=== PATIENT | male | born 1935 | race Caucasian/White ===

== ENCOUNTER 2019-04-07 11:22 | Outpatient (CLI) | payer MEDICARE, BC, SELFPAY ==
--- NOTE | ~2019-04-07 | CT_ITS ---
EXAMINATION: CT abdomen pelvis wo con DATE: 04/07/2019 12:27 INDICATION: Mid abdominal pain. Weight loss. TECHNIQUE: Computed tomography (CT) of the abdomen and pelvis was performed without intravenous contr ast. Automated exposure control and iterative reconstruction technique were employed. Exam dose: 325 .45 mGy-cm total exam DLP. COMPARISON: None. FINDINGS: Minimal dependent atelectasis at the lung bases. Normal heart size. There is coronary art juliane calcification. No pericardial or pleural effusion. The liver, gallbladder, spleen, pancreas and adrenal glands are unremarkable on this limited noncontr ast examination. Approximately 3.9 cm exophytic upper pole left renal cyst. Probable 1.5 cm exophytic right renal cyst probable 8 mm left renal cyst. No urinary tract calculus or hydroureteronephrosis. There is prominent abdominal aortic calcification and prominent calcification at the origin of the ferguson perior mesenteric and renal arteries, bilateral iliac artery calcifications. No abdominal aortic aneu rysm. No intraperitoneal or retroperitoneal or pelvic mass lesion or adenopathy or ascites. The urinary bladder is unremarkable. Moderate prostate enlargement. There is diverticulosis of the colon; no CT evidence of diverticulitis. Normal appendix. No bowel obs truction or intraperitoneal free air. There is a prominent Schmorl's node at the superior vertebral endplate of L3. There is moderately pro minent anterior wedge burst fracture deformity of L1. IMPRESSION: Bilateral renal cysts Diverticulosis of the colon Burst fracture deformity of L1 Reviewed, dictated and finalized at Location A. Reviewed, dictated and finalized at location B. DOOR MAN
[2019-04-07 11:53] LABS: Basophils Percent Auto 0.2 % (0.2-1.2); Eosinophils Absolute Auto 0.2 K/mm3 (0-0.3); Eosinophils Percent Auto 1.9 % (0-4.4); Hematocrit 35.8 % (42.0-52.0); Hemoglobin 11.5 g/dL (14.0-18.0); Immature Granulocyte Absolute 0.03 K/mm3 (0.00-0.031); Immature Granulocyte Percent A 0.3 % (0-0.5); Lymphocytes Absolute Auto 0.76 K/mm3 (0.9-3.2); Lymphocytes Percent Auto 8.8 % (18.3-44.2); Mean Corpuscular HGB Conc 32.1 g/dl (32-36); Mean Corpuscular Hemoglobin 30.7 pg (26-34); Mean Corpuscular Volume 95.5 fl (80-100); Mean Platelet Volume 10.1 fl (7.4-10.4); Monocytes Absolute Auto 1.2 K/mm3 (0.1-0.6); Monocytes Percent Auto 13.7 % (2.6-8.5); Neutrophils Absolute Auto 6.5 K/mm3 (1.3-6.7); Neutrophils Percent Auto 75.1 % (45.5-73.1); Platelet Count Result 127 k/mm3 (150-375); Red Blood Count 3.75 M/mm3 (4.6-6.20); Red Cell Distribution Width 15.3 % (11.5-14.5); White Blood Count 8.6 K/mm3 (4.5-10.0)
[2019-04-07 12:05] LABS: Alanine Aminotransferase 28 U/L (4-50); Albumin Level 3.9 g/dL (3.5-5.1); Alkaline Phosphatase 83 U/L (38-126); Aspartate Amino Transferase 36 U/L (17-59); Bilirubin,Total 0.4 mg/dL (0.2-1.3); Blood Urea Nitrogen 48 mg/dL (9-20); Calcium 8.5 mg/dL (8.4-10.2); Carbon Dioxide 25 mmol/L (22-30); Chloride 102 mmol/L (98-107); Estimated Glomerular Filt Rate 17; Glucose 99 mg/dL (75-110); Potassium 4.1 mmol/L (3.4-5.0); Sodium 136 mmol/L (137-145)
== END 2019-04-07 11:23 | disposition home or self-care (01) ==
PROVIDERS: PCP Internal Medicine; Visit Provider Internal Medicine
DX: R63.4 Abnormal weight loss (principal); R10.9 Unspecified abdominal pain; N28.1 Cyst of kidney, acquired; K57.30 Diverticulosis of large intestine without perforation or abscess without bleeding
CPT/HCPCS: 36415; 74176; 80053; 85025

== ENCOUNTER 2019-04-13 15:04 | Outpatient (CLI) | payer MEDICARE, BC, SELFPAY ==
--- NOTE | ~2019-04-13 | US_ITS ---
EXAMINATION: US renal BI EXAM DATE: 04/13/2019 16:19 INDICATION: Disorder of kidney. TECHNIQUE: Multiple grayscale and Doppler images of the kidneys were obtained (by a technologist who performed the scan) and subsequently reviewed. Comparison is made to prior examination from 7. FINDINGS: There is bilateral renal cortical thinning. Right kidney: There is normal contour and significantly increased echogenicity. It measures 9.9 x 4. 6 x 5.3 centimeters. There is a cyst measuring 1.7 cm. There is no hydronephrosis. Left kidney: There is normal contour and echogenicity. It measures 9.3 x 4.0 x 4.7 centimeters. Ther e is a left renal cyst measuring 3 cm. Another smaller cyst measuring 8 mm. There is no hydronephro sis. Bladder unremarkable. IMPRESSION: 1. Echogenic kidneys, medical renal disease. 2. Mild renal atrophy. Reviewed, dictated and finalized at location B. NG PULLER
== END 2019-04-13 15:05 | disposition home or self-care (01) ==
PROVIDERS: PCP Internal Medicine; Visit Provider Internal Medicine
DX: N28.89 Other specified disorders of kidney and ureter (principal)
CPT/HCPCS: 76775

== ENCOUNTER 2019-07-31 16:28 | Inpatient (IN) | payer MEDICARE, BC, SELFPAY ==
[2019-07-31] VITALS (7 sets, daily range): BP systolic 102–191; BP diastolic 58–96; PULSE 45–62; RESP 16–19; TEMP 36.2–36.8; O2SAT 97–100; BMI 19.8
--- NOTE | ~2019-07-31 | CT_ITS ---
EXAMINATION: CT brain wo con DATE: 07/31/2019 16:56 INDICATION: Status post fall. Injury or laceration. Patient on blood thinners. TECHNIQUE: Computed tomography (CT) of the head was performed without intravenous contrast. The dose- length product was 605.33 mGy-cm. The mA was adjusted according to patient size. Iterative reconstruc tion technique was employed. COMPARISON: None FINDINGS: Generalized atrophy. There are scattered mild periventricular and subcortical white matter changes, most likely related to small vessel ischemic disease (microangiopathy). Chronic right lacuna r infarction of the internal capsule. Chronic left thalamic infarction. Chronic infarct of the fidel. No acute intracranial hemorrhage, infarction, mass or mass effect. Paranasal sinuses and mastoids are pneumatized. No depressed skull fractures. IMPRESSION: 1. No acute intracranial abnormality. 2: Multiple chronic infarctions, unchanged. 3: Chronic age-related findings. Reviewed, dictated and finalized at location A.
--- NOTE | ~2019-07-31 | CT_ITS ---
EXAMINATION: CT cervical spine wo con DATE: 07/31/2019 16:56 INDICATION: Neck pain after fall TECHNIQUE: Computed tomography (CT) of the cervical spine was performed without intravenous contrast. The dose-length product was 368 mGy-cm. Automated exposure control and iterative reconstruction tech [employer] were employed. COMPARISON: None FINDINGS: There is straightening of cervical lordosis. There is disc narrowing at C4-5, C5-6 and C6-7 . There are dorsal osteophytes at C5-6 and C6-7. There is degenerative anterolisthesis at C3-4. There is moderate multilevel facet and uncinate hypertrophy. Odontoid process within normal limits. Mastoi ds are pneumatized. There is intracranial atherosclerosis. There is carotid atherosclerosis. There is scarring at the right apex. IMPRESSION: 1. No acute abnormality of the cervical spine. 2: Moderate-severe cervical spondylosis. Reviewed, dictated and finalized at location A.
--- NOTE | ~2019-07-31 | CT_ITS ---
EXAMINATION: CT abdomen pelvis wo con DATE: 07/31/2019 19:19 INDICATION: Abnormal lipase TECHNIQUE: Computed tomography (CT) of the abdomen and pelvis was performed without intravenous contr ast. The dose-length product was 241.09 mGy-cm. Automated exposure control and iterative reconstructi on technique were employed. COMPARISON: CT dated 04/07/2019 FINDINGS: Right lower lobe dependent atelectasis. No significant pleural or pericardial effusion. Hea rt size normal. There is atherosclerosis of the aorta. There are small low-density lesions in the sudha er and kidneys, likely benign cysts. There is a 4 cm left renal cyst. The spleen, pancreas, adrenal g lands are unremarkable. No renal stones. No hydronephrosis. Nonobstructive bowel gas pattern. Moderat e colonic fecal loading. Diverticulosis without evidence for diverticulitis. No lymphadenopathy. Ther e is moderate gas in the colon. No significant small bowel dilation. There is an L1 burst fracture wh ich is likely chronic. There is prostate enlargement. IMPRESSION: 1. No acute abdominal abnormality. Reviewed, dictated and finalized at location A.
--- NOTE | ~2019-07-31 | XR_ITS ---
EXAMINATION: XR chest 1V portable 07/31/2019 17:34 INDICATION: Syncope. Low blood pressure. PROCEDURE: AP portable chest COMPARISON: Comparison to multiple prior studies sequentially, with oldest reviewed study dated 09/30. FINDINGS: The lungs are clear. The cardiomediastinal silhouette is within normal limits. There are no pleural effusions. There is no pneumothorax suspected. IMPRESSION: 1: NO ACUTE CARDIOPULMONARY DISEASE. Reviewed, dictated and finalized at location A.
--- NOTE | 2019-07-31 16:40 | ECG_ITS ---
Measurements Intervals [place] Rate: 44 P: -74 NV: 159 QRS: 32 QRSD: 143 T: 37 QT: 541 QTc: 465 Interpretive Statements SINUS BRADYCARDIA RIGHT BUNDLE BRANCH BLOCK BASELINE ARTIFACT- I, III, AVR, AVL, V1-V3 ABNORMAL ECG Electronically Signed On 07-31-2019 17:46:24 CDT by Jaime Ca D.O.
[2019-07-31] MEDS: SODIUM CHLORIDE 0.9% IV 500 ML 999 ML IV CONT (17:24)
[2019-07-31] MEDS: SODIUM CHLORIDE 0.9% IV 500 ML 999 ML (17:27)
[2019-07-31 17:35] LABS: Basophils Percent Auto 0.2 % (0.2-1.2); Eosinophils Percent Auto 0.1 % (0-4.4); Hematocrit 33.3 % (42.0-52.0); Hemoglobin 10.7 g/dL (14.0-18.0); Immature Granulocyte Absolute 0.07 K/mm3 (0.00-0.031); Immature Granulocyte Percent A 0.5 % (0-0.5); Lymphocytes Absolute Auto 0.55 K/mm3 (0.9-3.2); Lymphocytes Percent Auto 4.2 % (18.3-44.2); Mean Corpuscular HGB Conc 32.1 g/dl (32-36); Mean Corpuscular Volume 96.5 fl (80-100); Mean Platelet Volume 11.1 fl (7.4-10.4); Monocytes Absolute Auto 0.6 K/mm3 (0.1-0.6); Monocytes Percent Auto 4.9 % (2.6-8.5); Neutrophils Absolute Auto 11.7 K/mm3 (1.3-6.7); Neutrophils Percent Auto 90.1 % (45.5-73.1); Platelet Count Result 154 k/mm3 (150-375); Red Blood Count 3.45 M/mm3 (4.6-6.20); Red Cell Distribution Width 14.6 % (11.5-14.5)
[2019-07-31 17:45] LABS: INR 1.5; Partial Thromboplastin Time 30.3 SECONDS (22.3-36.8); Prothrombin Time 17.4 Seconds (11.1-14.7)
[2019-07-31 17:47] LABS: Alanine Aminotransferase 84 U/L (4-50); Albumin Level 4.2 g/dL (3.5-5.1); Alkaline Phosphatase 85 U/L (38-126); Aspartate Amino Transferase 78 U/L (17-59); Bilirubin,Total 0.6 mg/dL (0.2-1.3); Blood Urea Nitrogen 58 mg/dL (9-20); Carbon Dioxide 27 mmol/L (22-30); Chloride 103 mmol/L (98-107); Estimated CRCL calculation 14 ml/min; Estimated Glomerular Filt Rate 13; Glucose 114 mg/dL (75-110); Lipase 407 U/L (23-300); Potassium 5.6 mmol/L (3.4-5.0); Sodium 136 mmol/L (137-145)
[2019-07-31 17:59] LABS: NT Pro B Type Natriuretic Pept 445 PG/ML (5-100); Troponin I 0.018 ng/mL (0.000-0.034)
--- NOTE | 2019-07-31 18:05 | PC.NURSE ---
Patient made aware of need for urine sample x2. Stated he would attempt, refusing cath at this time. Drink given per verbal okay from Scotty REMY
[2019-07-31 19:00] LABS: Add Urine Microscopic? YES; Appearance Urine Clear (Clear); Bacteria Urine Trace /hpf; Bilirubin Urine Negative (Negative); Blood Urine Negative (Negative); Color Urine Yellow (Yellow); Glucose Urine UA Negative (Negative); Ketones Urine Negative (Negative); Leukocyte Esterase Ur Negative LEU/UL (Negative); Nitrate Urine Negative (Negative); Protein Urine 2+ mg/dL (Negative); RBC Urine 0-2 /hpf (0-2); Specific Grav Ur 1.014 (1.001-1.035); Urobilinogen Urine Negative mg/dL (<2.0); WBC Urine 0-3 /hpf
--- NOTE | 2019-07-31 20:03 | ED.GENADULT ---
HPI - General Adult General Chief complaint: Fall <BETO Alexander Last Filed: 07/31/19 20:09> Stated complaint: fall/ear laceration <BETO Alexander Last Filed: 07/31/19 20:09> Time Seen by Provider: 07/31/19 17:12 <BETO Alexander Last Filed: 07/31/19 20:09> Source: patient, family and EMS <BETO Alexander Last Filed: 07/31/19 20:09> Mode of arrival: EMS <BETO Alexander Last Filed: 07/31/19 20:09> Limitations: no limitations <BETO Alexander Last Filed: 07/31/19 20:09> History of Present Illness HPI narrative: Patient is a 83-year-old male who presents to emergency department for evaluation of injuries related to having fallen into the bathtub patient is amnestic to the reason of having fallen and sounds like he likely had a syncopal episode patient presents to emergency department noting that he has no pain has laceration to the left ear. Patient is currently on Eliquis for atrial fibrillation and CVA. Patient is followed by Dr. Pritchard who recently reduced his blood pressure medication and took him off of his digoxin. Patient notes he had one similar occurrence in the past. Patient denies headache lightheadedness chest pain shortness of breath URI symptoms or recent illness. Patient on arrival resting in the room in no distress. Patient notes he did not take any of his medications today <BETO Alexander Last Filed: 07/31/19 20:09> Related Data Home medications: Home Medications Medication Instructions Recorded Confirmed Eliquis 2.5 mg PO BID 01/14/19 01/14/19 Kendrick-3 Fish Oil 2 cap PO DAILY 01/14/19 01/14/19 aspirin 81 mg PO BID 01/14/19 01/14/19 atorvastatin 40 mg PO DAILY 01/14/19 01/14/19 calcitriol 0.25 mcg PO 3XW 01/14/19 01/14/19 ezetimibe 5 mg PO DAILY 01/14/19 01/14/19 melatonin 10 mg PO HS PRN 01/14/19 01/14/19 niacin 500 mg PO DAILY 01/14/19 01/14/19 tamsulosin 0.4 mg PO DAILY 01/14/19 01/14/19 <Yobany Fajardo PA-C - Last Filed: 07/31/19 20:09> Allergies/adverse reactions: Allergies Allergy/AdvReac Type Severity Reaction Status Date / Time No Known Allergies Allergy Unknown Verified 04/08/19 12:18 <Yobany Fajardo PA-C - Last Filed: 07/31/19 20:09> Review of Systems Review of Systems: All systems reviewed & are unremarkable except as noted in HPI and below <Yobany Fajardo PA-C - Last Filed: 07/31/19 20:09> [facility] Past Medical History Medical History: Medical History A-fib Chronic anticoagulation with Eliquis Anxiety Arthritis knees ASHD (arteriosclerotic heart disease) Burst fracture of lumbar vertebra with routine healing Chronic kidney disease Stage IV CKD (chronic kidney disease) stage 1, GFR 90 ml/min or greater CVA (cerebral vascular accident) Old lacunar infarcts at the fidel, left thalamus and right basal ganglia DJD (degenerative joint disease), lumbosacral Gout History of BPH HTN (hypertension), benign Hx of thrombophlebitis Hypercholesteremia Hypertension Hypertriglyceridemia Mild cognitive impairment Obstructive sleep apnea Mild obstructive sleep apnea On sleep study from 2000. <Yobany Fajardo PA-C - Last Filed: 07/31/19 20:09> Surgical History Surgical History: Surgical History History of cataract surgery Bilateral cataract removal History of ethmoidectomy With bilateral maxillary antrostomy 2010 History of skin graft To left foot After an accident at work. <Yobany Fajardo PA-C - Last Filed: 07/31/19 20:09> Social History Social History: Social History Social History: The patient lives in [place] with his of 64 years. He does not drink alcohol but did drink alcohol heavily when he was younger. He served in the [employer] for 18 months. He is a
[2019-07-31 20:52] LABS: Troponin I 0.022 ng/mL (0.000-0.034)
[2019-07-31] MEDS: FAMOTIDINE 20 MG/2 ML VIAL IV PUSH (22:08)
[2019-07-31] MEDS: LACTATED RINGERS 1,000 ML 80 ML IV CONT (22:08)
--- NOTE | 2019-07-31 22:11 | ADMGEN ---
This patient, Jose Roberto Gregorio, was admitted to [facility] Surg Room 304-01. Patient/family oriented to hospital policies and general routines including ID bracelet, bed and alarms, visiting hours, pain management, procedures, bathroom and other care routines, personal items, smoking policy, room service/diet, and visiting hours. Valuables list has been completed. Information on how to activate the Rapid Response Team has been discussed. Patient/Family are encouraged to report perceived risks to care and to ask questions if they do not understand what they are told or what they should do.
--- NOTE | 2019-07-31 23:04 | PC.NURSE ---
Patient unable to state med list. Med list brought in by patient does not match external med history and refill dates are behind for medications. Will attempt to call pharmacy in morning when open.
[2019-08-01] VITALS (9 sets, daily range): BP systolic 141–160; BP diastolic 63–69; PULSE 48–64; RESP 18; TEMP 36.6–36.9; O2SAT 97–100
[2019-08-01 00:12] LABS: Potassium 4.5 mmol/L (3.4-5.0)
[2019-08-01 00:28] LABS: Troponin I 0.028 ng/mL (0.000-0.034)
--- NOTE | 2019-08-01 06:52 | PM.IMHP ---
H&P: HPI History of Present Illness Chief complaint: Syncope, Acute Kidney Injury, Bradycardia, Narrative: Date and time of patient contact: Jose Roberto Gregorio is a 83 year old male with a past medical history of paroxysmal atrial fibrillation on chronic anticoagulation, kidney disease, and hypertension who presented to the ER from home via EMS due to a fall in the shower. The patient reports that he was in the shower when he fell backwards. He states that he did not slip or loses balance. He simply fell. He does not think that he lost consciousness. He struck the left side of his head and ear on the tub. He had a laceration with a significant amount of blood loss. He denies any chest pain or shortness of breath prior to the fall. He denies any visual changes. He states that he has a headache due to the bandage wrapped around his head. I loosened the bandage while I was at the patient's bedside. He reported that this improved his discomfort. In the ER the patient's laceration was repaired. He denies any nausea or vomiting. He was recently evaluated by his data technical lead and is cardiac medications were adjusted. At the time of my evaluation the patient did not know the exact adjustments that had been made to his heart medications. The patient is a fairly reliable historian but does have a history of mild cognitive impairment/early evidence of memory loss. He denies any hematochezia, melena, dysuria, hematuria or other manner of blood loss besides the laceration to his ear. The patient's home medication list that he provided nursing staff does not match the external med history. Nursing staff will have to call the patient's pharmacy to confirm medications prior to the order being placed. Please disregard home medications listed below as these have not been confirmed. Review of Systems Review of Systems: Narrative: 12 systems were reviewed with pertinent positives and negatives per HPI. Except as documented in the HPI, all other systems were reviewed and are negative. [facility] Past Medical History Medical History (Updated 08/01/19 @ 08:47 by July Arboleda DO) A-fib Chronic anticoagulation with Eliquis Anxiety Arthritis knees Burst fracture of lumbar vertebra with routine healing Chronic anemia Chronic congestive heart failure With echocardiogram January 2019: Mild mitral valve regurgitation, [id number] tricuspid valve regurgitation, left ventricular systolic function moderate to severely reduced with EF of 35-40, mild pulmonary hypertension with RVSP of 40-45 Chronic kidney disease Stage IV CVA (cerebral vascular accident) Old lacunar infarcts at the fidel, left thalamus and right basal ganglia DJD (degenerative joint disease), lumbosacral Essential hypertension Gout History of BPH Hx of thrombophlebitis Hypercholesteremia Hypertriglyceridemia Mild cognitive impairment Obstructive sleep apnea Mild obstructive sleep apnea On sleep study from 2000. Surgical History Surgical History History of cataract surgery Bilateral cataract removal History of ethmoidectomy With bilateral maxillary antrostomy 2010 History of skin graft To left foot After an accident at work. Family History Family History (Updated 08/01/19 @ 06:56 by July Arboleda DO) Father Cardiovascular disease Mother Cardiovascular disease Social History Social History (Updated 08/01/19 @ 06:59 by July Arboleda DO) Social History: The patient lives in [place] with his of 64 years. He does not drink alcohol but did drink alcohol heavily when he was younger. He served in the [employer] for 18 months. 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 He worked at [employer] for 38 years. He has a daughter and a son who both live nearby. He quit smoking in the 1960s but had a 20 pack per year smoking history. Primary care physician: Dr. Paddy Stringer Code status: DNR (patient h
[2019-08-01 08:19] LABS: Hematocrit 24.7 % (42.0-52.0); Immature Platelet Fraction Pct 3.4 % (0.9-11.2); Mean Corpuscular HGB Conc 32.4 g/dl (32-36); Mean Corpuscular Hemoglobin 31.4 pg (26-34); Mean Corpuscular Volume 96.9 fl (80-100); Mean Platelet Volume 10.8 fl (7.4-10.4); Platelet Count Result 116 k/mm3 (150-375); Red Blood Count 2.55 M/mm3 (4.6-6.20); Red Cell Distribution Width 14.6 % (11.5-14.5)
[2019-08-01 08:30] LABS: Blood Urea Nitrogen 53 mg/dL (9-20); Calcium 8.2 mg/dL (8.4-10.2); Carbon Dioxide 25 mmol/L (22-30); Chloride 106 mmol/L (98-107); Estimated CRCL calculation 12 ml/min; Estimated Glomerular Filt Rate 15; Glucose 75 mg/dL (75-110); Potassium 4.2 mmol/L (3.4-5.0); Sodium 136 mmol/L (137-145)
--- NOTE | 2019-08-01 12:39 | PM.CNCAR ---
Assessment and Plan Assessment and plan (1) Syncope: Code(s): R55 - Syncope and collapse Status: Acute Assessment and Plan: Patient had fall with laceration to head while at shower. Positive orthostatic vitals on admission as well as NIRAJ corrected with IV fluids both suggest that syncope is related to orthostatic event. He is bradycardic in the 40s and that also on differential. He was taken off Digoxin recently and Amiodarone dose was decreased Will d/c amiodarone and hold Coreg for now. Will consider resuming Coreg at lower dose tomorrow depending on patient heart rate. (2) Acute renal failure superimposed on stage 4 chronic kidney disease: Code(s): N17.9 - Acute kidney failure, unspecified; N18.4 - Chronic kidney disease, stage 4 (severe) Status: Acute Assessment and Plan: Baseline creatinine 3.5. On admission Cr was 4.3. Better with IV fluids. (3) Bradycardia: Code(s): R00.1 - Bradycardia, unspecified Status: Acute Assessment and Plan: sinus bradycardia Continue to monitor on tele D/C Amiodarone. Holding coreg. may resume tomorrow at lower dose if heart rate better (4) Cardiomyopathy: Code(s): I42.9 - Cardiomyopathy, unspecified Status: Acute Assessment and Plan: EF 40%. Appears well compensated and possibly dry. Never had invasive ischemic evaluation due to CKD. Had small apical fixed defect on recent Nuc stress which is probably out of propotion to his LV dysfunction. History of Present Illness History of Present Illness Consult date/time: 08/01/19 12:39 83 yo male with h/o Hypertension , Hyperlipidemia , CKD, cardiomyopathy with EF 35-40%, and Atrial fibrillation who presented with fall Patient was in the shower and fell backward sustained laceration on head. He does not believe that he lost his consciousness. His heart rate was 44 on admisison. Labs showed Cr 4.3, increased from his baseline around 3.5. He was orthostatic on presentation. He received IV fluids and his creatinine improved today to 3.8 His EKG shows sinus bradycardia at HR 44 with RBBB Off note, He was evaluated via telehealth visit at Dr Salinas office earlier this month when he reported increased dizziness and falls. he was taken off Digoxin and his Amiodarone dose was decreased. He was continued on Coreg. he is also on Eliquis for stroke prevention. He denies chest pain. No shortness of breath at rest. No dyspnea on exertion. No orthopnea. No PND. No leg swelling. No nausea and vomiting. He was in [facility] in 01/14/19 because of Atrial fibrillation with rapid ventricular response . On Eliquis 2.5mg BID. Had ECHO done in 01/14/19 showed mild mitral valve regurgitation. The aortic ashlee is mildly sclerotic with mild restricted motion. There is mild to moderate tricuspid valve regurgitation. LV chamber dimension is top normal. LVSF is moderately to severely reduced, estimated at 35-40%. There is mildly increased LV wall thickness. Right ventricular systolic function is normal. Left atrial chamber dimension is mildly to moderately enlarged. Right atrial chamber dimension is normal. There is no aortic valve stenosis. Mild pulmonary HTN, estimated pulmonary arterial systolic pressure is 40-45 mmHg . Lexiscan test showed no significant ST-T changes with exercise but demonstrated an area old small mild infarct involving apical segment of left ventricle, global hypokinesis with EF 33%. Patient is a former heavy smoker and is retired. Reason For Visit: Syncope, Acute Kidney Injury, Bradycardia, Review of Systems Review of Systems: All systems reviewed & are unremarkable except as noted in HPI and below Constitutional: Constitutional: Denies fatigue and Denies headache(s) Eyes: Eyes: Denies blurry vision ENT: Reports Normal hearing present and Denies headache(s) Cardiovascular: Cardiovascular: Denies chest pain, Denies diaphoresis, Denies pedal edema, Denies leg ed
--- NOTE | 2019-08-01 16:06 | PM.IMPN ---
Progress Note: A&P Assessment and Plan (1) Syncope: Code(s): R55 - Syncope and collapse Status: Acute Assessment and Plan: 08/01/19 16:06 Patient 83-year-old male with history of atrial fibrillation coronary artery disease cardiomyopathy with ejection fraction 30-40% patient presented emergency department after he fell in a shower sustained left ear laceration, patient is poor historian does not tell exactly what happened prior to fall, denies any chest pain dizziness or palpitation fever or chills, patient has been having dizzy spells he was seen by his optical manufacturing technician on [facility] and digoxin was stopped, today patient was seen by his optical manufacturing technician have stopped the Coreg and amiodarone as well as Eliquis plan is to continue monitor may reassess tomorrow and plan, will PT OT evaluate the patient and further recommendation to follow (2) Acute renal failure superimposed on stage 4 chronic kidney disease: Code(s): N17.9 - Acute kidney failure, unspecified; N18.4 - Chronic kidney disease, stage 4 (severe) Status: Acute Assessment and Plan: The patient received gentle IV fluid hydration overnight. His repeat creatinine today is back to baseline. Will stop IV fluids at this time. (3) Bradycardia: Code(s): R00.1 - Bradycardia, unspecified Status: Acute Assessment and Plan: The patient's home cardiac medications have not been resumed as they have not been verified on the patient's home med rec. I am hopeful the nursing staff will be able to obtain the patient's accurate med rec or the patient's optical manufacturing technician may have a record of what medications the patient is post be on. Currently the patient is mildly bradycardic. Patient was seen by his optical manufacturing technician Coreg is stopped will monitor and plan (4) Anemia: Code(s): D64.9 - Anemia, unspecified Status: Acute Assessment and Plan: Acute on chronic anemia. Laceration on his here however I would be surprised that this would result in a 1.7 gram drop in his hemoglobin. Will check stool for occult blood. Will repeat CBC in a.m.. Subjective Date/time seen: 08/01/19 16:06 Patient 83-year-old male with history of atrial fibrillation coronary artery disease cardiomyopathy with ejection fraction 30-40% patient presented emergency department after he fell in a shower sustained left ear laceration, patient is poor historian does not tell exactly what happened prior to fall, denies any chest pain dizziness or palpitation fever or chills, patient has been having dizzy spells he was seen by his optical manufacturing technician on [facility] and digoxin was stopped, today patient was seen by his optical manufacturing technician have stopped the Coreg and amiodarone as well as Eliquis plan is to continue monitor may reassess tomorrow and plan, will PT OT evaluate the patient and further recommendation to follow Review of Systems Review of Systems: All systems reviewed & are unremarkable except as noted in HPI and below Exam Const: General: no acute distress and uncomfortable HENMT: General nose exam: Normal nares present Other: Left ear with wound dressing Eyes: General: appearance normal, both eyes and all related structures Sclera: sclerae normal Neck: Neck: supple Resp: Effort & Inspection: normal respiratory effort Auscultation: clear to auscultation bilaterally Cardio: Other: Irregularly irregular GI: Auscultation: normal bowel sounds Skin: General skin exam: normal color Neuro: Speech: normal speech Sensory Exam: normal sensation Extrem: General: normal to inspection Psych: Affect: Anxious affect present Objective Data Vital Signs Vital Signs: Vital Signs - 24 hr 07/31/19 16:30 07/31/19 17:24 07/31/19 17:25 Temperature 97.2 F L Pulse Rate 46 L 46 L 57 L Respiratory Rate 18 Blood Pressure 168/73 H 191/82 H 102/58 L Pulse Oximetry 100 07/31/19 17:53 07/31/19 19:32 07/31/19 20:54 Temperature Pulse Rate 53 L 58 L 62 Re
[2019-08-01] MEDS: FAMOTIDINE 20 MG/2 ML VIAL IV PUSH ×2 (16:58→20:10)
[2019-08-01] MEDS: OMEGA 3 POLYUNSAT FATTY ACIDS 1 GM CAP PO (16:58)
[2019-08-01] MEDS: ASPIRIN 325 MG TABLET PO (16:58)
[2019-08-01] MEDS: VENLAFAXINE HCL 75 MG TABLET PO (20:10)
[2019-08-01] MEDS: MELATONIN 5 MG TABLET PO (20:10)
[2019-08-01] MEDS: TAMSULOSIN HCL 0.4 MG CAPSULE PO (20:10)
[2019-08-01] MEDS: DONEPEZIL HCL 5 MG TABLET PO (20:10)
[2019-08-02] VITALS (11 sets, daily range): BP systolic 148–173; BP diastolic 70–81; PULSE 50–77; RESP 16–18; TEMP 36.2–36.8; O2SAT 97–99; BMI 19.8
[2019-08-02 06:22] LABS: Hematocrit 24.7 % (42.0-52.0); Hemoglobin 8.1 g/dL (14.0-18.0); Immature Platelet Fraction Pct 2.6 % (0.9-11.2); Mean Corpuscular HGB Conc 32.8 g/dl (32-36); Mean Corpuscular Hemoglobin 31.8 pg (26-34); Mean Corpuscular Volume 96.9 fl (80-100); Mean Platelet Volume 11.2 fl (7.4-10.4); Platelet Count Result 118 k/mm3 (150-375); Red Blood Count 2.55 M/mm3 (4.6-6.20); Red Cell Distribution Width 14.6 % (11.5-14.5); White Blood Count 8.7 K/mm3 (4.5-10.0)
[2019-08-02 06:39] LABS: Albumin Level 3.1 g/dL (3.5-5.1); Blood Urea Nitrogen 51 mg/dL (9-20); Calcium 8.1 mg/dL (8.4-10.2); Carbon Dioxide 26 mmol/L (22-30); Chloride 105 mmol/L (98-107); Estimated CRCL calculation 12 ml/min; Estimated Glomerular Filt Rate 14; Glucose 87 mg/dL (75-110); Phosphorus 4.1 mg/dL (2.5-4.5); Potassium 4.7 mmol/L (3.4-5.0); Sodium 136 mmol/L (137-145)
[2019-08-02] MEDS: calcitrioL 0.25 MCG CAPSULE PO (09:50)
[2019-08-02] MEDS: ASPIRIN 325 MG TABLET PO ×2 (09:51→16:08)
[2019-08-02] MEDS: THERAPEUTIC MULTIVITAMINS/MINERALS TAB (*BKC) 1 TABLET PO (09:51)
[2019-08-02] MEDS: NIACIN SA 500 MG TABLET PO (09:51)
[2019-08-02] MEDS: VENLAFAXINE HCL 75 MG TABLET PO ×2 (09:52→21:00)
[2019-08-02] MEDS: MONTELUKAST SODIUM 10 MG TABLET PO (09:52)
[2019-08-02] MEDS: OMEGA 3 POLYUNSAT FATTY ACIDS 1 GM CAP PO ×2 (09:52→16:08)
[2019-08-02] MEDS: allopurinoL 300 MG TABLET PO (09:52)
[2019-08-02] MEDS: EZETIMIBE 5 MG TABLET PO (09:52)
[2019-08-02] MEDS: FAMOTIDINE 20 MG/2 ML VIAL IV PUSH ×2 (09:53→21:24)
--- NOTE | 2019-08-02 09:53 | PM.PNCARD ---
Progress Note: A&P Assessment and Plan (1) Anemia: Code(s): D64.9 - Anemia, unspecified Status: Acute (2) Syncope: Code(s): R55 - Syncope and collapse Status: Acute Assessment and Plan: NO NEW EPISODES NEEDS NEUROLOGY FU (3) Acute dehydration: Code(s): E86.0 - Dehydration Status: Acute Assessment and Plan: pT APPEARS STABLE FROM CARDIAC STANDPOINT Subjective Date/time seen: 08/02/19 09:53 Pt was seen and exaMINED FEELS FINE. HAD cva IN THE PAST Review of Systems Review of Systems: All systems reviewed & are unremarkable except as noted in HPI and below Constitutional: Constitutional: Reports as per HPI Eyes: Eyes: Reports as per HPI ENT: Reports system reviewed and no additional complaints, except as documented and Reports as per HPI Cardiovascular: Cardiovascular: Reports as per HPI Respiratory: Respiratory: Reports as per HPI Gastrointestinal: Gastrointestinal: Reports as per HPI Genitourinary: Genitourinary: Reports as per HPI Musculoskeletal: Musculoskeletal: Reports as per HPI Exam Const: General: no acute distress Nutritional Appearance: well nourished Orientation/consciousness: patient oriented x3 HENMT: Head: normal to inspection and atraumatic Ears: hearing grossly normal bilaterally Face and sinus: normal facial exam Eyes: General: appearance normal, both eyes and all related structures Pupils: Equal, round and reactive pupils present EOM: EOMs intact bilaterally Neck: Neck: supple Chest: Chest palpation & inspection: normal inspection of the chest Resp: Effort & Inspection: normal respiratory effort and no respiratory distress Auscultation: clear to auscultation bilaterally Cardio: Jugular venous distension: no JVD Rate: regular rate Heart sounds: S1 normal heart sound present, S2 normal heart sound present and no murmurs Peripheral pulses: Peripheral pulses 2+ throughout GI: GI Palp: No abdominal tenderness Auscultation: normal bowel sounds Skin: General skin exam: normal color Neuro: General: patient oriented x3 Cranial nerves: Yes Equal, round and reactive pupils present Extrem: General: normal to inspection and no clubbing, cyanosis or edema Objective Data Vital Signs Vital Signs: Vital Signs - 24 hr 08/01/19 12:00 08/01/19 14:00 08/01/19 16:00 Temperature 36.7 C Pulse Rate 48 L 64 52 L Respiratory Rate 18 Blood Pressure 141/63 H Pulse Oximetry 97 08/01/19 20:00 08/01/19 22:50 08/02/19 00:00 Temperature 36.6 C Pulse Rate 57 L 55 L 55 L Respiratory Rate 18 Blood Pressure 147/69 H Pulse Oximetry 99 08/02/19 04:00 08/02/19 07:44 Temperature 36.6 C Pulse Rate 58 L 50 L Respiratory Rate 18 Blood Pressure 168/70 H Pulse Oximetry 97 Intake/Output Intake/Output: Intake & Output 07/30/19 07/31/19 08/01/19 08/02/19 23:59 23:59 23:59 23:59 Intake Total 1000 2034 700 Output Total 850 550 Balance 1000 1184 150 Meds/Results Medications: Active Medications Generic Name Dose Route Start Last Admin Trade Name Jose Alejandro PRN Reason Stop Dose Admin Allopurinol 300 mg 08/02/19 09:00 08/02/19 09:52 Zyloprim PO 300 mg DAILY LUIS MIGUEL Administration Aspirin 325 mg 08/01/19 17:00 08/02/19 09:51 Aspirin PO 325 mg BID LUIS MIGUEL Administration Calcitriol 0.25 mcg 08/02/19 09:00 08/02/19 09:50 Rocaltrol PO 0.25 mcg [id number] LUIS MIGUEL Administration Donepezil HCl 5 mg 08/01/19 21:00 08/01/19 20:10 Aricept PO 5 mg HS LUIS MIGUEL Administration Ezetimibe 5 mg 08/02/19 09:00 08/02/19 09:52 Zetia PO 5 mg DAILY LUIS MIGUEL Administration Famotidine 20 mg 07/31/19 21:00 08/02/19 09:53 Pepcid Iv IV PUSH 20 mg Q12HR LUIS MIGUEL Administration Fish Oil 1 gm 08/01/19 17:00 08/02/19 09:52 Lovaza PO 1 gm BID LUIS MIGUEL Administration Melatonin 5 mg 08/01/19 21:00 08/01/19 20:10 Melatonin PO 5 mg HS LUIS MIGUEL Administration Montelukast Sodi
[2019-08-02] MEDS: carvediloL 3.125 MG TABLET PO ×2 (14:14→21:24)
--- NOTE | 2019-08-02 15:37 | PM.IMPN ---
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 30-40% patient presented emergency department after he fell in a shower sustained left ear laceration, patient is poor historian does not tell exactly what happened prior to fall, denies any chest pain dizziness or palpitation fever or chills, patient has been having dizzy spells he was seen by his sheet metal shop helper on [employer] and digoxin was stopped, today patient was seen by his sheet metal shop helper have stopped the Coreg and amiodarone as well as Eliquis, plan was to continue monitor may reassess, today patient was seen by his Cardiology I discussed with him plan is to resume low-dose Coreg 3.125 b.i.d. hold Eliquis because of left ear bleeding, and will continue to monitor, patient is feeling better denies any chest pain shortness of breath palpitation fever or chills (2) Acute renal failure superimposed on stage 4 chronic kidney disease: Code(s): N17.9 - Acute kidney failure, unspecified; N18.4 - Chronic kidney disease, stage 4 (severe) Status: Acute Assessment and Plan: The patient received gentle IV fluid hydration overnight. His repeat creatinine today is back to baseline. Will stop IV fluids at this time. (3) Bradycardia: Code(s): R00.1 - Bradycardia, unspecified Status: Acute Assessment and Plan: The patient's home cardiac medications have not been resumed as they have not been verified on the patient's home med rec. I am hopeful the nursing staff will be able to obtain the patient's accurate med rec or the patient's sheet metal shop helper may have a record of what medications the patient is post be on. Currently the patient is mildly bradycardic. Plan is above (4) Anemia: Code(s): D64.9 - Anemia, unspecified Status: Acute Assessment and Plan: Acute on chronic anemia. Given the reported blood loss that the patient had both at home and in the ER this probably accounts for the patient's drop in hemoglobin. Most likely hemodilution as patient was slightly hydrated will monitor Will repeat CBC in a.m.. 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 30-40% patient presented emergency department after he fell in a shower sustained left ear laceration, patient is poor historian does not tell exactly what happened prior to fall, denies any chest pain dizziness or palpitation fever or chills, patient has been having dizzy spells he was seen by his sheet metal shop helper on [facility] and digoxin was stopped, today patient was seen by his sheet metal shop helper have stopped the Coreg and amiodarone as well as Eliquis, plan was to continue monitor may reassess, today patient was seen by his Cardiology I discussed with him plan is to resume low-dose Coreg 3.125 b.i.d. hold Eliquis because of left ear bleeding, and will continue to monitor, patient is feeling better denies any chest pain shortness of breath palpitation fever or chills Review of Systems Review of Systems: All systems reviewed & are unremarkable except as noted in HPI and below Exam Const: General: no acute distress and uncomfortable HENMT: General nose exam: Normal nares present Other: Left ear with wound dressing Eyes: General: appearance normal, both eyes and all related structures Sclera: sclerae normal Neck: Neck: supple Resp: Effort & Inspection: normal respiratory effort Auscultation: clear to auscultation bilaterally Cardio: Other: Irregularly irregular GI: Auscultation: normal bowel sounds Skin: General skin exam: normal color Neuro: Speech: normal speech Sensory Exam: normal sensation Extrem: General: normal to inspection Psych: Affect
[2019-08-02 18:16] LABS: Glucose Point of Care 83 (65-105)
[2019-08-02] MEDS: TAMSULOSIN HCL 0.4 MG CAPSULE PO (21:00)
[2019-08-02] MEDS: MELATONIN 5 MG TABLET PO (21:24)
[2019-08-02] MEDS: DONEPEZIL HCL 5 MG TABLET PO (21:24)
[2019-08-03] VITALS (9 sets, daily range): BP systolic 123–157; BP diastolic 65–96; PULSE 47–57; RESP 16–18; TEMP 36.4–36.7; O2SAT 98–100
[2019-08-03 05:52] LABS: Hematocrit 25.4 % (42.0-52.0); Hemoglobin 8.2 g/dL (14.0-18.0); Immature Platelet Fraction Pct 2.1 % (0.9-11.2); Mean Corpuscular HGB Conc 32.3 g/dl (32-36); Mean Corpuscular Hemoglobin 31.4 pg (26-34); Mean Corpuscular Volume 97.3 fl (80-100); Mean Platelet Volume 10.9 fl (7.4-10.4); Platelet Count Result 123 k/mm3 (150-375); Red Blood Count 2.61 M/mm3 (4.6-6.20); Red Cell Distribution Width 14.6 % (11.5-14.5); White Blood Count 8.2 K/mm3 (4.5-10.0)
[2019-08-03 06:04] LABS: Albumin Level 3.2 g/dL (3.5-5.1); Blood Urea Nitrogen 46 mg/dL (9-20); Calcium 8.3 mg/dL (8.4-10.2); Carbon Dioxide 28 mmol/L (22-30); Chloride 104 mmol/L (98-107); Estimated CRCL calculation 12 ml/min; Estimated Glomerular Filt Rate 14; Glucose 86 mg/dL (75-110); Phosphorus 3.8 mg/dL (2.5-4.5); Potassium 4.3 mmol/L (3.4-5.0); Sodium 136 mmol/L (137-145)
[2019-08-03] MEDS: ASPIRIN 325 MG TABLET PO (09:57)
[2019-08-03] MEDS: carvediloL 3.125 MG TABLET PO (09:58)
[2019-08-03] MEDS: EZETIMIBE 5 MG TABLET PO (09:58)
[2019-08-03] MEDS: NIACIN SA 500 MG TABLET PO (09:59)
[2019-08-03] MEDS: THERAPEUTIC MULTIVITAMINS/MINERALS TAB (*BKC) 1 TABLET PO (09:59)
[2019-08-03] MEDS: OMEGA 3 POLYUNSAT FATTY ACIDS 1 GM CAP PO (09:59)
[2019-08-03] MEDS: VENLAFAXINE HCL 75 MG TABLET PO (09:59)
[2019-08-03] MEDS: FAMOTIDINE 20 MG/2 ML VIAL IV PUSH (09:59)
[2019-08-03] MEDS: allopurinoL 300 MG TABLET PO (10:00)
[2019-08-03] MEDS: MONTELUKAST SODIUM 10 MG TABLET PO (10:00)
--- NOTE | 2019-08-03 13:59 | PM.DS ---
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 Discussed with plan with cardiology, pt to resume low-dose Coreg 3.125 b.i.d. and hold Eliquis. (2) Acute renal failure superimposed on stage 4 chronic kidney disease: Code(s): N17.9 - Acute kidney failure, unspecified; N18.4 - Chronic kidney disease, stage 4 (severe) Status: Acute Assessment and Plan: The patient received gentle IV fluid hydration overnight. His repeat creatinine today is back to baseline. Acute on chronic kidney failure due to dehydration Pt to follow with his neonatal specialist in [place]. (3) Bradycardia: Code(s): R00.1 - Bradycardia, unspecified Status: Acute Assessment and Plan: Plan is above (4) Anemia: Code(s): D64.9 - Anemia, unspecified Status: Acute Assessment and Plan: Acute on chronic anemia. Hb is 8.2 on discharge pt has history of CKD. DS: Summary Time Spent with Patient Time attestation: Total time spent providing and/or coordinating discharge services:40 minutes on the day of discharge Exam Const: General: no acute distress and uncomfortable Resp: Effort & Inspection: normal respiratory effort Auscultation: clear to auscultation bilaterally Cardio: Other: Irregularly irregular GI: Auscultation: normal bowel sounds Skin: General skin exam: normal color Neuro: Speech: normal speech Sensory Exam: normal sensation Extrem: General: normal to inspection Psych: Affect: Anxious affect present DS: Data Data Completed and Pending Labs on day of discharge: Labs from last 24 hours 06/02/20 06/02/20 06/01/20 05:29 05:29 18:05 WBC 8.2 RBC 2.61 L Hgb 8.2 L Hct 25.4 L MCV 97.3 MCH 31.4 MCHC 32.3 RDW 14.6 H Plt Count 123 L MPV 10.9 H % Immature Plt Fraction 2.1 Sodium 136 L Potassium 4.3 Chloride 104 Carbon Dioxide 28 BUN 46 H Creatinine 4.00 H Estim Creat Clear Calc 12 Estimated GFR 14 L Glucose 86 POC Capillary Glucose 83 Calcium 8.3 L Phosphorus 3.8 Albumin 3.2 L Discharge Plan Discharge Attending physician on discharge: Ladan Santiago Consulting providers: Yobany Fajardo ; Geoff Adams ; Hiram Bravo ; Charly Wilson ; Jaime Ca ; Michael Ivan Discharging Clinician: Ladan Santiago Anticipated Discharge Date/Time: 08/03/19 16:00 Patient Disposition: Home Health Service Activity: as tolerated Diet: renal Discharge Instructions: pt. to resume services through [facility]. [facility] can be reached at [phone]. Nursing, please fax discharge instructions to HH once complete at [phone]. thank you. ELIQUIS HAS BEEN STOPPED ON DISCHARGE FOLLOW UP CARDIOLOGY, PCP AND neonatal specialist at [facility] Patient Instructions: Antibiotic Form Stand Alone Forms: General Discharge Information Follow-up/Referrals: Radames Salinas MD [Physician] - Paddy Stringer MD [Primary Care Provider] - Discharge Medications: New carvedilol [Coreg] 3.125 mg Tablet 3.125 mg PO Q12HR Qty: 60 RF: 0 Continued atorvastatin 40 mg Tablet 40 mg PO DAILY RF: 0 venlafaxine 75 mg Tablet 75 mg P
--- NOTE | 2019-08-03 14:35 | PC.NURSE ---
Notified Jorge of his father being discharged, Jorge said he would arrive to pickling solution maker his father before 5 o'clock today.
== END 2019-08-03 16:53 | disposition home health service (06) | DRG 312 ==
LOC: ANHED 20:16 → ANH3MEDSUR 08-02 08:42
PROVIDERS: Emergency Medicine Emergency Medical Services; Family Medicine; Admitting Provider Internal Medicine; Emergency Provider Emergency Medicine; PCP Internal Medicine; Visit Provider Family Medicine
DX: R55 Syncope and collapse (principal); N17.9 Acute kidney failure, unspecified; I13.0 Hypertensive heart and chronic kidney disease with heart failure and stage 1 through stage 4 chronic kidney disease, or unspecified chronic kidney disease; N18.4 Chronic kidney disease, stage 4 (severe); I42.9 Cardiomyopathy, unspecified; D63.1 Anemia in chronic kidney disease; I50.9 Heart failure, unspecified; D64.9 Anemia, unspecified; E86.0 Dehydration; R00.1 Bradycardia, unspecified; I48.91 Unspecified atrial fibrillation; S01.312A Laceration without foreign body of left ear, initial encounter; I25.10 Atherosclerotic heart disease of native coronary artery without angina pectoris; M47.817 Spondylosis without myelopathy or radiculopathy, lumbosacral region; G47.33 Obstructive sleep apnea (adult) (pediatric); M10.9 Gout, unspecified; E78.5 Hyperlipidemia, unspecified; E78.1 Pure hyperglyceridemia; G31.84 Mild cognitive impairment of uncertain or unknown etiology; Z66 Do not resuscitate; W19.XXXA Unspecified fall, initial encounter; Y93.E1 Activity, personal bathing and showering; Z79.01 Long term (current) use of anticoagulants; Z79.82 Long term (current) use of aspirin; Z79.899 Other long term (current) drug therapy; Z86.73 Personal history of transient ischemic attack (TIA), and cerebral infarction without residual deficits; Z87.891 Personal history of nicotine dependence
CPT/HCPCS: 12011; 36415; 51701; 70450; 71045; 72125; 74176; 80048; 80053; 80069; 81001; 83690; 83880; 84132; 84484; 85025; 85027; 85055; 85610; 85730; 93005; 96361; 96374; 97110; 97116; 97161; 97165; 97535; 99285; A9270; J7040; J7120

== ENCOUNTER 2019-09-14 12:26 | Outpatient (CLI) | payer MEDICARE, BC, SELFPAY ==
[2019-09-14 12:57] LABS: Hemoglobin A1C 4.7 % (<5.7)
[2019-09-14 12:59] LABS: Cholesterol 145 mg/dL (0-200); HDL Direct 70 mg/dL; Triglycerides 100 mg/dL (<150)
[2019-09-14 13:10] LABS: LDL Cholesterol Direct 45 mg/dL
[2019-09-18 12:02] LABS: Vitamin D 1,25 (OH)2 Total 20 pg/mL (18-72); Vitamin D2 1,25 (OH)2 <8 pg/mL; Vitamin D3 1,25 (OH)2 20 pg/mL
== END 2019-09-14 12:27 | disposition home or self-care (01) ==
PROVIDERS: PCP Internal Medicine; Visit Provider Internal Medicine
DX: E55.9 Vitamin D deficiency, unspecified (principal); Z79.899 Other long term (current) drug therapy; E78.5 Hyperlipidemia, unspecified
CPT/HCPCS: 36415; 80061; 82652; 83036; 84443

== ENCOUNTER 2020-03-13 10:45 | Outpatient (CLI) | payer MEDICARE, BC, SELFPAY ==
--- NOTE | ~2020-03-13 | US_ITS ---
EXAMINATION: US retroperitoneal duplex ltd EXAM DATE: 03/13/2020 12:02 INDICATION: Essential hypertension. TECHNIQUE: Multiple grayscale and Doppler images of the kidneys and renal arteries were obtained. T here is no prior study for comparison. FINDINGS: Hyperechoic renal parenchyma consistent with medical renal disease. The aorta peak systolic velocity is 56 cm/s. The right renal artery peak systolic velocity is 62 cm/s in the proximal segment, 38 cm/s in the mid segment, and 38 cm/s in the distal segment. The left steven al artery peak systolic velocity is 68 cm/s in the proximal segment, 91 cm/s in the mid segment, and 179 cm/s in the distal segment with a systolic/diastolic ratio of 6.6 which is elevated. IMPRESSION: Elevated distal left renal arterial systolic/diastolic ratio of 6.6, suggesting left dist al renal arterial stenosis. Other measurements are normal. Reviewed, dictated and finalized at location B. [employer]STRATIONS MAP INKER IMPRESSION: Elevated distal left renal arterial systolic/diastolic ratio of 6.6 , suggesting left distal renal arterial stenosis. Other measurements are normal .
== END 2020-03-13 10:46 | disposition home or self-care (01) ==
PROVIDERS: PCP Internal Medicine
DX: I10 Essential (primary) hypertension (principal)
CPT/HCPCS: 93976

== ENCOUNTER 2020-06-05 19:41 | Emergency (ER) | payer MEDICARE, BC, SELFPAY ==
--- NOTE | ~2020-06-05 | CT_ITS ---
EXAMINATION: CT facial bones wo con DATE: 06/05/2020 20:25 INDICATION: Head injury TECHNIQUE: Computed tomography (CT) of the facial bones and maxillofacial region was performed withou t intravenous contrast. The dose-length product (DLP) was 414.18 mGy-cm. Automated exposure control a nd iterative reconstruction technique were employed. COMPARISON: None. FINDINGS: There is a large right periorbital hematoma. No facial fracture is identified. The globes a re intact. There is a polyp or mucous retention cyst in the left maxillary sinus. The paranasal sinus es are otherwise well aerated. There is moderate to severe spondylosis of the visualized cervical spi ne. IMPRESSION: 1. Right periorbital hematoma without evidence of acute facial fracture. Reviewed, dictated and finalized at location A.
--- NOTE | ~2020-06-05 | CT_ITS ---
EXAMINATION: CT brain wo con INDICATION: Head injury COMPARISON: 07/31/2019 TECHNIQUE: Standard unenhanced head CT. The dose-length product (DLP) was 605.33 mGy-cm. The mA was a djusted according to patient size. Iterative reconstruction technique was employed. FINDINGS: There is right periorbital soft tissue swelling. There is no acute intraparenchymal hemorrh age. No evidence of mass lesion. No evidence of acute infarction. There are old infarcts of the basal ganglia. There is mild periventricular and subcortical hypodensity probably related to small vessel ischemic disease. There is moderate to severe prominence of the sulci and ventricles related to cereb ral atrophy. Intracranial calcified cerebral atherosclerosis is noted. There are no extra-axial colle ctions. There is no mass effect or midline shift. Changes in the globes are likely from ocular lens s urgery. The visualized sinuses and mastoid air cells are well aerated. IMPRESSION: 1. Right periorbital soft tissue swelling without acute intracranial abnormality. 2. Old infarcts of the basal ganglia. 3. Age related findings. Reviewed, dictated and finalized at location A. IMPRESSION: 1. Right periorbital soft tissue swelling without acute intracranial abnormalit y. 2. Old infarcts of the basal ganglia. 3. Age related findings.
[2020-06-05 19:46] VITALS: BP 222/100; PULSE 77; RESP 17; TEMP 37.1; O2SAT 98
--- NOTE | 2020-06-05 20:10 | ED.HEATRA ---
HPI - Head Injury General Chief complaint: Head Injury Stated complaint: glf with head on concrete- takes blood thinners Time Seen by Provider: 06/05/20 19:43 Source: patient Mode of arrival: ambulatory Limitations: no limitations History of Present Illness HPI Narrative: Patient is an 84-year-old male complaining of facial and head injury after he had a ground-level fall. Patient states that he was looking underneath his SUV, was on his knees and when he tried to get up suddenly he fell face first. Patient denies any symptoms prior to the fall. Patient states that he might have just lost his balance. Denies any syncopal episodes. Patient states that he was able to stand up and ambulate after the fall. Patient denies any neck, chest, abdomen, back, pelvis, hip or any extremity pain/injury. Related Data Home Medications Medication Instructions Recorded Confirmed Complete Multivitamin 1 tablet PO DAILY 08/01/19 04/05/20 calcitriol 0.25 mcg PO 3XW 08/01/19 04/05/20 niacinamide [Niacin (niacinamide)] 500 mg PO DAILY 08/01/19 04/05/20 omega 9-sma-qnv-fish oil [Fish Oil] 1 cap PO BID 08/01/19 04/05/20 tamsulosin 0.4 mg PO HS 08/01/19 04/05/20 aspirin 81 mg tablet,delayed 81 mg PO BID tablet 08/11/19 04/05/20 release diphenhydramine 25 2 tablet PO .COMPLEX PRN tablet 09/21/19 04/05/20 mg-acetaminophen 500 mg tablet hydralazine 06/05/20 Allergies Allergy/AdvReac Type Severity Reaction Status Date / Time No Known Allergies Allergy Unknown Verified 06/05/20 19:50 Review of Systems Review of Systems: All systems reviewed & are unremarkable except as noted in HPI and below Constitutional: Constitutional: Denies body ache(s), Denies chills, Denies excessive sweating, Denies fatigue, Denies fever(s), Denies headache(s), Denies lethargy, Denies malaise, Denies weakness and Denies weight loss Eyes: Eyes: Denies blurry vision, Denies change in vision and Denies loss of vision ENT: Denies dizziness, Denies ear discharge, Denies headache(s), Denies lip swelling, Denies epistaxis, Denies nasal congestion, Denies neck pain, Denies throat swelling and Denies tongue swelling Cardiovascular: Cardiovascular: Denies chest pain, Denies chest pain at rest, Denies chest pain with activity, Denies diaphoresis, Denies rapid heart rate, Denies edema, Denies irregular heart rhythm, Denies lightheadedness, Denies palpitations, Denies dyspnea and Denies dyspnea on exertion Respiratory: Respiratory: Denies chest congestion, Denies cough, Denies hemoptysis, Denies dyspnea and Denies dyspnea on exertion Gastrointestinal: Gastrointestinal: Denies abdominal pain, Denies melena, Denies hematochezia, Denies diarrhea, Denies nausea, Denies vomiting and Denies hematemesis Musculoskeletal: Musculoskeletal: Denies abnormal gait, Denies deformity, Denies joint swelling, Denies limited range of motion, Denies neck pain and Denies numbness Neurologic: Denies Abnormal speech present, Denies abnormal gait, Denies confusion, Denies dizziness, Denies headache(s), Denies focal weakness, Denies loss of vision, Denies numbness, Denies Other visual disturbances, Denies Sensory deficit (Neuro) and Denies weakness Psychiatric: Psychiatric: Denies confusion, Denies depression, Denies auditory hallucinations, Denies homicidal ideation and Denies suicidal ideation Endocrine: Endocrine: Denies cold intolerance, Denies excessive sweating, Denies fatigue, Denies heat intolerance and Denies palpitations Hematologic/Lymphatic: Hematologic/Lymphatic: Denies easy bleeding and Denies easy bruising Allergic/Immunologic: Allergic/Immunologic: Denies lip swelling, Denies throat swelling and Denies tongue swelling PMFSH Past Medical History Medical History A-fib Chronic anticoagulation with Eliquis Adult BMI 19-24 kg/sq m Anxiety Arthritis knees Burst fracture of lumbar vertebra with routine healing Chronic anemia Chronic
[2020-06-05 20:39] VITALS: BP 197/106; PULSE 78; RESP 18; O2SAT 98
[2020-06-05 20:46] VITALS: BP 184/97; PULSE 82; RESP 16; O2SAT 98
[2020-06-05 20:52] LABS: Basophils Percent Auto 0.4 % (0.2-1.2); Eosinophils Absolute Auto 0.2 K/mm3 (0-0.3); Eosinophils Percent Auto 3.3 % (0-4.4); Hematocrit 29.2 % (42.0-52.0); Hemoglobin 9.4 g/dL (14.0-18.0); Immature Granulocyte Absolute 0.05 K/mm3 (0.00-0.031); Immature Granulocyte Percent A 0.7 % (0-0.5); Lymphocytes Absolute Auto 0.95 K/mm3 (0.9-3.2); Lymphocytes Percent Auto 13.5 % (18.3-44.2); Mean Corpuscular HGB Conc 32.2 g/dl (32-36); Mean Corpuscular Hemoglobin 31.4 pg (26-34); Mean Corpuscular Volume 97.7 fl (80-100); Mean Platelet Volume 10.7 fl (7.4-10.4); Monocytes Percent Auto 13.6 % (2.6-8.5); Neutrophils Absolute Auto 4.8 K/mm3 (1.3-6.7); Neutrophils Percent Auto 68.5 % (45.5-73.1); Platelet Count Result 142 k/mm3 (150-375); Red Blood Count 2.99 M/mm3 (4.6-6.20); Red Cell Distribution Width 13.3 % (11.5-14.5); White Blood Count 7.1 K/mm3 (4.5-10.0)
[2020-06-05 21:04] LABS: Anion Gap 11 mmol/L (8-16); Blood Urea Nitrogen 66 mg/dL (9-20); Calcium 8.9 mg/dL (8.4-10.2); Carbon Dioxide 21 mmol/L (22-30); Chloride 105 mmol/L (98-107); Estimated CRCL calculation 11 ml/min; Estimated Glomerular Filt Rate 12; Glucose 144 mg/dL (75-110); Potassium 4.1 mmol/L (3.4-5.0); Sodium 137 mmol/L (137-145)
[2020-06-05 21:08] LABS: INR 1.2; Prothrombin Time 15.4 Seconds (11.1-14.7)
[2020-06-05 21:09] LABS: Partial Thromboplastin Time 32.5 SECONDS (22.3-36.8)
--- NOTE | 2020-06-05 21:15 | ECG_ITS ---
Measurements Intervals [place] Rate: 80 P: 70 WV: 202 QRS: -11 QRSD: 138 T: 3 QT: 414 QTc: 479 Interpretive Statements SINUS RHYTHM VENTRICULAR BIGEMINY RIGHT BUNDLE BRANCH BLOCK BASELINE ARTIFACT- I, II, III, V4-V6 ABNORMAL ECG Electronically Signed On 06-07-2020 13:10:14 CDT by Jaime Ca D.O.
[2020-06-05 22:05] VITALS: BP 199/69; PULSE 80; RESP 20; O2SAT 97
[2020-06-05] MEDS: TETANUS,DIPHTHERIA,AC PERTUSSIS ADULT (0.5 ML) BOOSTRIX IM (22:06)
[2020-06-05 22:52] VITALS: BP 189/91; PULSE 90; RESP 20; O2SAT 98
== END 2020-06-05 22:55 | disposition home or self-care (01) ==
PROVIDERS: Emergency Provider Emergency Medicine; PCP Internal Medicine
DX: S05.11XA Contusion of eyeball and orbital tissues, right eye, initial encounter (principal); W18.30XA Fall on same level, unspecified, initial encounter; S09.90XA Unspecified injury of head, initial encounter; I10 Essential (primary) hypertension; Z23 Encounter for immunization; Z87.891 Personal history of nicotine dependence; I48.91 Unspecified atrial fibrillation; Z79.01 Long term (current) use of anticoagulants; F41.9 Anxiety disorder, unspecified; M17.0 Bilateral primary osteoarthritis of knee; I13.2 Hypertensive heart and chronic kidney disease with heart failure and with stage 5 chronic kidney disease, or end stage renal disease; N18.5 Chronic kidney disease, stage 5; I50.9 Heart failure, unspecified; Z86.73 Personal history of transient ischemic attack (TIA), and cerebral infarction without residual deficits; M47.817 Spondylosis without myelopathy or radiculopathy, lumbosacral region; M10.9 Gout, unspecified; E78.00 Pure hypercholesterolemia, unspecified; D50.9 Iron deficiency anemia, unspecified; G47.33 Obstructive sleep apnea (adult) (pediatric); Z79.82 Long term (current) use of aspirin
CPT/HCPCS: 36415; 70450; 70486; 80048; 85025; 85610; 85730; 90471; 90715; 93005; 99284

== ENCOUNTER 2020-08-23 14:53 | Outpatient (CLI) | payer MEDICARE, BC, SELFPAY ==
[2020-08-23 15:27] LABS: Basophils Percent Auto 0.6 % (0.2-1.2); Eosinophils Absolute Auto 0.2 K/mm3 (0-0.3); Eosinophils Percent Auto 2.8 % (0-4.4); Hematocrit 26.2 % (42.0-52.0); Immature Granulocyte Absolute 0.03 K/mm3 (0.00-0.031); Immature Granulocyte Percent A 0.4 % (0-0.5); Lymphocytes Absolute Auto 0.76 K/mm3 (0.9-3.2); Lymphocytes Percent Auto 11.1 % (18.3-44.2); Mean Corpuscular HGB Conc 30.5 g/dl (32-36); Mean Corpuscular Hemoglobin 30.1 pg (26-34); Mean Corpuscular Volume 98.5 fl (80-100); Mean Platelet Volume 10.1 fl (7.4-10.4); Monocytes Absolute Auto 0.8 K/mm3 (0.1-0.6); Monocytes Percent Auto 11.6 % (2.6-8.5); Neutrophils Absolute Auto 5.1 K/mm3 (1.3-6.7); Neutrophils Percent Auto 73.5 % (45.5-73.1); Platelet Count Result 170 k/mm3 (150-375); Red Blood Count 2.66 M/mm3 (4.6-6.20); Red Cell Distribution Width 14.6 % (11.5-14.5); White Blood Count 6.9 K/mm3 (4.5-10.0)
[2020-08-23 15:30] LABS: Alanine Aminotransferase 15 U/L (4-50); Albumin Level 4.1 g/dL (3.5-5.1); Alkaline Phosphatase 58 U/L (38-126); Anion Gap 12 mmol/L (8-16); Aspartate Amino Transferase 29 U/L (17-59); Bilirubin,Total 0.3 mg/dL (0.2-1.3); Blood Urea Nitrogen 82 mg/dL (9-20); Calcium 8.8 mg/dL (8.4-10.2); Carbon Dioxide 23 mmol/L (22-30); Chloride 103 mmol/L (98-107); Cholesterol 153 mg/dL (0-200); Estimated Glomerular Filt Rate 6; Glucose 116 mg/dL (75-110); HDL Direct 46 mg/dL; Potassium 4.4 mmol/L (3.4-5.0); Sodium 138 mmol/L (137-145); Triglycerides 197 mg/dL (<150)
[2020-08-23 15:36] LABS: Hemoglobin A1C 4.6 % (<5.7)
[2020-08-23 15:41] LABS: LDL Cholesterol Direct 52 mg/dL
[2020-08-23 16:44] LABS: Free T4 Free Thyroxine 0.75 ng/mL (0.78-2.19)
== END 2020-08-23 14:54 | disposition home or self-care (01) ==
LOC: ANHLAB 14:59
PROVIDERS: PCP Internal Medicine; Visit Provider Internal Medicine
DX: E78.5 Hyperlipidemia, unspecified (principal); I10 Essential (primary) hypertension; Z79.899 Other long term (current) drug therapy
CPT/HCPCS: 36415; 80053; 80061; 83036; 84439; 84443; 85025

== ENCOUNTER 2021-12-06 13:00 | Outpatient (NON) | payer MEDICARE, BC, SELFPAY | END 2021-12-06 13:01 | disposition home or self-care (01) | LOC: ANHLAB 12-07 08:29 | PROVIDERS: PCP Internal Medicine; Visit Provider Nurse Practitioner | DX: L57.0 Actinic keratosis (principal) | CPT/HCPCS: 88305 ==

== ENCOUNTER 2022-01-11 16:06 | Observation (INO) | payer MEDICARE, BC, SELFPAY ==
[2022-01-11] VITALS (38 sets, daily range): BP systolic 119–154; BP diastolic 67–96; PULSE 71–91; RESP 12–24; TEMP 36.1–36.4; O2SAT 90–100; BMI 22.0
--- NOTE | ~2022-01-11 | XR_ITS ---
EXAMINATION: XR chest 2V DATE: 01/11/2022 16:48 INDICATION: Chest pain. TECHNIQUE: Frontal and lateral views of the chest were obtained. COMPARISON: Chest single view 07/31/2019 FINDINGS: There is mild atelectasis in the lower lung zones. No pleural effusion or pneumothorax. The heart size is normal. There is a suture anchor in right humeral head. A vascular stent overlies left shoulder. IMPRESSION: 1. Mild atelectasis in the lower lung zones. Reviewed, dictated and finalized at location A. [employer]
--- NOTE | 2022-01-11 16:12 | ECG_ITS ---
Measurements Intervals [place] Rate: 93 P: 1 WV: 164 QRS: 0 QRSD: 130 T: 21 QT: 399 QTc: 497 Interpretive Statements SINUS RHYTHM FREQUENT VENTRICULAR PREMATURE COMPLEXES RIGHT BUNDLE BRANCH BLOCK BASELINE ARTIFACT- II, III, AVR, AVF ABNORMAL ECG COMPARED TO ECG 06/05/2020 21:15:38 NO SIGNIFICANT CHANGES Electronically Signed On 01-11-2022 16:26:45 [employer]AD [employer] DEVELOPER by Jaime Ca D.O.
--- NOTE | 2022-01-11 16:32 | ED.GENADULT ---
HPI - General Adult General Chief complaint: Arrhythmia/Palpitations <Terrence Hassan MD - Last Filed: 01/11/22 20:02> Stated complaint: A-Fib <Terrence Hassan MD - Last Filed: 01/11/22 20:02> Time Seen by Provider: 01/11/22 16:20 <Terrence Hassan MD - Last Filed: 01/11/22 20:02> History of Present Illness HPI narrative: This is an 86-year-old male with past medical history of end-stage renal disease on dialysis MWF (most recent dialysis today) A. fib, hypertension and squamous cell carcinoma of the face, who presents emergency department complaining of generalized malaise and weakness for the past week. He is not sure of the origin or cause. He states his Eliquis was held for an upcoming dermatology surgery about 1 week ago. He states 2 days ago he was walking from his shower when he felt. He states he struck his left chest but did not hit his head and did not lose consciousness. He complains of soreness in the area, described as 3 out of 10, not radiating and not aggravated with exertion. He has no other complaints today. <Terrence Hassan MD - Last Filed: 01/11/22 20:02> Related Data Home medications: Home Medications Medication Instructions Recorded Confirmed niacinamide 500 mg tablet (Niacin 500 mg PO DAILY 08/01/19 12/05/21 (niacinamide)) omega 3-ctk-ayt-fish oil 1,000 mg 1 cap PO BID 08/01/19 12/05/21 (120 mg-180 mg) capsule (Fish Oil) diphenhydramine 25 2 tablet PO .COMPLEX PRN Insomnia 09/21/19 12/05/21 mg-acetaminophen 500 mg tablet (Tylenol PM Extra Strength) hydralazine 50 mg tablet 06/05/20 12/05/21 apixaban 2.5 mg tablet (Eliquis) 2.5 mg PO BID 11/01/20 12/05/21 vitamin B comp no.3-folic acid 1 1 tablet PO DAILY 11/01/20 12/05/21 mg-vit C 60 mg-biotin 300 mcg tablet ([facility]) carvedilol 3.125 mg tablet 3.125 mg PO Q12H 01/01/21 12/05/21 sevelamer carbonate 0.8 gram oral 0.8 g PO TID 05/17/21 12/05/21 powder packet <Terrence Hassan MD - Last Filed: 01/11/22 20:02> Allergies/adverse reactions: Allergies Allergy/AdvReac Type Severity Reaction Status Date / Time No Known Allergies Allergy Unknown Verified 05/17/21 13:11 <Terrence Hassan MD - Last Filed: 01/11/22 20:02> Review of Systems Review of Systems: CONSTITUTIONAL: Denies fever, chills, or sweats. EYES: Denies visual changes, redness, or discharge. ENT: Denies rhinorrhea, congestion, sore throat, or otalgia. CARDIOVASCULAR: Left chest wall pain denies palpitations, or edema. RESPIRATORY: Denies cough or dyspnea. GASTROINTESTINAL: Denies abdominal pain, nausea, vomiting, or diarrhea. GENITOURINARY: Denies dysuria or hematuria. SKIN: Denies rash or itching. MUSCULOSKELETAL: Denies back pain, joint pain, or myalgia. NEUROLOGIC: Generalized weakness denies headache, numbness, dizziness PSYCHIATRIC: Denies anxiety or depression. <Terrence Hassan MD - Last Filed: 01/11/22 20:02> [facility] Past Medical History Medical History: Medical History A-fib Chronic anticoagulation with Eliquis Adult BMI 19-24 kg/sq m Allergic sinusitis Anxiety Arthritis knees BMI 23.0-23.9, adult Burst fracture of lumbar vertebra with routine healing Chronic anemia Chronic congestive heart failure With echocardiogram January 2019: Mild mitral valve regurgitation, [id number] tricuspid valve regurgitation, left ventricular systolic function moderate to severely reduced with EF of 35-40, mild pulmonary hypertension with RVSP of 40-45 Chronic kidney disease Stage IV CVA (cerebral vascular accident) Old lacunar infarcts at the fidel, left thalamus and right basal ganglia DJD (degenerative joint disease), lumbosacral Ecchymosis Encounter for routine adult health examination without abnormal findings ESRD on dialysis Essential (primary) hypertension Essential hypertension Fall Follow up Generalized muscle weakness Gout
[2022-01-11 17:34] LABS: Basophils Percent Auto 0.4 % (0.2-1.2); Eosinophils Absolute Auto 0.1 K/mm3 (0-0.3); Eosinophils Percent Auto 1.4 % (0-4.4); Hematocrit 35.8 % (42.0-52.0); Hemoglobin 11.6 g/dL (14.0-18.0); Immature Granulocyte Absolute 0.03 K/mm3 (0.00-0.031); Immature Granulocyte Percent A 0.4 % (0-0.5); Lymphocytes Absolute Auto 0.84 K/mm3 (0.9-3.2); Lymphocytes Percent Auto 11.9 % (18.3-44.2); Mean Corpuscular HGB Conc 32.4 g/dl (32-36); Mean Corpuscular Hemoglobin 32.5 pg (26-34); Mean Corpuscular Volume 100.3 fl (80-100); Mean Platelet Volume 10.3 fl (7.4-10.4); Monocytes Absolute Auto 1.3 K/mm3 (0.1-0.6); Monocytes Percent Auto 17.9 % (2.6-8.5); Neutrophils Absolute Auto 4.8 K/mm3 (1.3-6.7); Platelet Count Result 155 k/mm3 (150-375); Red Blood Count 3.57 M/mm3 (4.6-6.20); Red Cell Distribution Width 13.1 % (11.5-14.5)
[2022-01-11 17:46] LABS: Alanine Aminotransferase 17 U/L (6-50); Albumin Level 4.5 g/dL (3.5-5.1); Alkaline Phosphatase 96 U/L (38-126); Anion Gap 11 mmol/L (8-16); Aspartate Amino Transferase 31 U/L (17-59); Bilirubin,Total 0.5 mg/dL (0.2-1.3); Blood Urea Nitrogen 21 mg/dL (9-20); Calcium 8.8 mg/dL (8.4-10.2); Carbon Dioxide 37 mmol/L (22-30); Chloride 91 mmol/L (98-107); Estimated CRCL calculation 13 ml/min; Estimated Glomerular Filt Rate 15; Glucose 114 mg/dL (65-110); Potassium 3.4 mmol/L (3.4-5.0); Sodium 139 mmol/L (137-145)
[2022-01-11 18:11] LABS: Influenza A QL RT-PCR Negative (Negative); Influenza B QL RT-PCR Negative (Negative); SARS-CoV-2 RNA PCR Negative
[2022-01-11 19:01] LABS: NT Pro B Type Natriuretic Pept 2110 pg/mL (5-100); Troponin I 0.042 ng/mL (0.000-0.034)
[2022-01-11 19:10] LABS: Appearance Urine Clear (Clear); Bilirubin Urine 1+ (Negative); Blood Urine Negative (Negative); Color Urine Yellow (Yellow); Glucose Urine UA Negative (Negative); Ketones Urine Trace mg/dL (Negative); Leukocyte Esterase Ur Negative LEU/UL (Negative); Nitrate Urine Negative (Negative); Protein Urine 3+ mg/dL (Negative); Specific Grav Ur 1.015 (1.001-1.035); Urobilinogen Urine 0.2 mg/dL (<2.0); pH Urine 8.5 (5.0-9.0)
--- NOTE | 2022-01-11 19:11 | PC.NURSE ---
Report received from PILAR Nguyen. Assumed care of patient at this time.
[2022-01-11 19:20] LABS: Mucus Urine Rare /lpf; RBC Urine 0-2 /hpf (0-2); WBC Urine 0-3 /hpf
[2022-01-11 19:24] LABS: Add Urine Microscopic? YES
[2022-01-11 20:41] LABS: Troponin I 0.088 ng/mL (0.000-0.034)
[2022-01-11] MEDS: APIXABAN 2.5 MG TABLET PO (22:23)
[2022-01-12] VITALS (11 sets, daily range): BP systolic 133–181; BP diastolic 67–76; PULSE 67–89; RESP 18–20; TEMP 36.2–36.8; O2SAT 98–100; BMI 22.0
--- NOTE | 2022-01-12 00:05 | PC.NURSE ---
This patient, Jose Roberto Gregorio, was admitted to IMU Room 205-02 on 01/11/22 at 2340. Patient/family oriented to hospital policies and general routines including ID bracelet, bed and alarms, visiting hours, pain management, procedures, bathroom and other care routines, personal items, smoking policy, room service/diet, and visiting hours. Information on how to activate the Rapid Response Team has been discussed. Patient/Family are encouraged to report perceived risks to care and to ask questions if they do not understand what they are told or what they should do.
[2022-01-12 01:02] LABS: Troponin I 0.127 ng/mL (0.000-0.034)
--- NOTE | 2022-01-12 01:05 | PM.IMHP ---
H&P: HPI History of Present Illness Date/Time: 01/12/22 01:05 Chief Complaint: Generalized weakness Narrative: 86-year-old male with a past medical history paroxysmal atrial fibrillation on chronic anticoagulation, end-stage renal disease on hemodialysis, and essential hypertension who presented to the ER due to generalized weakness and palpitations. Patient reported that 2 days ago he lost his balance while he was in the shower and fell striking the side of his chest. He denies any chest pain at the time of my evaluation. He did not hit his head or lose consciousness. He complained of soreness in the area to the ER physician but denies any pain at the time of my evaluation. He had actually not mention the fall to me at all. He denies having any generalized weakness at the time of my evaluation. He simply stated that while he was in dialysis he was told that he winded to a episode of AFib in that he needed to come to the ER for evaluation. He did complete his dialysis treatment today prior to coming to the hospital. The he has been off of his Eliquis since the as he was anticipating having skin cancer resected from his right cheek On the . He reports that he has been compliant with his antihypertensive medications. He has not noticed any increased swelling, orthopnea or shortness of breath. He reports that he generally tolerates dialysis well. He has been on dialysis for the last year. He denies any significant pain. He still makes a small amount of urine a couple of times a day. The patient is followed by Dr. Salinas as outpatient. In the ER the patient's troponins were noted to be minimally bumped and repeat troponin had continued to increase with his 3rd troponin also trending upward. He is not having any current symptoms. The patient was thus admitted to IMU for monitoring. Cardiology was consulted from the ER. although the patient is alert orient x3 he seems to have some difficulty recalling the specific details that brought him to the ER. Upon review of past medical history of patient has been having some progressive onset of memory impairment. Likely the patient has some mild dementia developing. The HPI was a combination of patient report and review of ER records. Review of Systems Review of Systems: 12 systems were reviewed with pertinent positives and negatives per HPI. Except as documented in the HPI, all other systems were reviewed and are negative. [facility] Past Medical History Medical History (Updated 01/12/22 @ 05:12 by July Arboleda DO) A-fib Chronic anticoagulation with Eliquis Adult BMI 19-24 kg/sq m Allergic sinusitis Anxiety Arthritis knees BPH (benign prostatic hyperplasia) Burst fracture of lumbar vertebra with routine healing Chronic anemia Chronic congestive heart failure With echocardiogram January 2019: Mild mitral valve regurgitation, [id number] tricuspid valve regurgitation, left ventricular systolic function moderate to severely reduced with EF of 35-40, mild pulmonary hypertension with RVSP of 40-45 CVA (cerebral vascular accident) 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 On group home drug therapy Orthostatic hypotension Puncture wound Vitamin D deficiency Surgical History Surgical History (Updated 01/12/22 @ 05:12 by July Arboleda DO) History of cataract surgery Bilateral cataract removal History of ethmoidectomy With bilateral maxillary antrostomy 2009 History of skin graft To left foot After an accident at work. Status post creation of arteriovenous fistula left upper arm Family History Family History (Reviewed 1
[2022-01-12 05:29] LABS: Hematocrit 32.9 % (42.0-52.0); Hemoglobin 10.9 g/dL (14.0-18.0); Immature Platelet Fraction Pct 3.9 % (0.9-11.2); Mean Corpuscular HGB Conc 33.1 g/dl (32-36); Mean Corpuscular Hemoglobin 32.5 pg (26-34); Mean Corpuscular Volume 98.2 fl (80-100); Mean Platelet Volume 10.1 fl (7.4-10.4); Platelet Count Result 136 k/mm3 (150-375); Red Blood Count 3.35 M/mm3 (4.6-6.20); White Blood Count 6.9 K/mm3 (4.5-10.0)
[2022-01-12 05:42] LABS: Anion Gap 14 mmol/L (8-16); Blood Urea Nitrogen 29 mg/dL (9-20); Calcium 8.4 mg/dL (8.4-10.2); Carbon Dioxide 34 mmol/L (22-30); Chloride 91 mmol/L (98-107); Estimated CRCL calculation 10 ml/min; Estimated Glomerular Filt Rate 12; Glucose 89 mg/dL (65-110); Potassium 3.2 mmol/L (3.4-5.0); Sodium 139 mmol/L (137-145)
[2022-01-12 05:55] LABS: Troponin I 0.119 ng/mL (0.000-0.034)
--- NOTE | 2022-01-12 08:13 | PM.CNCAR ---
Assessment and Plan Assessment and plan (1) Elevated troponin: Code(s): R77.8 - Other specified abnormalities of plasma proteins Status: Acute Plan This is an 86-year-old man with a history of hypertension end-stage renal disease and a reported history of paroxysmal atrial fibrillation. He apparently was in dialysis yesterday was felt to have had an episode of atrial fibrillation. I do not have any documentation of that on the chart. In the emergency room he was asymptomatic and in sinus rhythm. His troponin levels are modestly elevated there is no chest pain or other evidence of an acute coronary syndrome. It was my impression last night that he probably did not have to be admitted only because of his elevated troponin since he also has end-stage renal disease explaining these sort of med modestly elevated troponin level. The staff obviously still admitted him overnight for observation. He is asymptomatic this morning remains in sinus rhythm and in my opinion is stable enough for discharge. Even if he did have an episode of self-limited asymptomatic atrial fibrillation during dialysis that is not of enough concern in a man with a history of this to warrant recurrent hospitalization. If you have any specific other questions cardiac guzmán let me know otherwise I will sign off of his case at this time. Chan Mcneil MD [facility] History of Present Illness History of Present Illness Consult date/time: 01/12/22 08:13 Reason For Visit: Elevated troponin,generalized weakness Narrative: This is an 86-year-old man I am seeing at the request of the hospitalist he was seen in the emergency room last night at the advice of the team and has dialysis clinic because of atrial fibrillation. The patient is unknown to me prior to this encounter he feels well this morning and has no complaints. According to the ER called me a last night about this situation he was advised to come to the emergency room because of atrial fibrillation that was noticed while he was being dialyzed. According to the chart and the patient he has a history of atrial fibrillation and follows with a health plan specialist elsewhere as well as his PCP, Dr. Stringer. He says he has a history of hypertensive renal disease and has been on dialysis chronically. His dialysis schedule I believe is Friday. He was being dialyzed yesterday and was tolerating it well he does not remember feeling poorly or having any significant symptoms specifically he denies any awareness of palpitations or irregularity of his pulse. Upon arrival here he was in sinus rhythm with right bundle branch block which is chronic on his ECG there was no evidence of atrial fibrillation. For some reason troponin levels were sampled and they were slightly elevated prompting the decision to put him in the hospital for observation. He takes apixaban 2.5 mg b.i.d. at a reduced dosage for his anticoagulation he also takes hydralazine a low dose of carvedilol. Once again this morning he is appears to be comfortable in IMU room 205 offers no significant complaints. His troponin levels have varied between 0.04 and 0.1. Review of Systems Constitutional: Constitutional: Reports lethargy Eyes: Eyes: Reports no additional eye complaints ENT: Reports system reviewed and no additional complaints, except as documented Cardiovascular: Cardiovascular: Reports no additional cardiovascular complaints Respiratory: Respiratory: Reports no additional respiratory complaints Gastrointestinal: Gastrointestinal: Reports no additional gastrointestinal complaints Musculoskeletal: Musculoskeletal: Reports arthralgias Integumentary/Breasts: Skin/Breast: Reports system reviewed and no additional complaints, except as docu Neurologic: Reports system reviewed and no additional complaints, except as documented Endocrine: Endocrine: Reports no additional endocrine complaints Hematologic/Lymphatic: Hematologic/Lymphatic: Rep
[2022-01-12] MEDS: ATORVASTATIN 40 MG TABLET PO (08:33)
[2022-01-12] MEDS: allopurinoL 150 MG TABLET BY MOUTH (08:33)
[2022-01-12] MEDS: SEVELAMER CARBONATE 800 MG TABLET PO ×2 (08:33→12:28)
[2022-01-12] MEDS: APIXABAN 2.5 MG TABLET PO (08:33)
[2022-01-12] MEDS: NIACIN SA 500 MG TABLET PO (08:34)
[2022-01-12] MEDS: OMEGA 3 POLYUNSAT FATTY ACIDS 1 GM CAP PO (08:34)
[2022-01-12] MEDS: MONTELUKAST SODIUM 10 MG TABLET BY MOUTH (08:34)
[2022-01-12] MEDS: VENLAFAXINE HCL 75 MG TABLET BY MOUTH (08:35)
[2022-01-12] MEDS: VITAMIN B CMPLX/VIT C/FOLIC AC 1 CAPSULE 1 CAP PO (08:35)
[2022-01-12] MEDS: hydrALAZINE HCL 50 MG TABLET PO (09:52)
[2022-01-12] MEDS: carvediloL 3.125 MG TABLET PO (09:52)
--- NOTE | 2022-01-12 11:50 | PM.DS ---
DS: Admitting Diagnosis Discharge Date January 12, 2022 Admitting Diagnosis Palpitations DS: Discharge Diagnosis Discharge Diagnosis (1) Elevated troponin: Code(s): R77.8 - Other specified abnormalities of plasma proteins Status: Acute Assessment and Plan: Possibly due to episode of AFib RVR but patient is now in sinus rhythm and has been since he arrived to the ER. Troponins are gradually climbing but he is not having any chest pain or other cardiac symptoms. Cardiology has been consulted. Will repeat troponin this a.m.. The patient has not had any rhythm issues on telemetry overnight. The patient's home Eliquis has been resumed. (2) Generalized weakness: Code(s): R53.1 - Weakness Status: Acute Assessment and Plan: When referring to the patient's outpatient notes seems the patient has had multiple episodes of generalized weakness. This is likely due to his age and the fact that he has been on hemodialysis. Patient may benefit from PT OT evaluation. (3) ESRD on dialysis: Code(s): N18.6 - End stage renal disease; Z99.2 - Dependence on renal dialysis Status: Acute Assessment and Plan: The patient receives hemodialysis Friday. I do not anticipate the patient needing dialysis early. Nephrology was consulted from the ER. DS: Summary Hospital Course Hospital Course: 86-year-old male with a past medical history paroxysmal atrial fibrillation on chronic anticoagulation, end-stage renal disease on hemodialysis, and essential hypertension who presented to the ER due to generalized weakness and palpitations.? Patient reported that 2 days ago he lost his balance while he was in the shower and fell striking the side of his chest.? He denies any chest pain at the time of my evaluation.? He did not hit his head or lose consciousness.? He complained of soreness in the area to the ER physician but denies any pain at the time of my evaluation.? He had actually not mention the fall to me at all.? He denies having any generalized weakness at the time of my evaluation.? He simply stated that while he was in dialysis he was told that he winded to a episode of AFib in that he needed to come to the ER for evaluation.? He did complete his dialysis treatment today prior to coming to the hospital.? The he has been off of his Eliquis since the as he was anticipating having skin cancer resected from his right cheek? On the .? He reports that he has been compliant with his antihypertensive medications.? He has not noticed any increased swelling, orthopnea or shortness of breath.? He reports that he generally tolerates dialysis well.? He has been on dialysis for the last year.? He denies any significant pain.? He still makes a small amount of urine a couple of times a day.? The patient is followed by Dr. Salinas as outpatient.? In the ER the patient's troponins were noted to be minimally bumped and repeat troponin had continued to increase with his 3rd troponin also trending upward.? He is not having any current symptoms.? The patient was thus admitted to IMU for monitoring.? Cardiology was consulted from the ER. Although the patient is alert orient x3 he seems to have some difficulty recalling the specific details that brought him to the ER. ? Upon review of past medical history of patient has been having some progressive onset of memory impairment.? Likely the patient has some mild dementia developing.? Cardiology was consulted and deemed patient stable for discharge. All symptoms resolved and patient was discharged in stable condition with outpatient follow-up. Time Spent with Patient Time attestation: Total time spent providing and/or coordinating discharge services: Exam Narrative: General: No acute distress, alert and oriented per baseline HEENT: Atraumatic, normocephalic, mucous membranes moist CV: Regular rate and rhythm, S1, S2 Lungs: Clear to auscultation
== END 2022-01-12 15:13 | disposition home health service (06) ==
LOC: ANHED 21:52 → ANHIMU 23:07
PROVIDERS: Emergency Medicine; Admitting Provider Internal Medicine; Emergency Provider Preventive Medicine Aerospace Medicine; PCP Internal Medicine; Visit Provider Student in an Organized Health Care Education/Training Program
DX: R77.8 Other specified abnormalities of plasma proteins (principal); R53.1 Weakness; I13.2 Hypertensive heart and chronic kidney disease with heart failure and with stage 5 chronic kidney disease, or end stage renal disease; I50.9 Heart failure, unspecified; N18.6 End stage renal disease; I48.91 Unspecified atrial fibrillation; I48.0 Paroxysmal atrial fibrillation; Z99.2 Dependence on renal dialysis; D63.8 Anemia in other chronic diseases classified elsewhere; C76.0 Malignant neoplasm of head, face and neck; R53.81 Other malaise; R00.2 Palpitations; M47.817 Spondylosis without myelopathy or radiculopathy, lumbosacral region; R94.31 Abnormal electrocardiogram [ECG] [EKG]; J98.11 Atelectasis; Z20.822 Contact with and (suspected) exposure to COVID-19; R41.9 Unspecified symptoms and signs involving cognitive functions and awareness; N40.0 Benign prostatic hyperplasia without lower urinary tract symptoms; E78.00 Pure hypercholesterolemia, unspecified; E78.1 Pure hyperglyceridemia; G47.30 Sleep apnea, unspecified; Z87.891 Personal history of nicotine dependence; Z86.73 Personal history of transient ischemic attack (TIA), and cerebral infarction without residual deficits; Z79.01 Long term (current) use of anticoagulants; Z79.1 Long term (current) use of non-steroidal anti-inflammatories (NSAID); Z79.891 Long term (current) use of opiate analgesic; Z82.49 Family history of ischemic heart disease and other diseases of the circulatory system
CPT/HCPCS: 36415; 51701; 71046; 80048; 80053; 81001; 83735; 83880; 84484; 85025; 85027; 85055; 87502; 93005; 97161; 97165; 99285; A9270; G0378; U0003; U0005

== ENCOUNTER 2022-02-19 04:34 | Inpatient (IN) | payer MEDICARE, BC, SELFPAY ==
[2022-02-19] VITALS (38 sets, daily range): BP systolic 91–173; BP diastolic 51–106; PULSE 86–143; RESP 16–51; TEMP 36–38.2; O2SAT 95–100; BMI 22.4
--- NOTE | ~2022-02-19 | XR_ITS ---
Portable chest x-ray Comparison: 03/02/2022 Clinical History: Shortness of breath Findings: Small left pleural effusion is present. There is mild bibasilar pulmonary edema with proba ble left basilar atelectasis. Cardiomediastinal silhouette is stable. Bones and soft tissues are unr emarkable. Impression: Small left pleural effusion with mild bibasilar pulmonary edema and left basilar atelectatic change. Reviewed, dictated and finalized at location M. [facility] Impression: Small left pleural effusion with mild bibasilar pulmonary edema and left basila r atelectatic change.
--- NOTE | ~2022-02-19 | XR_ITS ---
Portable chest x-ray Comparison: 02/27/2022 Clinical History: Shortness of breath Findings: Small bilateral pleural effusions are present with mild pulmonary edema pattern and probab le left basilar atelectasis. Cardiomediastinal silhouette is stable. Bones and soft tissues are unre markable. Impression: Mild pulmonary edema pattern with small bilateral pleural effusions and left basilar atelectatic friedman ge. Reviewed, dictated and finalized at location . ENTINE DISTILLER Impression: Mild pulmonary edema pattern with small bilateral pleural effusions and left ba silar atelectatic change.
--- NOTE | ~2022-02-19 | CT_ITS ---
EXAMINATION: CT brain wo con INDICATION: Altered mental status COMPARISON: 06/05/2020 TECHNIQUE: Standard unenhanced head CT. The dose-length product (DLP) was 605.33 mGy-cm. The mA was a djusted according to patient size. Iterative reconstruction technique was employed. FINDINGS: There is no acute intraparenchymal hemorrhage. No evidence of mass lesion. No evidence of a cute infarction. There are old infarcts of the right basal ganglia and thalami, new on the right sinc e the comparison. There is mild periventricular and subcortical hypodensity probably related to small vessel ischemic disease. There is moderate to severe prominence of the sulci and ventricles related to cerebral atrophy. Intracranial calcified cerebral atherosclerosis is noted. There are no extra-axi al collections. There is no mass effect or midline shift. Changes in the globes are likely from ocula r lens surgery. There is partial opacification of the left maxillary sinus. IMPRESSION: 1. 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 2. Age related findings. Reviewed, dictated and finalized at location B. UTIVE STAFF ASSISTANT IMPRESSION: 1. 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 2. Age related findings.
--- NOTE | ~2022-02-19 | XR_ITS ---
EXAMINATION: XR chest 1V portable DATE: 02/19/2022 06:13 INDICATION: Shortness of breath. TECHNIQUE: A single frontal view of the chest was obtained. COMPARISON: Chest 2 views 01/11/2022, CT abdomen and pelvis 07/31/2019 FINDINGS: There are airspace opacities in all lung zones bilaterally, worst in the mid and lower lung zones. There is a small left pleural effusion. No pneumothorax. The heart size is normal. There is a vascular stent in left upper chest. IMPRESSION: 1. Diffuse lung disease, consistent with pulmonary edema versus pneumonia. 2. Small left pleural effusion. Reviewed, dictated and finalized at location A. STENCILER
--- NOTE | ~2022-02-19 | XR_ITS ---
EXAMINATION: XR chest 1V portable DATE: 03/02/2022 06:37 INDICATION: Shortness of breath. TECHNIQUE: A single frontal view of the chest was obtained. COMPARISON: Chest single view 02/28/2022, CT abdomen and pelvis 02/25/2022 FINDINGS: There are small right and moderate-sized left pleural effusions. There are airspace opaciti es in right lower lung zone and left mid and lower lung zones. No pneumothorax. Cardiomegaly is noted . A vascular stent overlies left upper chest. There is a suture anchor in right humeral head. IMPRESSION: 1. Stable small right and moderate-sized left pleural effusions. 2. Stable airspace opacities in right lower lung zone and left mid and lower lung zones, consistent w ith atelectasis versus pneumonia. 3. Cardiomegaly. Reviewed, dictated and finalized at location A. MONITOR IMPRESSION: 1. Stable small right and moderate-sized left pleural effusions. 2. Stable airspace opacities in right lower lung zone and left mid and lower parisa ng zones, consistent with atelectasis versus pneumonia. 3. Cardiomegaly.
--- NOTE | ~2022-02-19 | XR_ITS ---
EXAMINATION: XR chest 1V portable Exam Date/Time: 02/24/2022 16:45 LOTTERY MANAGER HISTORY: COVID Comparison: 02/19/2022. RESULT: Lines, tubes, and devices: Vascular stent projecting over the left scapula. Right humeral head soft tissue anchor. Lungs and pleura: Ill-defined, patchy bilateral groundglass opacities. Mild diffuse reticular opacit ies. Minimal bilateral costophrenic angle blunting. Increased left lower lobe consolidation. Cardiomediastinal silhouette: Stable. Other: No acute osseous or upper abdominal finding. IMPRESSION: Increased left lower lobe atelectasis/consolidation. Patchy bilateral pulmonary opacities, slightly i mproved, may reflect edema or infection. Small bilateral effusions. Reviewed, dictated and finalized at location K. ERY MANAGER IMPRESSION: Increased left lower lobe atelectasis/consolidation. Patchy bilateral pulmonary opacities, slightly improved, may reflect edema or infection. Small bilateral effusions.
--- NOTE | ~2022-02-19 | XR_ITS ---
EXAMINATION: XR chest 1V portable INDICATION: Shortness of breath TECHNIQUE: Portable AP chest at 0858 hours COMPARISON: 02/24/2022 FINDINGS: There are small, stable pleural effusions. Diffuse opacities throughout the mid and upper l carley zones persist but have improved. Bibasilar airspace opacities persist without significant change. No pneumothorax is identified. Cardiomegaly is noted. A vascular stent is noted in the left axilla. A suture anchor is noted in the right humeral head. There is moderate to severe osteoarthritis of the glenohumeral joints. IMPRESSION: 1. Small pleural effusions, stable. 2. Diffuse opacities, improved in the mid and upper lung zones and stable in the lung bases, consiste nt with pneumonia versus pulmonary edema versus atelectasis. Reviewed, dictated and finalized at location B. H SPECIALIST IMPRESSION: 1. Small pleural effusions, stable. 2. Diffuse opacities, improved in the mid and upper lung zones and stable in th e lung bases, consistent with pneumonia versus pulmonary edema versus atelectas is.
--- NOTE | ~2022-02-19 | US_ITS ---
EXAMINATION: US abdomen limited DATE: 02/23/2022 09:27 INDICATION: Tendinitis TECHNIQUE: Multiple grayscale and Doppler ultrasound images of the abdomen were obtained. COMPARISON: CT abdomen and pelvis dated 07/31/2019 FINDINGS: The pancreatic head and body are normal in appearance normal caliber main pancreatic duct measuring 1 .5 mm in the body of the pancreas. The pancreatic tail is not visualized. The visualized proximal in ferior vena cava is normal. Liver has normal echogenicity and contour, with a smooth surface. No live r lesion identified. No intrahepatic biliary duct dilation suspected. Portal venous flow was seen in the hepatopetal, normal direction and with Doppler venous waveforms demonstrate borderline increased pulsatility. There is normal hepatofugal venous flow in the hepatic veins with increased pulsatility with exaggerated retrograde A and V waves but maintenance of normal S and D waves which would be cons istent with congestive heart failure and which also likely accounts for the borderline increased port al venous pulsatility. The gallbladder is normal in appearance. There is no cholelithiasis. The comm on bile duct measures 4-5 mm, which is normal. Sonographic Isabel sign was reported as negative by [facility] associate programmer. IMPRESSION: 1. Borderline increased portal venous pulsatility and exaggerated hepatic vein A and V waves consiste nt with congestive heart failure. Otherwise normal right upper quadrant ultrasound. Reviewed, dictated and finalized at location A. IFIED PARALEGAL IMPRESSION: 1. Borderline increased portal venous pulsatility and exaggerated hepatic vein A and V waves consistent with congestive heart failure. Otherwise normal right upper quadrant ultrasound.
--- NOTE | ~2022-02-19 | CT_ITS ---
EXAMINATION: CT abdomen pelvis wo con DATE: 02/25/2022 15:29 INDICATION: Transaminitis, sepsis TECHNIQUE: Computed tomography (CT) of the abdomen and pelvis was performed without intravenous contr ast. Automated exposure control and iterative reconstruction technique were employed. The dose-length product was 869.61 mGy-cm. COMPARISON: None. FINDINGS: Exam limited by beam hardening from arm position and motion, particularly in the upper abdomen. Lower thorax: Trace pericardial effusion. Moderate coronary artery calcifications. Moderate bilateral pleural effusions. Bibasilar atelectasis/consolidation. Liver: Multiple hepatic cysts and lesions that are too small to characterize. Biliary/Gallbladder: Spurious contrast excretion, otherwise normal. No bile duct dilation. Pancreas: No mass or duct dilation. Spleen: Normal. Adrenals:No mass. Kidneys: Bilateral atrophy. Indeterminate exophytic right midpole and left upper pole lesions, possib ly representing hemorrhagic or proteinaceous cysts. No hydronephrosis. GI tract: No small or large bowel dilation. Normal appendix. Diverticulosis without diverticulitis. Mesentery/Peritoneum: No ascites, mass, or free air. Retroperitoneum: No mass. Atherosclerotic abdominal aortic and/or arterial calcifications. Pelvis: Pelvic organs are mostly obscured by metal artifact. Moderate presacral edema Soft Tissues: Diffuse body wall edema. Bones: Moderate L1 compression deformity. Partially visualized uncomplicated appearing right hip art hroplasty IMPRESSION: Limited examination, as detailed above. Small pericardial effusion. Moderate bilateral pleural effusi ons, with adjacent atelectasis, infection is not excluded. Indeterminate renal lesions, consider batsheva l ultrasound to evaluate for cystic character. Acute versus chronic moderate L1 vertebral body compre ssion fracture, correlate with pain/tenderness. Diffuse body wall edema. Reviewed, dictated and finalized at location K. CTOR OF REGULATORY AFFAIRS IMPRESSION: Limited examination, as detailed above. Small pericardial effusion. Moderate bi lateral pleural effusions, with adjacent atelectasis, infection is not excluded . Indeterminate renal lesions, consider renal ultrasound to evaluate for cystic character. Acute versus chronic moderate L1 vertebral body compression fractur e, correlate with pain/tenderness. Diffuse body wall edema.
--- NOTE | 2022-02-19 04:36 | ECG_ITS ---
Measurements Intervals Harleigh Rate: 106 P: 237 NE: 165 QRS: -69 QRSD: 152 T: 31 QT: 389 QTc: 518 Interpretive Statements SINUS TACHYCARDIA MARKED LEFT AXIS DEVIATION [QRS AXIS < -30] RIGHT BUNDLE BRANCH BLOCK [120+ ms QRS DURATION, UPRIGHT V1, 40+ ms S IN I/aVL/V4/V5/V6] COMPARED TO ECG 01/11/2022 16:16:59 SINUS TACHYCARDIA NOW PRESENT LEFT-AXIS DEVIATION NOW PRESENT Electronically Signed On 02-19-2022 15:32:19 FELT HOOKER by Megha Donahue M.D.
[2022-02-19 04:49] LABS: Basophils Percent Auto 0.2 % (0.2-1.2); Eosinophils Percent Auto 0.1 % (0-4.4); Hematocrit 28.2 % (42.0-52.0); Hemoglobin 8.4 g/dL (14.0-18.0); Immature Granulocyte Percent A 2.3 % (0-0.5); Lymphocytes Percent Auto 13.3 % (18.3-44.2); Mean Corpuscular HGB Conc 29.8 g/dl (32-36); Mean Corpuscular Hemoglobin 31.2 pg (26-34); Mean Corpuscular Volume 104.8 fl (80-100); Mean Platelet Volume 9.9 fl (7.4-10.4); Monocytes Absolute Auto 1.5 K/mm3 (0.1-0.6); Neutrophils Absolute Auto 9.2 K/mm3 (1.3-6.7); Neutrophils Percent Auto 72.1 % (45.5-73.1); Platelet Count Result 287 k/mm3 (150-375); Red Blood Count 2.69 M/mm3 (4.6-6.20); Red Cell Distribution Width 14.7 % (11.5-14.5); White Blood Count 12.8 K/mm3 (4.5-10.0)
--- NOTE | 2022-02-19 04:49 | ED.SOB ---
HPI - SOB/Dyspnea General Chief Complaint: Shortness of Breath/Dyspnea Stated Complaint: COVID + SOB 57% RA, CPAP 93% Time Seen by Provider: 02/19/22 04:36 History of Present Illness HPI Narrative: Patient is an 86-year-old male who presents ER with sudden onset shortness of breath. Woke him up from sleep. O2 saturation 56% on room air at the alf. Placed on BiPAP and improvement to 93%. Patient reports tenderness on the chest. Recently underwent ORIF of the right hip/femur due to fracture at [facility]. Patient receives dialysis Friday. His direct support staff is Dr. Acosta. Patient does still make urine. He is a full code. He takes apixaban. Patient is COVID-positive. Related Data Home Medications Medication Instructions Recorded Confirmed niacinamide 500 mg tablet (Niacin 500 mg PO DAILY 08/01/19 01/12/22 (niacinamide)) omega 8-oov-lgy-fish oil 1,000 mg 1 cap PO BID 08/01/19 01/12/22 (120 mg-180 mg) capsule (Fish Oil) diphenhydramine 25 2 tablet PO .COMPLEX PRN Insomnia 09/21/19 01/12/22 mg-acetaminophen 500 mg tablet (Tylenol PM Extra Strength) hydralazine 50 mg tablet 50 mg PO BID 06/05/20 01/12/22 apixaban 2.5 mg tablet (Eliquis) 2.5 mg PO BID 11/01/20 01/12/22 vitamin B comp no.3-folic acid 1 1 tablet PO DAILY 11/01/20 01/12/22 mg-vit C 60 mg-biotin 300 mcg tablet ([facility]) carvedilol 3.125 mg tablet 3.125 mg PO Q12H 01/01/21 01/12/22 sevelamer carbonate 0.8 gram oral 0.8 g PO TID 05/17/21 01/12/22 powder packet carvedilol 3.125 mg tablet 3.125 mg PO QHS 01/12/22 01/12/22 hydralazine 50 mg tablet 50 mg PO QHS 01/12/22 01/12/22 Allergies Allergy/AdvReac Type Severity Reaction Status Date / Time No Known Allergies Allergy Unknown Verified 05/17/21 13:11 Review of Systems Review of Systems: ROS unobtainable: Yes unobtainable due to medical condition [facility] Past Medical History Medical History (Updated 02/19/22 @ 06:33 by Jalil Lozoya MD) A-fib Chronic anticoagulation with Eliquis Adult BMI 19-24 kg/sq m Allergic sinusitis Anxiety Arthritis knees BPH (benign prostatic hyperplasia) Burst fracture of lumbar vertebra with routine healing Chronic anemia Chronic congestive heart failure With echocardiogram January 2019: Mild mitral valve regurgitation, [id number] tricuspid valve regurgitation, left ventricular systolic function moderate to severely reduced with EF of 35-40, mild pulmonary hypertension with RVSP of 40-45 CVA (cerebral vascular accident) 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 On fdc drug therapy Orthostatic hypotension Puncture wound Vitamin D deficiency Surgical History Surgical History (Updated 01/12/22 @ 05:12 by July Arboleda DO) History of cataract surgery Bilateral cataract removal History of ethmoidectomy With bilateral maxillary antrostomy 2009 History of skin graft To left foot After an accident at work. Status post creation of arteriovenous fistula left upper arm Family History Family History Father Cardiovascular disease Mother Cardiovascular disease Sibling Malignant neoplasm of prostate Cardiovascular disease Social History Social History (Updated 01/12/22 @ 05:04 by July Arboleda DO) Social History: The patient lives in [place] . He does not drink alcohol but did drink alcohol heavily when he was younger. He served in the [employer] for 18 months. 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 He worked at [employer] for 38 years. He has a daughter and a son who both live nearby. He quit smoking in the 1960s
[2022-02-19 04:54] LABS: Alveolar/Arterial O2 Gradient 627.7 mmHg; Base Excess ABG -12.5 mEq/l (+/-2.0); Fractional Inspired Oxygen 100 %; HCO3 ABG 12.2 mEq/l (22.0-26.0); Oxygen Saturation ABG 89.9 % (95.0-100.0); PCO2 ABG 24.6 mmHg (35.0-45.0); PO2 ABG 60.7 mmHg (80.0-100.0); PO2 FiO2 Ratio Arterial Blood 0.61 %; pH ABG 7.315 (7.350-7.450)
[2022-02-19 04:55] LABS: Oxyhemoglobin 86.8 % THb (90.0-100.0); Site Drawn RIGHT BRACHIAL
[2022-02-19 04:56] LABS: Device OTHER DEVICE
[2022-02-19 04:59] LABS: INR 1.6; Prothrombin Time 18.8 Seconds (11.1-14.7)
[2022-02-19 05:00] LABS: Partial Thromboplastin Time 38.1 SECONDS (22.3-36.8)
[2022-02-19 05:02] LABS: Albumin Level 3.7 g/dL (3.5-5.1); Alkaline Phosphatase 78 U/L (38-126); Anion Gap 21 mmol/L (8-16); Aspartate Amino Transferase 59 U/L (17-59); Bilirubin,Total 0.7 mg/dL (0.2-1.3); Blood Urea Nitrogen 45 mg/dL (9-20); Calcium 8.4 mg/dL (8.4-10.2); Carbon Dioxide 16 mmol/L (22-30); Chloride 93 mmol/L (98-107); Estimated Glomerular Filt Rate 6; Glucose 146 mg/dL (65-110); Potassium 6.1 mmol/L (3.4-5.0); Sodium 130 mmol/L (137-145)
[2022-02-19 05:07] LABS: Alanine Aminotransferase 31 U/L (6-50)
[2022-02-19 05:14] LABS: NT Pro B Type Natriuretic Pept > 35000 pg/mL (5-100)
[2022-02-19] MEDS: FUROSEMIDE INJ 40 MG/4 ML VIAL IV PUSH (05:34)
[2022-02-19] MEDS: CALCIUM GLUCONATE 1,000 MG/10 ML VIAL 1000 MG IV PUSH (05:38)
[2022-02-19] MEDS: DEXTROSE 50% 25 GM/50 ML SYRINGE IV PUSH (05:40)
[2022-02-19] MEDS: SODIUM BICARBONATE 8.4% 50 MEQ/50 ML SYRINGE IV PUSH (05:41)
[2022-02-19] MEDS: NITROGLYCERIN OINTMENT 1 INCH DOSE 0.5 INCH TRANSDERM (05:51)
[2022-02-19] MEDS: INSULIN HUMAN REGULAR (*BKC) 100 UNITS/ML IV PUSH (05:57)
[2022-02-19 06:38] LABS: Influenza A QL RT-PCR Negative (Negative); Influenza B QL RT-PCR Negative (Negative); SARS-CoV-2 RNA PCR Positive
--- NOTE | 2022-02-19 09:00 | PM.IMHP ---
H&P: HPI History of Present Illness Date/Time: 02/19/22 09:00 Chief Complaint: Respiratory failure Narrative: date of service: 02/19/2022 Jose Roberto Gregorio is an 86-year-old male with a history of atrial fibrillation on systemic anticoagulation, CVA, CHF, anemia, ESRD maintained on hemodialysis, hypertension, iron deficiency anemia, ALEXEY, orthostatic hypotension, BPH, and recent ORIF right hip /femur secondary to recent fracture sustained from fall currently undergoing therapy at [facility] who presented to the emergency department on 02/19/2022 with shortness of breath. The patient is having a difficult time providing history and has BiPAP mask in place, therefore information is obtained from EMR and with phone call with patient's son/POA, Jorge. reportedly the patient woke from sleep with sudden onset shortness of breath. Oxygen saturations were noted to be 56% on room air at nursing facility. Reportedly the patient complained of chest tenderness. The patient's son, Jorge, notes that on 02/17, he tested positive for COVID at the nursing facility and was started on steroids. Over the past 2 days, he developed nausea and vomiting, and therefore unfortunately missed his hemodialysis yesterday due to illness. on presentation to the emergency department, he was tachycardic and tachypneic, however oxygen saturations improved to 100% with placement on BiPAP. he had mild leukocytosis of 12.8, mild decreased H&H, potassium 6.1, BUN 45, creatinine 8.6, anion gap 21, troponin 1.44, BNP >52495, COVID PCR positive, ABG revealed metabolic acidosis, CXR showed diffuse lung disease consistent with pulmonary edema vs pneumonia and small left pleural effusion. At the time of my evaluation, the patient has no complaints. He is maintaining adequate oxygen saturation on BiPAP. He denies any recent sick contacts. He indicates that he completed his COVID vaccination and booster and believes he received a flu shot. He reports his breathing is better. He denies chest pain. He believes he is hospitalized because he fell and broke his hip. He is not able to provide any additional pertinent history. He is being admitted to the hospitalist service. Review of Systems Review of Systems: All systems reviewed & are unremarkable except as noted in HPI and below PMFSH Past Medical History Medical History (Updated 12/20/22 @ 09:51 by Ailyn Rivers PA-C) A-fib Chronic anticoagulation with Eliquis Adult BMI 19-24 kg/sq m Allergic sinusitis Anxiety Arthritis knees BPH (benign prostatic hyperplasia) Burst fracture of lumbar vertebra with routine healing Chronic anemia Chronic congestive heart failure With echocardiogram January 2019: Mild mitral valve regurgitation, [id number] tricuspid valve regurgitation, left ventricular systolic function moderate to severely reduced with EF of 35-40, mild pulmonary hypertension with RVSP of 40-45 CVA (cerebral vascular accident) 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 On detention drug therapy Orthostatic hypotension Puncture wound Vitamin D deficiency Surgical History Surgical History (Updated 02/19/22 @ 09:30 by Ailyn Rivers PA-C) History of cataract surgery Bilateral cataract removal History of ethmoidectomy With bilateral maxillary antrostomy 2009 History of hip surgery (~01/2022) ORIF History of skin graft To left foot After an accident at work. Status post creation of arteriovenous fistula left upper arm Family History Family History Father Cardiovascular disease Mother Cardiovascular d
[2022-02-19 14:41] LABS: Alveolar/Arterial O2 Gradient 82.1 mmHg; Fractional Inspired Oxygen 30 %; HCO3 ABG 22.2 mEq/l (22.0-26.0); Oxygen Content ABG 11.4 %vol (16.0-22.0); Oxygen Saturation ABG 98.2 % (95.0-100.0); Oxyhemoglobin 95.9 % THb (90.0-100.0); PCO2 ABG 27.3 mmHg (35.0-45.0); PO2 ABG 99.7 mmHg (80.0-100.0); PO2 FiO2 Ratio Arterial Blood 3.32 %; Total Hemoglobin 8.3 g/dL (12.0-18.0)
[2022-02-19 14:42] LABS: Modified Allen's Test Pass; Site Drawn RIGHT RADIAL; pH ABG 7.529 (7.350-7.450)
[2022-02-19] MEDS: guaiFENesin 12 HR 600 MG TABCR PO ×2 (15:45→20:02)
--- NOTE | 2022-02-19 15:55 | ADMGEN ---
This patient, Jose Roberto Gregorio, was admitted to IMU Room 200-01, remains boarded in ED 7 at this time. Bipap off, 2l o2 nc is on. Patient/family oriented to hospital policies and general routines including ID bracelet, bed and alarms, visiting hours, pain management, procedures, bathroom and other care routines, personal items, smoking policy, room service/diet, and visiting hours. Information on how to activate the Rapid Response Team has been discussed. Patient/Family are encouraged to report perceived risks to care and to ask questions if they do not understand what they are told or what they should do.
[2022-02-19 17:47] LABS: Potassium 4.3 mmol/L (3.4-5.0)
--- NOTE | 2022-02-19 18:08 | PC.NURSE ---
1727: Called Dr. Orozco regarding patient's heart rate in the 130's-140's, and to notify him of the critical troponin level of 5.580. Pt is asymptomatic. New order to call Plant Anatomy Teacher with troponin level, and Dr. Orozco will resume home medications. 1738: Page placed with [facility] Cardiology group for Dr. Glass regarding elevated troponin. 1745: Dr. Glass returned call. This RN spoke with Dr. Glass regarding the elevated troponin. Pt also in Afib RVR with home medications being resumed now. (Amiodarone 200mg PO Daily & Metoprolol Succ 25mg PO Daily) Pt is ESRD on hemodialysis, recent hip fx with ORIF for repair two weeks ago, COVID +, and bilateral lower extremity edema. Pt is on Eliquis 2.5mg PO BID. Dr. Glass's recommendations are to obtain a CTA to r/o PE, hold eliquis incase pt is a NSTEMI and warrants treatment in the AM, and repeat troponin at 2100. No need to call if troponin is trending down at the 2100 draw. 1800: Dr. Orozco notified of Dr. Glass's recommendations. Unable to send patient for CTA currently d/t ESRD and pt has already been dialyzed today. Dr. Orozco spoke with Dr. Acosta (pt's atmospheric technician) regarding this issue. Dr. Acosta is in agreement with CTA, but would like to wait until AM if possible so that patient can be dialyzed after scan to removed contrast from patient. Per Dr. Orozco will wait until AM to obtain CTA, but patient may need to go for cardiac catheterization if patient becomes symptomatic or troponin levels continue to increase.
[2022-02-19] MEDS: VENLAFAXINE HCL 75 MG TABLET PO (18:25)
[2022-02-19] MEDS: SEVELAMER CARBONATE 800 MG TABLET PO (18:25)
[2022-02-19] MEDS: AMIODARONE HCL 200 MG TABLET PO (18:25)
[2022-02-19] MEDS: METOPROLOL SUCCINATE EXT REL 25 MG TABCR PO (18:25)
[2022-02-20] VITALS (27 sets, daily range): BP systolic 119–149; BP diastolic 62–93; PULSE 69–137; RESP 16–26; TEMP 36–37; O2SAT 94–100
[2022-02-20 04:26] LABS: Basophils Percent Auto 0.1 % (0.2-1.2); Hemoglobin 7.7 g/dL (14.0-18.0); Immature Granulocyte Absolute 0.15 K/mm3 (0.00-0.031); Immature Granulocyte Percent A 1.5 % (0-0.5); Lymphocytes Absolute Auto 0.54 K/mm3 (0.9-3.2); Lymphocytes Percent Auto 5.3 % (18.3-44.2); Mean Corpuscular HGB Conc 30.8 g/dl (32-36); Mean Corpuscular Hemoglobin 31.4 pg (26-34); Mean Platelet Volume 10.6 fl (7.4-10.4); Monocytes Absolute Auto 0.7 K/mm3 (0.1-0.6); Monocytes Percent Auto 7.1 % (2.6-8.5); Neutrophils Absolute Auto 8.8 K/mm3 (1.3-6.7); Platelet Count Result 191 k/mm3 (150-375); Red Blood Count 2.45 M/mm3 (4.6-6.20); Red Cell Distribution Width 14.7 % (11.5-14.5); White Blood Count 10.3 K/mm3 (4.5-10.0)
[2022-02-20 04:48] LABS: Alanine Aminotransferase 142 U/L (6-50); Albumin Level 3.4 g/dL (3.5-5.1); Alkaline Phosphatase 86 U/L (38-126); Anion Gap 11 mmol/L (8-16); Aspartate Amino Transferase 464 U/L (17-59); Bilirubin,Total 0.8 mg/dL (0.2-1.3); Blood Urea Nitrogen 39 mg/dL (9-20); Calcium 8.2 mg/dL (8.4-10.2); Carbon Dioxide 25 mmol/L (22-30); Chloride 98 mmol/L (98-107); Estimated CRCL calculation 10 ml/min; Estimated Glomerular Filt Rate 10; Glucose 100 mg/dL (65-110); Lactate Dehydrogenase 988 U/L (120-246); Potassium 5.1 mmol/L (3.4-5.0); Sodium 134 mmol/L (137-145)
[2022-02-20 05:02] LABS: CRP 14.2 mg/dL (<1.0)
[2022-02-20] MEDS: ATORVASTATIN 40 MG TABLET PO (08:48)
[2022-02-20] MEDS: VITAMIN B CMPLX/VIT C/FOLIC AC 1 CAPSULE 1 CAP PO (08:48)
[2022-02-20] MEDS: AMIODARONE HCL 200 MG TABLET PO (08:48)
[2022-02-20] MEDS: VENLAFAXINE HCL 75 MG TABLET PO ×2 (08:48→17:17)
[2022-02-20] MEDS: SEVELAMER CARBONATE 800 MG TABLET PO ×2 (08:48→17:17)
[2022-02-20] MEDS: METOPROLOL SUCCINATE EXT REL 25 MG TABCR PO (08:48)
[2022-02-20] MEDS: guaiFENesin 12 HR 600 MG TABCR PO ×2 (08:48→20:26)
[2022-02-20] MEDS: CHOLECALCIFEROL 1,000 UNITS TABLET 2000 UNITS PO (08:48)
[2022-02-20] MEDS: allopurinoL 150 MG TABLET BY MOUTH (08:48)
[2022-02-20] MEDS: calcitrioL 0.25 MCG CAPSULE PO (08:48)
--- NOTE | 2022-02-20 14:06 | PCPTNOTE ---
Attempted PT evaluation, pt at dialysis. Will Follow.
--- NOTE | 2022-02-20 14:36 | PCOTNOTE ---
Attempted occupational therapy evaluation. Pt.away from room for dialysis at this time. Following.
--- NOTE | 2022-02-20 15:07 | PM.CNNEP ---
Assessment and Plan Assessment and plan (1) ESRD (end stage renal disease) on dialysis: Code(s): N18.6 - End stage renal disease; Z99.2 - Dependence on renal dialysis Status: Acute Assessment and Plan: end-stage renal disease Hypertensive renal disease with renal failure Hyperkalemia Hyponatremia Fluid overload CHF as a result next item atrial fibrillation with rapid ventricular response anemia chronic kidney disease secondary hyperparathyroidism Plan -hemodialysis originally done yesterday and today, dialysis supervised today -Control heart rate and rhythm, defer to Cardiology Maintenance of treatment for ESRD and related. History of Present Illness Reason for Consult Consult date: 02/20/22 Reason for consult: end stage renal disease ( Seen and examined on hemodialysis today and hemodialysis supervised 02/20/2022) Chief Complaint Chief complaint: Flash Pulmonary Edema/Acute Resp Failure/Elevated History of Present Illness Narrative: 86-year-old ESRD patient with hypertensive renal disease, sclerosis who is on dialysis 3 times a week. He recently transferred to [facility] from [facility]. he has a left upper arm AV fistula. He is seen and examined on hemodialysis and hemodialysis supervised. recently diagnosed with COVID, started on steroids, however several days after patient developed shortness of breath, coughing, dry cough. Chest x-ray shows pulmonary edema versus pneumonia. He was on BiPAP yesterday, had atrial fibrillation with rapid ventricular response but stable blood pressure. Not much fluid removed yesterday relative to need, however the patient is breathing better than he did yesterday. Today as well he has tachycardia. he does not feel that well. He has bilateral lower extremity swelling. Sleeping upright. Review of Systems Review of Systems: Denies any fevers or chills. No nausea vomiting. No chest pain or chest pressure. Negative other systemic issues. [facility] Past Medical History Medical History (Updated 02/20/22 @ 15:16 by Dharmesh Acosta MD) A-fib Chronic anticoagulation with Eliquis Adult BMI 19-24 kg/sq m Allergic sinusitis Anxiety Arthritis knees BPH (benign prostatic hyperplasia) Burst fracture of lumbar vertebra with routine healing Chronic anemia Chronic congestive heart failure With echocardiogram January 2019: Mild mitral valve regurgitation, [id number] tricuspid valve regurgitation, left ventricular systolic function moderate to severely reduced with EF of 35-40, mild pulmonary hypertension with RVSP of 40-45 CVA (cerebral vascular accident) 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 On watcher autom[employer] drug therapy Orthostatic hypotension Puncture wound Vitamin D deficiency Surgical History Surgical History (Updated 02/19/22 @ 09:30 by Ailyn Rivers PA-C) History of cataract surgery Bilateral cataract removal History of ethmoidectomy With bilateral maxillary antrostomy 2009 History of hip surgery (~01/2022) ORIF History of skin graft To left foot After an accident at work. Status post creation of arteriovenous fistula left upper arm Family History Family History Father Cardiovascular disease Mother Cardiovascular disease Sibling Malignant neoplasm of prostate Cardiovascular disease Social History Social History (Updated 02/19/22 @ 09:31 by Ailyn Rivers PA-C) Social History: The patient lives in [place] . He does not drink alcohol but did drink alcohol heavily when he was younger. He served in the [employer] f
--- NOTE | 2022-02-20 15:38 | PM.IMPN ---
Progress Note: A&P Assessment and Plan (1) Acute respiratory failure with hypoxia: Code(s): J96.01 - Acute respiratory failure with hypoxia Status: Acute Assessment and Plan: Presented from nursing facility with sudden onset of shortness of breath and O2 sats 56% on room air. Suspect multifactorial in etiology secondary to volume overload from missed dialysis, CHF, COVID-19. CXR reveals diffuse lung disease consistent with pulmonary edema versus pneumonia. he was able to be weaned from BiPAP and is currently requiring 1 L supplemental oxygen per nasal cannula. Continue oxygen as needed and wean as tolerated. (2) Flash pulmonary edema: Code(s): J81.0 - Acute pulmonary edema Status: Acute Assessment and Plan: Likely secondary to missed dialysis. CXR reveals findings of pulmonary edema and small left pleural effusion. Nephrology consulted for dialysis management patient had improvement in volume status and respiratory symptoms following hemodialysis. Continue to monitor volume status (3) COVID-19: Code(s): U07.1 - COVID-19 Status: Acute Assessment and Plan: COVID positive on 02/17/2022. Patient received 2 doses of steroids at nursing facility. Will continue with IV dexamethasone during admission. Patient not a candidate for remdesivir given his renal failure. Supportive care will be provided including bronchodilators, expectorants, incentive spirometry, Cornet. Implement isolation precautions. Patient completed COVID vaccination and booster. (4) Systolic CHF: Code(s): I50.20 - Unspecified systolic (congestive) heart failure Status: Acute Assessment and Plan: Likely contributing to acute respiratory failure. Last echocardiogram revealed left ventricular systolic function with moderately to severely reduced EF of 35-40%. BNP is >90180. volume status improved with hemodialysis. Continue to monitor volume status accurate I&Os. Continue carvedilol. (5) Elevated troponin: Code(s): R77.8 - Other specified abnormalities of plasma proteins Status: Acute Assessment and Plan: Troponin elevated from baseline with peak 5.58. initial documentation states play laird complained of chest pressure, however patient denies any episodes of chest pain to me. EKG reviewed. Cardiology has been consulted from the emergency department and recommendations are appreciated. (6) ESRD on dialysis: Code(s): N18.6 - End stage renal disease; Z99.2 - Dependence on renal dialysis Status: Acute Assessment and Plan: Maintained on hemodialysis on MWF. Missed dialysis on 02/18 due to illness. Seen in consultation this admission by Nephrology to manage routine dialysis. Patient dialyzed on 02/19 and being dialyzed again today on 02/20. (7) Increased anion gap metabolic acidosis: Code(s): E87.29 - Other acidosis Status: Resolved Assessment and Plan: Likely secondary to ESRD. repeat ABG improved. BMP improved today. (8) S/P ORIF (open reduction internal fixation) fracture: Code(s): Z98.890 - Other specified postprocedural states; Z87.81 - Personal history of (healed) traumatic fracture Status: Acute Assessment and Plan: Underwent ORIF right hip fracture 2 weeks prior. currently undergoing therapy at [facility]. Son reports patient was able to complete standing and pivoting. Appreciate PT/OT eval as during admission. Implement fall precautions. (9) Hyperkalemia: Code(s): E87.5 - Hyperkalemia Status: Acute Assessment and Plan: Potassium elevated to 6.1 on presentation, secondary to renal failure/ missed dialysis. Sodium improved following IV calcium gluconate and sodium bicarbonate followed by dialysis. potassium 5.1 today and patient receiving dialysis. Continue to monitor BMP (10) Transaminitis: Code(s): R74.01 - Elevation of levels of l
--- NOTE | 2022-02-20 16:03 | PM.CNCAR ---
Assessment and Plan Assessment and plan (1) ESRD (end stage renal disease) on dialysis: Code(s): N18.6 - End stage renal disease; Z99.2 - Dependence on renal dialysis Status: Acute (2) Systolic CHF: Code(s): I50.20 - Unspecified systolic (congestive) heart failure Status: Acute (3) Acute respiratory failure with hypoxia: Code(s): J96.01 - Acute respiratory failure with hypoxia Status: Acute (4) Flash pulmonary edema: Code(s): J81.0 - Acute pulmonary edema Status: Acute (5) Elevated troponin: Code(s): R77.8 - Other specified abnormalities of plasma proteins Status: Acute (6) Acute respiratory failure: Code(s): J96.00 - Acute respiratory failure, unspecified whether with hypoxia or hypercapnia Status: Acute Plan Will obtain an echocardiogram. If his EF is reduced, he may need cardiac cath for ischemic evaluation while he is here given his troponin jaquelin up to 5.5. Apixaban has been on hold in case we do pursue cath. For his AFIB, continue with home Amiodarone, Metoprolol. If additional rate control for his atrial fibrillation is needed, then can go up on his Metoprolol. History of Present Illness History of Present Illness Consult date/time: 02/20/22 16:03 Requesting physician: Jalil Lozoya MD Consult reason: Other (Elevated troponin) Reason For Visit: Flash Pulmonary Edema/Acute Resp Failure/Elevated Narrative: This is an 86-year-old male with a history of atrial fibrillation, HFrEF, CVA, ESRD on hemodialysis, hypertension, recent ORIF right hip/femur secondary to recent fracture sustained from a fall who presented with sudden onset shortness of breath. Patient was noted to be hypoxic at his nursing facility. Patient had tested positive for COVID 02/17. He then developed nausea/vomiting. Had to miss his dialysis sessions. When he presented he was placed on BIPAP. BNP >35,000. Troponins peaked at 5.5 COVID positive He got dialyzed yesterday with improvement in volume status. He denies any chest pain or shortness of breath to me at this time. His primary stratigraphy teacher is Dr. Radames Salinas. Per his last note from May 2021, he had cardiomyopathy with LVEF 35-40%. Cardiac cath was not done at that time due to CKD. He had an echo showing improvement in EF to 45% as of 01/2021. He had a stress test done in 2019 showing small mild infarct involving apical segment of LV with EF 33%. He was reportedly asymptomatic at that time. Review of Systems Review of Systems: 12-point ROS obtained. Negative, unless stated in HPI. [facility] Past Medical History Medical History A-fib Chronic anticoagulation with Eliquis Adult BMI 19-24 kg/sq m Allergic sinusitis Anxiety Arthritis knees BPH (benign prostatic hyperplasia) Burst fracture of lumbar vertebra with routine healing Chronic anemia Chronic congestive heart failure With echocardiogram January 2019: Mild mitral valve regurgitation, [id number] tricuspid valve regurgitation, left ventricular systolic function moderate to severely reduced with EF of 35-40, mild pulmonary hypertension with RVSP of 40-45 CVA (cerebral vascular accident) 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 On salvage determiner drug therapy Orthostatic hypotension Puncture wound Vitamin D deficiency Surgical History Surgical History History of cataract surgery Bilateral cataract removal History of ethmoidectomy With bilateral maxillary antrostomy 2009 History of hip surgery (~01/2022) ORIF History of ski
[2022-02-20] MEDS: EPOETIN ALFA-EPBX 4,000 UNITS/ML VIAL 4000 UNITS SUB-Q (18:24)
[2022-02-20 19:19] LABS: Hepatitis B Surface Antigen Negative (Negative)
[2022-02-20 19:24] LABS: HAV RESULT Negative (Negative); Hepatitis B Core IgM Result Negative (Negative)
[2022-02-20 19:36] LABS: Hepatitis C Virus Antibody Negative (Negative)
[2022-02-21] VITALS (12 sets, daily range): BP systolic 147–176; BP diastolic 72–87; PULSE 61–85; RESP 16–20; TEMP 36.3–36.6; O2SAT 98–100
--- NOTE | 2022-02-21 | ECHO_ITS ---
Patient Info Name: Jose Roberto Gregorio Age: 86 years : 1935 Gender: Male Ht: 72 in Wt: 166 lbs BSA: 1.95 m2 HR: 66 bpm BP: 173 / 82 mmHg Heart Rhythm: Sinus Rhythm Exam Date: 02/21/2022 2:01 PM Exam Location: [facility] Pulmonary Patient Status: Inpatient Admit Date: 02/19/2022 Staff Ordering Physician: Megha Donahue MD ([email or web address]/bethany) Microbiological Analyst: Patrick Isabel, MANGO, RT Attending Provider: Ailyn Rivers PA-C Referring Physician: Godfrey HAAS; Exam Type: CA echo doppler color flow Study Info Indications I50.9 - Heart failure, unspecified Complete two-dimensional, color flow and Doppler transthoracic echocardiogram is performed. Strain analysis performed. Summary 1. Complete two-dimensional, color flow and Doppler transthoracic echocardiogram is performed. 2. Strain analysis performed. 3. Left ventricular chamber dimension is normal. 4. Left ventricular systolic function is moderate to severely reduced, estimated at 30-35%. 5. There is moderately increased left ventricular wall thickness. 6. The left ventricular diastolic function is grade II diastolic dysfunction. 7. Global longitudinal strain is abnormal at -14 %. 8. The apical septum, mid inferior wall, mid inferoseptal, and mid anteroseptal are akinetic. 9. The anterior wall, apical lateral wall, apical inferior wall, apical cap, basal inferior wall, basal inferoseptal, mid anterolateral wall, and basal anteroseptal are hypokinetic. 10. Right ventricular chamber dimension is mildly enlarged. 11. Left atrial chamber dimension is moderately enlarged. 12. Right atrial chamber dimension is mildly enlarged. 13. There is mild aortic valve regurgitation. 14. There is mild aortic valve calcification. 15. There is moderate mitral valve regurgitation. 16. There is moderate tricuspid valve regurgitation. 17. Moderate pulmonary hypertension, estimated pulmonary arterial systolic pressure is 59 mmHg. 18. There is moderate pulmonic regurgitation. Left Ventricle Left ventricular chamber dimension is normal. Left ventricular systolic function is moderate to severely reduced, estimated at 30-35%. There is moderately increased left ventricular wall thickness. The left ventricular diastolic function is grade II diastolic dysfunction. Global longitudinal strain is abnormal at -14 %. The apical septum, mid inferior wall, mid inferoseptal, and mid anteroseptal are akinetic. The anterior wall, apical lateral wall, apical inferior wall, apical cap, basal inferior wall, basal inferoseptal, mid anterolateral wall, and basal anteroseptal are hypokinetic. All other pace appear normal. Right Ventricle Right ventricular chamber dimension is mildly enlarged. Right ventricular systolic function is normal. Left Atria Left atrial chamber dimension is moderately enlarged. Right Atria Right atrial chamber dimension is mildly enlarged. Atrial Septum Intact interatrial septum visualized by color flow imaging. Aortic Valve The aortic valve is trileaflet. There is moderate aortic valve sclerosis. There is no aortic valve stenosis. There is mild aortic valve regurgitation. There is mild aortic valve calcification. Pulmonic Valve The pulmonic valve is normal. There is no pulmonic valve stenosis. There is moderate pulmonic regurgitation. Mitral Valve The mitral valve has thickened leaflets. There is no mitral valve stenosis. There is moderate mitral valve regurgitation. Tricuspid Valve The tricuspid
[2022-02-21 04:38] LABS: Hematocrit 25.6 % (42.0-52.0); Mean Corpuscular HGB Conc 31.3 g/dl (32-36); Mean Corpuscular Hemoglobin 30.9 pg (26-34); Mean Corpuscular Volume 98.8 fl (80-100); Mean Platelet Volume 11.1 fl (7.4-10.4); Platelet Count Result 202 k/mm3 (150-375); Red Blood Count 2.59 M/mm3 (4.6-6.20); Red Cell Distribution Width 14.7 % (11.5-14.5); White Blood Count 10.7 K/mm3 (4.5-10.0)
[2022-02-21 04:50] LABS: Anion Gap 7 mmol/L (8-16); Blood Urea Nitrogen 36 mg/dL (9-20); Calcium 7.9 mg/dL (8.4-10.2); Carbon Dioxide 33 mmol/L (22-30); Chloride 90 mmol/L (98-107); Estimated CRCL calculation 13 ml/min; Estimated Glomerular Filt Rate 15; Glucose 91 mg/dL (65-110); Potassium 4.7 mmol/L (3.4-5.0); Sodium 130 mmol/L (137-145)
[2022-02-21] MEDS: CHOLECALCIFEROL 1,000 UNITS TABLET 2000 UNITS PO (09:17)
[2022-02-21] MEDS: VITAMIN B CMPLX/VIT C/FOLIC AC 1 CAPSULE 1 CAP PO (09:17)
[2022-02-21] MEDS: SEVELAMER CARBONATE 800 MG TABLET PO ×2 (09:17→17:29)
[2022-02-21] MEDS: calcitrioL 0.25 MCG CAPSULE PO (09:18)
[2022-02-21] MEDS: AMIODARONE HCL 200 MG TABLET PO (09:18)
[2022-02-21] MEDS: allopurinoL 150 MG TABLET BY MOUTH (09:18)
[2022-02-21] MEDS: VENLAFAXINE HCL 75 MG TABLET PO ×2 (09:18→17:29)
[2022-02-21] MEDS: guaiFENesin 12 HR 600 MG TABCR PO ×2 (09:18→20:04)
[2022-02-21] MEDS: METOPROLOL SUCCINATE EXT REL 25 MG TABCR PO (09:18)
[2022-02-21 09:55] LABS: Albumin Level 3.3 g/dL (3.5-5.1); Alkaline Phosphatase 115 U/L (38-126); CRP 8.4 mg/dL (<1.0)
[2022-02-21 09:56] LABS: Bilirubin,Total 0.9 mg/dL (0.2-1.3)
--- NOTE | 2022-02-21 10:21 | PM.PNCARD ---
Progress Note: A&P Assessment and Plan (1) ESRD (end stage renal disease) on dialysis: Code(s): N18.6 - End stage renal disease; Z99.2 - Dependence on renal dialysis Status: Acute Assessment and Plan: Continue dialysis (2) Systolic CHF: Code(s): I50.20 - Unspecified systolic (congestive) heart failure Status: Acute Assessment and Plan: Continue metoprolol, statin (3) Acute respiratory failure with hypoxia: Code(s): J96.01 - Acute respiratory failure with hypoxia Status: Acute (4) Flash pulmonary edema: Code(s): J81.0 - Acute pulmonary edema Status: Acute (5) Elevated troponin: Code(s): R77.8 - Other specified abnormalities of plasma proteins Status: Acute Assessment and Plan: Likely ACS. Troponin has significantly risen now falling. Will repeat EKG. Will start on heparin drip per protocol since anticoagulation with Eliquis is on hold. Eventual ischemic evaluation (6) Acute respiratory failure: Code(s): J96.00 - Acute respiratory failure, unspecified whether with hypoxia or hypercapnia Status: Acute (7) A-fib: Qualifiers: Atrial fibrillation type: unspecified Qualified Code(s): I48.91 - Unspecified atrial fibrillation Code(s): I48.91 - Unspecified atrial fibrillation Status: Acute Assessment and Plan: Back in sinus rhythm. Continue amiodarone. Eliquis on hold for possible catheterization. Awaiting echocardiogram. Plan Will obtain an echocardiogram. If his EF is reduced, he may need cardiac cath for ischemic evaluation while he is here given his troponin jaquelin up to 5.5. Apixaban has been on hold in case we do pursue cath. Subjective Date/time seen: 02/21/22 10:21 Interval history: This is an 86-year-old male with a history of atrial fibrillation, HFrEF, CVA, ESRD on hemodialysis, hypertension, recent ORIF right hip/femur secondary to recent fracture sustained from a fall who presented with sudden onset shortness of breath. Patient was noted to be hypoxic at his nursing facility. Patient had tested positive for COVID 02/17. He then developed nausea/vomiting. Had to miss his dialysis sessions. When he presented he was placed on BIPAP. BNP >35,000. Troponins peaked at 5.5 COVID positive Date of service 02/21/2022: Feels okay. No chest pain. Has some lower extremity swelling. Mild shortness of breath Review of Systems Review of Systems: All systems reviewed & are unremarkable except as noted in HPI and below Constitutional: Constitutional: Denies body ache(s) ENT: Reports Normal hearing present Cardiovascular: Cardiovascular: Denies chest pain and Reports leg edema Respiratory: Respiratory: Denies hemoptysis Genitourinary: Genitourinary: Denies hematuria Psychiatric: Psychiatric: Denies confusion Exam Const: General: comfortable and no acute distress HENMT: Mouth: Yes moist mucous membranes Eyes: General: appearance normal, both eyes and all related structures Sclera: sclerae normal Neck: Neck: supple Resp: Effort & Inspection: normal respiratory effort Auscultation: clear to auscultation bilaterally Cardio: Rate: regular rate Rhythm: regular rhythm Heart sounds: no murmurs Skin: General skin exam: normal color Neuro: Speech: normal speech Extrem: General: normal to inspection and no edema Psych: Mental Status: mental status grossly normal Affect: normal affect Objective Data Vital Signs Vital Signs: Vital Signs - 24 hr 02/20/22 11:45 02/20/22 11:45 02/20/22 12:00 Temperature 36.2 C L Pulse Rate 101 H 102 H Respiratory Rate 22 H Blood Pressure 130/78 Pulse Oximetry 100 99 Oxygen Delivery Room Air 02/20/22 13:17 02/20/22 13:00 02/20/22 13:40 Temperature 36.7 C Pulse Rate 98 102 H 109 H Respiratory Rate 16 Blood Pressure 144/84 H 149/93 H 137/92 H Pulse Oximetry Oxygen Delivery 02/20/22 14:00 02/20/22 14:20
--- NOTE | 2022-02-21 10:30 | ECG_ITS ---
Measurements Intervals [place] Rate: 66 P: -23 UT: 185 QRS: 14 QRSD: 150 T: -31 QT: 466 QTc: 491 Interpretive Statements SINUS RHYTHM WITH OCCASIONAL SUPRAVENTRICULAR PREMATURE COMPLEXES RIGHT BUNDLE BRANCH BLOCK [120+ ms QRS DURATION, UPRIGHT V1, 40+ ms S IN I/aVL/V4/V5/V6] ABNORMAL ECG COMPARED TO ECG 02/19/2022 04:44:53 SINUS RHYTHM NOW PRESENT Electronically Signed On 02-21-2022 16:53:43 TILE SETTER SUPERVISOR by Fab Glass M.D.
[2022-02-21 10:41] LABS: Alanine Aminotransferase 1036 U/L (6-50)
[2022-02-21 10:42] LABS: Aspartate Amino Transferase 2157 U/L (17-59); Lactate Dehydrogenase 3408 U/L (120-246)
--- NOTE | 2022-02-21 12:06 | PCSTNOTE ---
Please refer to the Bedside Swallow Evaluation in the EMR. Please note, silent aspiration cannot be ruled out at bedside.
--- NOTE | 2022-02-21 15:08 | PM.IMPN ---
Progress Note: A&P Assessment and Plan (1) Acute respiratory failure with hypoxia: Code(s): J96.01 - Acute respiratory failure with hypoxia Status: Acute Assessment and Plan: Presented from nursing facility with sudden onset of shortness of breath and O2 sats 56% on room air. Suspect multifactorial in etiology secondary to hypervolemia from missed dialysis, CHF, COVID-19. CXR reveals diffuse lung disease consistent with pulmonary edema versus pneumonia. He was able to be weaned from BiPAP and is now maintaining adequate O2 sats on room air. Continue supplemental oxygen as needed with goal sats 92% or above. (2) Flash pulmonary edema: Code(s): J81.0 - Acute pulmonary edema Status: Acute Assessment and Plan: Likely secondary to missed dialysis. CXR reveals findings of pulmonary edema and small left pleural effusion. Nephrology consulted for dialysis management and patient had improvement in volume status and respiratory symptoms following hemodialysis. Continue to monitor volume status (3) COVID-19: Code(s): U07.1 - COVID-19 Status: Acute Assessment and Plan: COVID positive on 02/17/2022. Patient received 2 doses of steroids at nursing facility. Will continue with IV dexamethasone during admission. Patient not a candidate for remdesivir given his renal failure. Supportive care will be provided including bronchodilators, expectorants, incentive spirometry, Cornet. Implement isolation precautions. Patient completed COVID vaccination and booster. Inflammatory markers are elevated and will be monitored. (4) Systolic CHF: Code(s): I50.20 - Unspecified systolic (congestive) heart failure Status: Acute Assessment and Plan: Likely contributing to acute respiratory failure. Last echocardiogram revealed left ventricular systolic function with moderately to severely reduced EF of 35-40%. BNP is >49739. volume status improved with hemodialysis. Continue to monitor volume status with accurate I&Os. Continue carvedilol. Repeat echo pending (5) Elevated troponin: Code(s): R77.8 - Other specified abnormalities of plasma proteins Status: Acute Assessment and Plan: Troponin elevated from baseline with peak 5.58. initial documentation states patient complained of chest pressure, however patient denies any episodes of chest pain to me. EKG reviewed. Appreciate cardiology consultation and recommendations. Concern for ACS given troponin rise. Echocardiogram pending. Eliquis has been on hold as ischemic workup/catheterization being considered. Will begin heparin drip per cardiology recommendations. (6) ESRD on dialysis: Code(s): N18.6 - End stage renal disease; Z99.2 - Dependence on renal dialysis Status: Acute Assessment and Plan: Maintained on hemodialysis on MWF. Missed dialysis on 02/18 due to illness. Seen in consultation this admission by Nephrology to manage routine dialysis. Patient dialyzed on 02/19 and 02/20. Next hemodialysis tomorrow (7) S/P ORIF (open reduction internal fixation) fracture: Code(s): Z98.890 - Other specified postprocedural states; Z87.81 - Personal history of (healed) traumatic fracture Status: Acute Assessment and Plan: Underwent ORIF right hip fracture 2 weeks prior. currently undergoing therapy at [facility]. Son reports patient was able to complete standing and pivoting. Appreciate PT/OT eval as during admission. Implement fall precautions. (8) Hyperkalemia: Code(s): E87.5 - Hyperkalemia Status: Acute Assessment and Plan: Potassium elevated to 6.1 on presentation, secondary to renal failure/ missed dialysis. Potassium improved following IV calcium gluconate and sodium bicarbonate followed by dialysis. Potassium levels normal today. Continue to monitor BMP (9) Transaminitis: Code(s): R74.01 - Elevation of levels of l
[2022-02-21] MEDS: HEPARIN SOD/D5W 100 UNITS/ML 25,000 UNITS/250 ML BAG 9 UNITS IV CONT (16:00)
[2022-02-21 17:28] LABS: Basophils Percent Auto 0.1 % (0.2-1.2); Hematocrit 27.3 % (42.0-52.0); Hemoglobin 8.2 g/dL (14.0-18.0); Immature Granulocyte Absolute 0.17 K/mm3 (0.00-0.031); Immature Granulocyte Percent A 2.1 % (0-0.5); Lymphocytes Absolute Auto 0.33 K/mm3 (0.9-3.2); Mean Corpuscular Hemoglobin 30.7 pg (26-34); Mean Corpuscular Volume 102.2 fl (80-100); Mean Platelet Volume 11.3 fl (7.4-10.4); Monocytes Absolute Auto 0.6 K/mm3 (0.1-0.6); Monocytes Percent Auto 7.6 % (2.6-8.5); Neutrophils Absolute Auto 7.1 K/mm3 (1.3-6.7); Neutrophils Percent Auto 86.2 % (45.5-73.1); Nucleated Red Blood Cells Absolute Auto 0.2 K/mm3 (0.0-0.012); Nucleated Red Blood Cells Perc 2.3 % (0.0-0.2); Platelet Count Result 212 k/mm3 (150-375); Red Blood Count 2.67 M/mm3 (4.6-6.20); Red Cell Distribution Width 14.8 % (11.5-14.5); White Blood Count 8.3 K/mm3 (4.5-10.0)
[2022-02-21 17:33] LABS: Platelet Estimate Adequate (Adequate)
[2022-02-21 17:34] LABS: Ovalocytes 1+ (NORMAL); Schistocytes None Seen (NORMAL)
[2022-02-21 17:46] LABS: INR 1.7; Prothrombin Time 19.1 Seconds (11.1-14.7)
[2022-02-21 17:47] LABS: Partial Thromboplastin Time 36.8 SECONDS (22.3-36.8)
[2022-02-21 22:12] LABS: Partial Thromboplastin Time 61.9 SECONDS (22.3-36.8)
[2022-02-21] MEDS: HEPARIN SODIUM 5,000 UNITS/ML VIAL 3000 UNITS IV PUSH (22:26)
[2022-02-22] VITALS (19 sets, daily range): BP systolic 92–170; BP diastolic 55–92; PULSE 64–117; RESP 12–18; TEMP 36–36.7; O2SAT 98–100
[2022-02-22 06:08] LABS: Basophils Percent Auto 0.2 % (0.2-1.2); Eosinophils Percent Auto 0.1 % (0-4.4); Hematocrit 26.3 % (42.0-52.0); Hemoglobin 8.4 g/dL (14.0-18.0); Immature Granulocyte Absolute 0.48 K/mm3 (0.00-0.031); Immature Granulocyte Percent A 4.6 % (0-0.5); Lymphocytes Absolute Auto 0.59 K/mm3 (0.9-3.2); Lymphocytes Percent Auto 5.7 % (18.3-44.2); Mean Corpuscular HGB Conc 31.9 g/dl (32-36); Mean Corpuscular Hemoglobin 31.2 pg (26-34); Mean Corpuscular Volume 97.8 fl (80-100); Mean Platelet Volume 11.5 fl (7.4-10.4); Monocytes Absolute Auto 1.5 K/mm3 (0.1-0.6); Monocytes Percent Auto 14.4 % (2.6-8.5); Neutrophils Absolute Auto 7.8 K/mm3 (1.3-6.7); Nucleated Red Blood Cells Absolute Auto 0.6 K/mm3 (0.0-0.012); Nucleated Red Blood Cells Perc 5.3 % (0.0-0.2); Platelet Count Result 223 k/mm3 (150-375); Red Blood Count 2.69 M/mm3 (4.6-6.20); Red Cell Distribution Width 14.6 % (11.5-14.5); White Blood Count 10.4 K/mm3 (4.5-10.0)
[2022-02-22 06:33] LABS: Albumin Level 3.8 g/dL (3.5-5.1); Alkaline Phosphatase 145 U/L (38-126); Anion Gap 14 mmol/L (8-16); Bilirubin,Total 1.3 mg/dL (0.2-1.3); Blood Urea Nitrogen 60 mg/dL (9-20); CRP 5.5 mg/dL (<1.0); Calcium 7.9 mg/dL (8.4-10.2); Carbon Dioxide 27 mmol/L (22-30); Chloride 90 mmol/L (98-107); Estimated CRCL calculation 10 ml/min; Estimated Glomerular Filt Rate 10; Glucose 104 mg/dL (65-110); Potassium 5.9 mmol/L (3.4-5.0); Sodium 131 mmol/L (137-145)
--- NOTE | 2022-02-22 07:59 | PM.PNCARD ---
Progress Note: A&P Assessment and Plan (1) Systolic CHF: Code(s): I50.20 - Unspecified systolic (congestive) heart failure Status: Acute (2) A-fib: Qualifiers: Atrial fibrillation type: unspecified Qualified Code(s): I48.91 - Unspecified atrial fibrillation Code(s): I48.91 - Unspecified atrial fibrillation Status: Acute (3) Cardiomyopathy: Qualifiers: Cardiomyopathy type: unspecified Qualified Code(s): I42.9 - Cardiomyopathy, unspecified Code(s): I42.9 - Cardiomyopathy, unspecified Status: Acute Plan 86-year-old man with complex situation including heart failure with reduced ejection fraction, paroxysmal atrial fibrillation and end-stage renal disease on hemodialysis. He also is positive for coronavirus. In my opinion because of all of these comorbidities, lack of chest pain and advanced age a conservative approach to his case is preferred over in invasive approach. It is my opinion as well as the patient's that he catheterization is not recommended in this setting. We should make sure he is on guideline directed medical therapy for his heart failure with reduced ejection fraction. I am going to add some Entresto today. He certainly has plenty of blood pressure to work with. Amiodarone and metoprolol will also be continued because of his paroxysmal AFib. Because of the decision not to proceed with catheterization I will stop his heparin drip this morning. Chan Mcneil MD [facility] Subjective Date/time seen: Date of service: 02/22/22 07:59 Interval history: Follow-up visit in this 86-year-old man with: Heart failure with reduced ejection fraction and paroxysmal atrial fib also with end-stage renal disease on hemodialysis. Patient admitted to the hospital short of breath some mild volume overload also positive for coronavirus. In this setting there has been a troponin rise. Conversation by my partner regarding the possibility of angiography today. Discussed with the patient this morning he does not wish to have any procedures. He is not having any chest pain. Says that he has a cough this morning that is producing some blood-tinged mucus Exam Const: General: comfortable and no acute distress Other: Elderly white male supine in bed no distress HENMT: Mouth: Yes moist mucous membranes Eyes: Sclera: sclerae normal Neck: Neck: supple and no JVD Resp: Effort & Inspection: normal respiratory effort Auscultation: clear to auscultation bilaterally Cardio: Rate: regular rate Rhythm: regular rhythm Other: Patient has a grade 2/6 holosystolic murmur left sternal border and at the apex GI: GI Palp: Yes Soft to palpation Auscultation: normal bowel sounds Skin: General skin exam: normal color Neuro: Other: Alert and oriented x3 Extrem: Other: Mild symmetrical pretibial edema Objective Data Vital Signs Vital Signs: Vital Signs - 24 hr 02/21/22 08:00 02/21/22 09:25 02/21/22 09:07 Temperature 36.6 C Pulse Rate 73 Respiratory Rate 16 Blood Pressure 158/75 H Pulse Oximetry 98 Oxygen Delivery Room Air Room Air 02/21/22 08:00 02/21/22 10:00 02/21/22 08:00 Temperature Pulse Rate 66 73 Respiratory Rate Blood Pressure Pulse Oximetry Oxygen Delivery Room Air 02/21/22 12:00 02/21/22 12:00 02/21/22 14:00 Temperature 36.4 C Pulse Rate 80 71 68 Respiratory Rate 20 Blood Pressure 176/87 H Pulse Oximetry 100 Oxygen Delivery 02/21/22 12:00 02/21/22 16:00 02/21/22 16:00 Temperature Pulse Rate 66 Respiratory Rate Blood Pressure Pulse Oximetry Oxygen Delivery Room Air Room Air 02/21/22 16:00 02/21/22 18:00 02/21/22 20:00 Temperature 36.5 C 36.3 C L Pulse Rate 69 72 82 Respiratory Rate 16 18 Blood Pressure 149/72 H 147/80 H Pulse Oximetry 100 99 Oxygen Delivery 02/21/22 20:00 02/21/22 22:00 02/22/22 00:00 Temperature Pulse Rate 73 65 81 Respi
[2022-02-22 08:32] LABS: Partial Thromboplastin Time 160.6 SECONDS (22.3-36.8)
[2022-02-22] MEDS: calcitrioL 0.25 MCG CAPSULE PO (09:24)
[2022-02-22] MEDS: CHOLECALCIFEROL 1,000 UNITS TABLET 2000 UNITS PO (09:24)
[2022-02-22] MEDS: VITAMIN B CMPLX/VIT C/FOLIC AC 1 CAPSULE 1 CAP PO (09:25)
[2022-02-22] MEDS: AMIODARONE HCL 200 MG TABLET PO (09:25)
[2022-02-22] MEDS: guaiFENesin 12 HR 600 MG TABCR PO ×2 (09:25→20:10)
[2022-02-22] MEDS: VENLAFAXINE HCL 75 MG TABLET PO ×2 (09:25→17:04)
[2022-02-22] MEDS: METOPROLOL SUCCINATE EXT REL 25 MG TABCR PO (09:26)
[2022-02-22] MEDS: allopurinoL 150 MG TABLET BY MOUTH (09:26)
[2022-02-22] MEDS: SEVELAMER CARBONATE 800 MG TABLET PO ×2 (09:26→17:04)
[2022-02-22] MEDS: SACUBITRIL/VALSARTAN 24-26 MG TABLET 1 TAB PO ×2 (10:30→20:10)
[2022-02-22 10:31] LABS: Alanine Aminotransferase 1488 U/L (6-50); Aspartate Amino Transferase 2746 U/L (17-59); Lactate Dehydrogenase 2569 U/L (120-246)
--- NOTE | 2022-02-22 13:15 | PCPTNOTE ---
The patient treatment was not able to be completed due to patient being in dialysis. Will continue per PT plan of care.
[2022-02-22] MEDS: EPOETIN ALFA-EPBX 4,000 UNITS/ML VIAL 4000 UNITS SUB-Q (13:37)
--- NOTE | 2022-02-22 15:11 | PM.PNNEP ---
Progress Note: A&P Assessment and Plan (1) ESRD (end stage renal disease) on dialysis: Code(s): N18.6 - End stage renal disease; Z99.2 - Dependence on renal dialysis Status: Acute Assessment and Plan: End-stage renal disease Hypertensive renal disease with renal failure Hyperkalemia Hyponatremia Fluid overload CHF as a result next item atrial fibrillation with rapid ventricular response anemia chronic kidney disease secondary hyperparathyroidism Plan -hemodialysis supervised -tolerated 1 L of fluid today -in more comfortable with breathing today -needs to increase activity -continue to follow-up for ESRD and related needs -discussed with track dresser -dialysis next rescheduled for Friday. Subjective Date/time seen: 02/22/22 15:11 Follow-up end-stage renal disease Seen and examined in hemodialysis room Dialysis supervised Patient feels better. Blood flow 400, ultrafiltration of 1 L, tolerated treatment today. Exam Narrative: Seen and examined in hemodialysis, comfortable with his breathing, left upper arm AV graft used for dialysis, no problems with flow, patient is more awake and alert, more comfortable with breathing at rest, there is no lower extremity swelling, no tremors, no cyanosis, still on the weaker side globally, negative other pertinent physical findings of note Objective Data Vital Signs Vital Signs: Vital Signs - 24 hr 02/21/22 16:00 02/21/22 16:00 02/21/22 16:00 Temperature 36.5 C Pulse Rate 66 69 Respiratory Rate 16 Blood Pressure 149/72 H Pulse Oximetry 100 Oxygen Delivery Room Air 02/21/22 18:00 02/21/22 20:00 02/21/22 20:00 Temperature 36.3 C L Pulse Rate 72 82 73 Respiratory Rate 18 Blood Pressure 147/80 H Pulse Oximetry 99 Oxygen Delivery 02/21/22 22:00 02/22/22 00:00 02/22/22 00:39 Temperature 36.4 C L Pulse Rate 65 81 74 Respiratory Rate 18 Blood Pressure 149/72 H Pulse Oximetry 99 Oxygen Delivery 02/22/22 02:00 02/22/22 04:00 02/22/22 04:00 Temperature 36.3 C L Pulse Rate 73 73 67 Respiratory Rate 18 Blood Pressure 170/88 H Pulse Oximetry 100 Oxygen Delivery 02/22/22 06:00 02/22/22 08:00 02/22/22 08:00 Temperature 36.6 C Pulse Rate 86 70 Respiratory Rate 18 Blood Pressure 149/70 H Pulse Oximetry 98 Oxygen Delivery Room Air 02/22/22 11:39 02/22/22 11:45 02/22/22 12:00 Temperature 36.6 C Pulse Rate 74 64 76 Respiratory Rate 12 Blood Pressure 156/87 H 149/80 H 133/90 Pulse Oximetry Oxygen Delivery 02/22/22 12:30 02/22/22 13:00 02/22/22 08:00 Temperature Pulse Rate 78 109 H 74 Respiratory Rate Blood Pressure 92/55 L 126/86 Pulse Oximetry Oxygen Delivery 02/22/22 12:00 02/22/22 10:00 02/22/22 12:00 Temperature Pulse Rate 73 72 Respiratory Rate Blood Pressure Pulse Oximetry Oxygen Delivery Room Air 02/22/22 14:00 Temperature Pulse Rate 106 H Respiratory Rate Blood Pressure Pulse Oximetry Oxygen Delivery Intake/Output Intake/Output: Intake & Output 02/19/22 02/20/22 02/21/22 02/22/22 23:59 23:59 23:59 23:59 Intake Total 0 1290 1890 180 Output Total 1360 1500 Balance -1360 -210 1890 180 Meds/Results Medications: Active Medications Generic Name Dose Route Start Last Admin Trade Name Freq PRN Reason Stop Dose Admin Albuterol 2 puff 02/19/22 09:42 Albuterol Sulfate (*Sp) Aerosol 1 Puff INHALATION Q6HRT PRN Shortness Of Breath Allopurinol 150 mg 02/20/22 09:00 02/22/22 09:26 Allopurinol 150 Mg Tablet BY MOUTH 150 mg DAILY LUIS MIGUEL Administration Amiodarone HCl 200 mg 02/20/22 09:00 02/22/22 09:25 Amiodarone Hcl 200 Mg Tablet PO 200 mg DAILY LUIS MIGUEL Administration Apixaban 2.5 mg 02/20/22 09:00 Apixaban 2.5 Mg Tablet PO BID [facility] Atorvastatin Calcium 40 mg 02/20/22 09:00 02/20/22 08:48 Atorvastatin 40 Mg Tablet PO 40 mg DAILY [facility]
--- NOTE | 2022-02-22 16:04 | PM.IMPN ---
Progress Note: A&P Assessment and Plan (1) Acute respiratory failure with hypoxia: Code(s): J96.01 - Acute respiratory failure with hypoxia Status: Acute Assessment and Plan: Presented from nursing facility with sudden onset of shortness of breath and O2 sats 56% on room air. Suspect multifactorial in etiology secondary to hypervolemia from missed dialysis, CHF, COVID-19. CXR revealed diffuse lung disease consistent with pulmonary edema versus pneumonia. He was able to be weaned from BiPAP and is now maintaining adequate O2 sats on room air. Continue supplemental oxygen as needed with goal sats 92% or above. (2) Flash pulmonary edema: Code(s): J81.0 - Acute pulmonary edema Status: Acute Assessment and Plan: Likely secondary to missed dialysis. CXR reveals findings of pulmonary edema and small left pleural effusion. Nephrology consulted for dialysis management and patient had improvement in volume status and respiratory symptoms following hemodialysis. Continue to monitor volume status and continue with dialysis schedule (3) COVID-19: Code(s): U07.1 - COVID-19 Status: Acute Assessment and Plan: COVID positive on 02/17/2022. Patient received 2 doses of steroids at nursing facility. Will continue with IV dexamethasone during admission. Patient not a candidate for remdesivir given his renal failure. Supportive care will be provided including bronchodilators, expectorants, incentive spirometry, Cornet. Implement isolation precautions. Patient completed COVID vaccination and booster. Inflammatory markers are elevated and will be monitored. (4) Systolic CHF: Code(s): I50.20 - Unspecified systolic (congestive) heart failure Status: Acute Assessment and Plan: Likely contributing to acute respiratory failure. Last echocardiogram revealed left ventricular systolic function with moderately to severely reduced EF of 35-40%. BNP is >58160. volume status improved with hemodialysis. Continue to monitor volume status with accurate I&Os. repeat echocardiogram on 02/21 revealed EF of 30 defer 35% with grade 2 diastolic dysfunction. Continue carvedilol. started on Entresto per Cardiology recommendations today. (5) Elevated troponin: Code(s): R77.8 - Other specified abnormalities of plasma proteins Status: Acute Assessment and Plan: Troponin elevated from baseline with peak 5.58. initial documentation states patient complained of chest pressure, however patient denies any episodes of chest pain to me. EKG reviewed. Appreciate cardiology consultation and recommendations. Concern for ACS given troponin rise. Echocardiogram Revealed akinesis and hypokinesis of apical and septal wall. patient initially started on heparin drip and cardiac catheterization was considered, however today decision made to proceed with conservative management due to comorbidities and advanced age. Heparin drip discontinued and patient restarted on low-dose Eliquis. (6) ESRD on dialysis: Code(s): N18.6 - End stage renal disease; Z99.2 - Dependence on renal dialysis Status: Acute Assessment and Plan: Maintained on hemodialysis on MWF. Missed dialysis on 02/18 due to illness. Seen in consultation this admission by Nephrology to manage routine dialysis. Patient dialyzed on 02/19 and 02/20. dialysis today (7) Hyperkalemia: Code(s): E87.5 - Hyperkalemia Status: Acute Assessment and Plan: Potassium elevated to 6.1 on presentation, secondary to renal failure/ missed dialysis. Potassium improved following IV calcium gluconate and sodium bicarbonate followed by dialysis. Potassium levels elevated today, however will be managed during dialysis. monitor BMP (8) Transaminitis: Code(s): R74.01 - Elevation of levels of liver transaminase levels Status: Acute Assessment and Plan: LFTs with sharp increase.
[2022-02-22] MEDS: APIXABAN 2.5 MG TABLET PO (17:04)
--- NOTE | 2022-02-22 21:22 | PC.NURSE ---
2100 RECEIVED PT BY TRANSFER VIA BED FROM IMU.
[2022-02-23 05:00] VITALS: BP 138/72; PULSE 70; RESP 12; TEMP 36.4; O2SAT 96
[2022-02-23 05:08] LABS: Hematocrit 25.7 % (42.0-52.0); Hemoglobin 8.2 g/dL (14.0-18.0); Mean Corpuscular HGB Conc 31.9 g/dl (32-36); Mean Corpuscular Hemoglobin 30.8 pg (26-34); Mean Corpuscular Volume 96.6 fl (80-100); Mean Platelet Volume 11.6 fl (7.4-10.4); Platelet Count Result 215 k/mm3 (150-375); Red Blood Count 2.66 M/mm3 (4.6-6.20); Red Cell Distribution Width 14.6 % (11.5-14.5); White Blood Count 10.8 K/mm3 (4.5-10.0)
[2022-02-23 05:37] LABS: Albumin Level 3.3 g/dL (3.5-5.1); Alkaline Phosphatase 131 U/L (38-126); Anion Gap 10 mmol/L (8-16); Bilirubin,Total 1.1 mg/dL (0.2-1.3); Blood Urea Nitrogen 47 mg/dL (9-20); CRP 4.6 mg/dL (<1.0); Calcium 7.8 mg/dL (8.4-10.2); Carbon Dioxide 29 mmol/L (22-30); Chloride 94 mmol/L (98-107); Estimated CRCL calculation 12 ml/min; Estimated Glomerular Filt Rate 13; Glucose 103 mg/dL (65-110); Lactate Dehydrogenase 809 U/L (120-246); Potassium 4.5 mmol/L (3.4-5.0); Sodium 133 mmol/L (137-145)
[2022-02-23 05:38] LABS: Alanine Aminotransferase 988 U/L (6-50); Aspartate Amino Transferase 1331 U/L (17-59)
[2022-02-23 07:48] LABS: Creatine Kinase 130 U/L (55-170)
[2022-02-23] MEDS: MORPHINE SULFATE (*CRX) 4 MG/ML INJ IV PUSH (09:29)
[2022-02-23 09:30] VITALS: PULSE 70
[2022-02-23] MEDS: APIXABAN 2.5 MG TABLET PO ×2 (09:30→18:53)
[2022-02-23] MEDS: SACUBITRIL/VALSARTAN 24-26 MG TABLET 1 TAB PO ×2 (09:30→20:04)
[2022-02-23] MEDS: SEVELAMER CARBONATE 800 MG TABLET PO ×2 (09:30→18:53)
[2022-02-23] MEDS: allopurinoL 150 MG TABLET BY MOUTH (09:30)
[2022-02-23] MEDS: METOPROLOL SUCCINATE EXT REL 25 MG TABCR PO (09:30)
[2022-02-23] MEDS: VITAMIN B CMPLX/VIT C/FOLIC AC 1 CAPSULE 1 CAP PO (09:30)
[2022-02-23] MEDS: AMIODARONE HCL 200 MG TABLET PO (09:30)
[2022-02-23] MEDS: calcitrioL 0.25 MCG CAPSULE PO (09:30)
[2022-02-23] MEDS: VENLAFAXINE HCL 75 MG TABLET PO ×2 (09:30→18:53)
[2022-02-23] MEDS: guaiFENesin 12 HR 600 MG TABCR PO ×2 (09:30→20:04)
[2022-02-23] MEDS: CHOLECALCIFEROL 1,000 UNITS TABLET 2000 UNITS PO (09:30)
--- NOTE | 2022-02-23 09:54 | PCOTNOTE ---
Attempted to see pt for Occupational Therapy treatment this A.M. Pt refused to participate in therapy session today due to increase nausea and back pain that was addressed by RN earlier. Pt was offered to complete any self care tasks or strengthening, pt continues to decline. Pt was educated on the importance of continued participation in therapy for independence in daily occupations with pt verbally acknowledging statement, however, pt refused to participate in tasks or get out of bed. Will continue per poc duration/frequency tomorrow.
--- NOTE | 2022-02-23 10:14 | PM.IMPN ---
Progress Note: A&P Assessment and Plan (1) Acute respiratory failure with hypoxia: Code(s): J96.01 - Acute respiratory failure with hypoxia Status: Acute Assessment and Plan: Presented from nursing facility with sudden onset of shortness of breath and O2 sats 56% on room air. Suspect multifactorial in etiology secondary to hypervolemia from missed dialysis, CHF, COVID-19. CXR revealed diffuse lung disease consistent with pulmonary edema versus pneumonia. He was able to be weaned from BiPAP and is now maintaining adequate O2 sats on room air. Continue supplemental oxygen as needed with goal sats 92% or above. (2) Flash pulmonary edema: Code(s): J81.0 - Acute pulmonary edema Status: Acute Assessment and Plan: Likely secondary to missed dialysis. CXR reveals findings of pulmonary edema and small left pleural effusion. Nephrology consulted for dialysis management and patient had improvement in volume status and respiratory symptoms following hemodialysis. Continue to monitor volume status and continue with dialysis schedule (3) COVID-19: Code(s): U07.1 - COVID-19 Status: Acute Assessment and Plan: COVID positive on 02/17/2022. Patient received 2 doses of steroids at nursing facility. Will continue with IV dexamethasone during admission. Patient not a candidate for remdesivir given his renal failure. Supportive care will be provided including bronchodilators, expectorants, incentive spirometry, Cornet. Implement isolation precautions. Patient completed COVID vaccination and booster. Inflammatory markers are elevated and will be monitored. (4) Systolic CHF: Code(s): I50.20 - Unspecified systolic (congestive) heart failure Status: Acute Assessment and Plan: Likely contributing to acute respiratory failure. Last echocardiogram revealed left ventricular systolic function with moderately to severely reduced EF of 35-40%. BNP is >30072. volume status improved with hemodialysis. Continue to monitor volume status with accurate I&Os. repeat echocardiogram on 02/21 revealed EF of 30-35% with grade 2 diastolic dysfunction. Continue carvedilol. started on Entresto per Cardiology recommendations on 02/22. (5) Elevated troponin: Code(s): R77.8 - Other specified abnormalities of plasma proteins Status: Acute Assessment and Plan: Troponin elevated from baseline with peak 5.58. initial documentation states patient complained of chest pressure, however patient denies any episodes of chest pain to me. EKG reviewed. Appreciate cardiology consultation and recommendations. Concern for ACS given troponin rise. Echocardiogram Revealed akinesis and hypokinesis of apical and septal wall. patient initially started on heparin drip and cardiac catheterization was considered, however today decision made to proceed with conservative management due to comorbidities and advanced age. Heparin drip discontinued 02/22 and patient restarted on low-dose Eliquis. (6) ESRD on dialysis: Code(s): N18.6 - End stage renal disease; Z99.2 - Dependence on renal dialysis Status: Acute Assessment and Plan: Maintained on hemodialysis on MWF. Missed dialysis on 02/18 due to illness. Seen in consultation this admission by Nephrology to manage routine dialysis. Dialyzed yesterday. Next dialysis Sunday 02/25 (7) Hyperkalemia: Code(s): E87.5 - Hyperkalemia Status: Acute Assessment and Plan: Potassium elevated to 6.1 on presentation, secondary to renal failure/ missed dialysis. Potassium improved following IV calcium gluconate and sodium bicarbonate followed by dialysis. Potassium levels stable today. Monitor BMP (8) Transaminitis: Code(s): R74.01 - Elevation of levels of liver transaminase levels Status: Acute Assessment and Plan: LFTs with sharp increase. AST >2000 ALT >1000. Total bilirubin and alk-ph
--- NOTE | 2022-02-23 11:37 | PCPTNOTE ---
Patient refused treatment this session due to patient wanting to rest at this time. Encouraged patient to participate, however patient continued to refuse.
[2022-02-23 14:00] VITALS: BP 149/83; PULSE 73; RESP 16; TEMP 36.4; O2SAT 98
--- NOTE | 2022-02-23 14:51 | PCOTNOTE ---
A 2nd attempt was made to have pt participate in therapy session, however, pt was unavailable due to being on the phone and still working on lunch. When therapist entered room, pt states Not today when asked about participating in therapy session. Pt was re educated on purpose and benefits of continued therapy for independence. Will continue per poc duration/frequency tomorrow.
[2022-02-23 20:13] VITALS: BP 137/75; PULSE 68; RESP 12; TEMP 36.6; O2SAT 95
[2022-02-24 07:17] LABS: Hematocrit 25.9 % (42.0-52.0); Hemoglobin 8.3 g/dL (14.0-18.0); Mean Corpuscular Hemoglobin 30.6 pg (26-34); Mean Corpuscular Volume 95.6 fl (80-100); Mean Platelet Volume 11.9 fl (7.4-10.4); Platelet Count Result 234 k/mm3 (150-375); Red Blood Count 2.71 M/mm3 (4.6-6.20); Red Cell Distribution Width 14.7 % (11.5-14.5); White Blood Count 18.6 K/mm3 (4.5-10.0)
[2022-02-24 07:27] LABS: Alanine Aminotransferase 669 U/L (6-50); Albumin Level 3.6 g/dL (3.5-5.1); Alkaline Phosphatase 124 U/L (38-126); Anion Gap 14 mmol/L (8-16); Aspartate Amino Transferase 709 U/L (17-59); Bilirubin,Total 1.5 mg/dL (0.2-1.3); Blood Urea Nitrogen 69 mg/dL (9-20); Calcium 7.8 mg/dL (8.4-10.2); Carbon Dioxide 25 mmol/L (22-30); Chloride 90 mmol/L (98-107); Estimated CRCL calculation 9 ml/min; Estimated Glomerular Filt Rate 9; Glucose 110 mg/dL (65-110); Potassium 5.1 mmol/L (3.4-5.0); Sodium 129 mmol/L (137-145)
[2022-02-24 07:35] LABS: Lactate Dehydrogenase 702 U/L (120-246)
[2022-02-24 08:14] LABS: Bilirubin Indirect 0.6 mg/dL (0-1.1)
[2022-02-24 08:36] VITALS: PULSE 68
[2022-02-24] MEDS: SACUBITRIL/VALSARTAN 24-26 MG TABLET 1 TAB PO ×2 (08:36→20:11)
[2022-02-24] MEDS: AMIODARONE HCL 200 MG TABLET PO (08:36)
[2022-02-24] MEDS: VITAMIN B CMPLX/VIT C/FOLIC AC 1 CAPSULE 1 CAP PO (08:36)
[2022-02-24 08:37] VITALS: PULSE 68
[2022-02-24] MEDS: SEVELAMER CARBONATE 800 MG TABLET PO ×2 (08:37→17:47)
[2022-02-24] MEDS: METOPROLOL SUCCINATE EXT REL 25 MG TABCR PO (08:37)
[2022-02-24] MEDS: calcitrioL 0.25 MCG CAPSULE PO (08:37)
[2022-02-24] MEDS: APIXABAN 2.5 MG TABLET PO ×2 (08:37→17:47)
[2022-02-24] MEDS: CHOLECALCIFEROL 1,000 UNITS TABLET 2000 UNITS PO (08:37)
[2022-02-24] MEDS: VENLAFAXINE HCL 75 MG TABLET PO ×2 (08:37→17:47)
[2022-02-24] MEDS: guaiFENesin 12 HR 600 MG TABCR PO ×2 (08:37→20:11)
[2022-02-24] MEDS: allopurinoL 150 MG TABLET BY MOUTH (08:37)
--- NOTE | 2022-02-24 13:47 | PM.IMPN ---
Progress Note: A&P Assessment and Plan (1) Acute respiratory failure with hypoxia: Code(s): J96.01 - Acute respiratory failure with hypoxia Status: Acute Assessment and Plan: Presented from nursing facility with sudden onset of shortness of breath and O2 sats 56% on room air. Suspect multifactorial in etiology secondary to hypervolemia from missed dialysis, CHF, COVID-19. CXR revealed diffuse lung disease consistent with pulmonary edema versus pneumonia. He was able to be weaned from BiPAP and is now maintaining adequate O2 sats on room air. Continue supplemental oxygen as needed with goal sats 92% or above. (2) Flash pulmonary edema: Code(s): J81.0 - Acute pulmonary edema Status: Acute Assessment and Plan: Likely secondary to missed dialysis. CXR reveals findings of pulmonary edema and small left pleural effusion. Nephrology consulted for dialysis management and patient had improvement in volume status and respiratory symptoms following hemodialysis. Continue to monitor volume status and continue with dialysis schedule (3) COVID-19: Code(s): U07.1 - COVID-19 Status: Acute Assessment and Plan: COVID positive on 02/17/2022. Patient received 2 doses of steroids at nursing facility. Completed 5 days of IV dexamethasone, discontinued today as patient has not had ongoing oxygen requirement. Patient not a candidate for remdesivir given his renal failure. Supportive care will be provided including bronchodilators, expectorants, incentive spirometry, Cornet. Implement isolation precautions. Patient completed COVID vaccination and booster. Inflammatory markers are elevated and will be monitored. (4) Systolic CHF: Code(s): I50.20 - Unspecified systolic (congestive) heart failure Status: Acute Assessment and Plan: Likely contributing to acute respiratory failure. Last echocardiogram revealed left ventricular systolic function with moderately to severely reduced EF of 35-40%. BNP is >10246. volume status improved with hemodialysis. Continue to monitor volume status with accurate I&Os. repeat echocardiogram on 02/21 revealed EF of 30-35% with grade 2 diastolic dysfunction. Continue carvedilol. started on Entresto per Cardiology recommendations on 02/22. (5) Elevated troponin: Code(s): R77.8 - Other specified abnormalities of plasma proteins Status: Acute Assessment and Plan: Troponin elevated from baseline with peak 5.58. initial documentation states patient complained of chest pressure, however patient denies any episodes of chest pain to me. EKG reviewed. Appreciate cardiology consultation and recommendations. Concern for ACS given troponin rise. Echocardiogram Revealed akinesis and hypokinesis of apical and septal wall. patient initially started on heparin drip and cardiac catheterization was considered, however today decision made to proceed with conservative management due to comorbidities and advanced age. Heparin drip discontinued 02/22 and patient restarted on low-dose Eliquis. (6) ESRD on dialysis: Code(s): N18.6 - End stage renal disease; Z99.2 - Dependence on renal dialysis Status: Acute Assessment and Plan: Maintained on hemodialysis on MWF. Missed dialysis on 02/18 due to illness. Seen in consultation this admission by Nephrology to manage routine dialysis. Dialyzed yesterday. Next dialysis Sunday 02/25 (7) Hyperkalemia: Code(s): E87.5 - Hyperkalemia Status: Acute Assessment and Plan: Potassium elevated to 6.1 on presentation, secondary to renal failure/ missed dialysis. Potassium improved following IV calcium gluconate and sodium bicarbonate followed by dialysis. Potassium 5.1 today and patient is scheduled for dialysis tomorrow. Monitor BMP (8) Transaminitis: Code(s): R74.01 - Elevation of levels of liver transaminase levels Status: Acute Asse
[2022-02-24 14:48] VITALS: BP 152/82; PULSE 72; RESP 18; TEMP 36.6; O2SAT 100
[2022-02-24 20:52] VITALS: BP 159/77; PULSE 72; RESP 16; TEMP 36.9; O2SAT 93
[2022-02-25] VITALS (16 sets, daily range): BP systolic 109–195; BP diastolic 66–103; PULSE 65–117; RESP 18–24; TEMP 35.8–36.7; O2SAT 97–100
[2022-02-25] MEDS: MORPHINE SULFATE (*CRX) 4 MG/ML INJ IV PUSH (04:41)
[2022-02-25 05:57] LABS: Hematocrit 30.6 % (42.0-52.0); Hemoglobin 9.6 g/dL (14.0-18.0); Mean Corpuscular HGB Conc 31.4 g/dl (32-36); Mean Corpuscular Hemoglobin 32.1 pg (26-34); Mean Corpuscular Volume 102.3 fl (80-100); Mean Platelet Volume 12.2 fl (7.4-10.4); Platelet Count Result 276 k/mm3 (150-375); Red Blood Count 2.99 M/mm3 (4.6-6.20); Red Cell Distribution Width 16.8 % (11.5-14.5)
[2022-02-25 06:02] LABS: Alanine Aminotransferase 593 U/L (6-50); Albumin Level 3.7 g/dL (3.5-5.1); Alkaline Phosphatase 130 U/L (38-126); Anion Gap 19 mmol/L (8-16); Aspartate Amino Transferase 578 U/L (17-59); Bilirubin,Total 2.1 mg/dL (0.2-1.3); Blood Urea Nitrogen 88 mg/dL (9-20); Calcium 7.7 mg/dL (8.4-10.2); Carbon Dioxide 22 mmol/L (22-30); Chloride 91 mmol/L (98-107); Glucose 94 mg/dL (65-110); Lactate Dehydrogenase 889 U/L (120-246); Potassium 5.8 mmol/L (3.4-5.0); Sodium 132 mmol/L (137-145)
[2022-02-25 06:09] LABS: Estimated CRCL calculation 8 ml/min; Estimated Glomerular Filt Rate 8
[2022-02-25 06:44] LABS: Band Neutrophils Percent 1 % (0-6); Lymphocytes Absolute Manual 1.04 K/mm3 (1.1-4.5); Metamyelocytes Percent 1 %; Monocytes Absolute Manual 3.64 K/mm3 (0.1-0.90); Monocytes Percent Manual 14 % (3-9); Neutrophils Absolute Manual 21.06 K/mm3 (1.3-6.7); Neutrophils Percent Manual 80 % (46-73); Nucleated Red Blood Cells 16 %; Total Cells Counted 100
[2022-02-25 06:46] LABS: Hypochromasia 2+ (NORMAL); Platelet Estimate Adequate (Adequate)
[2022-02-25 06:47] LABS: Anisocytosis 2+ (NORMAL); Ovalocytes 1+ (NORMAL); Poikilocytosis 2+ (NORMAL); Schistocytes None Seen (NORMAL); Tear Drop Cells 1+ (NORMAL)
--- NOTE | 2022-02-25 10:10 | PC.NURSE ---
pt to dialysis via bed
--- NOTE | 2022-02-25 10:21 | PCPTNOTE ---
The patient treatment was not able to be completed this morning on 02/25/22 due to patient out of room for dialysis. Will plan to continue treatment per plan of care.
[2022-02-25 10:45] LABS: Procalcitonin 14.2 ng/mL
--- NOTE | 2022-02-25 13:01 | PM.IMPN ---
Progress Note: A&P Assessment and Plan (1) Sepsis: Code(s): A41.9 - Sepsis, unspecified organism Status: Acute Assessment and Plan: Patient septic today evident by leukocytosis, tachypnea, tachycardia. WBC increased to 26.0 today. Etiology not clear at this time. Repeat blood cultures obtained, await results. Urine culture. MRSA nares screen. Procalcitonin elevated, however may be elevated given ESRD. Repeat CXR with increased left lower lobe atelectasis/consolidation and patchy bilateral pulmonary opacities. Concern for possible aspiration pneumonia. Begin vancomycin and cefepime. Repeat CBC in 12 hours to assess for improvement. (2) Acute respiratory failure with hypoxia: Code(s): J96.01 - Acute respiratory failure with hypoxia Status: Acute Assessment and Plan: Presented from nursing facility with sudden onset of shortness of breath and O2 sats 56% on room air. Suspect multifactorial in etiology secondary to hypervolemia from missed dialysis, CHF, COVID-19. CXR revealed diffuse lung disease consistent with pulmonary edema versus pneumonia. He was able to be weaned from BiPAP and is now maintaining adequate O2 sats on room air. Continue supplemental oxygen as needed with goal sats 92% or above. (3) Flash pulmonary edema: Code(s): J81.0 - Acute pulmonary edema Status: Acute Assessment and Plan: Likely secondary to missed dialysis. CXR reveals findings of pulmonary edema and small left pleural effusion. Nephrology consulted for dialysis management and patient had improvement in volume status and respiratory symptoms following hemodialysis. Continue to monitor volume status and continue with dialysis schedule (4) COVID-19: Code(s): U07.1 - COVID-19 Status: Acute Assessment and Plan: COVID positive on 02/17/2022. Patient received 2 doses of steroids at nursing facility. Completed 5 days of IV dexamethasone, discontinued on 02/24 fat as he had no ongoing oxygen requirement. Patient not a candidate for remdesivir given his renal failure. Supportive care provided including bronchodilators, expectorants, incentive spirometry, Cornet. Implement isolation precautions. Patient completed COVID vaccination and booster. Inflammatory markers remain elevated (5) Systolic CHF: Code(s): I50.20 - Unspecified systolic (congestive) heart failure Status: Acute Assessment and Plan: Likely contributing to acute respiratory failure. Last echocardiogram revealed left ventricular systolic function with moderately to severely reduced EF of 35-40%. BNP is >21522. volume status improved with hemodialysis. Continue to monitor volume status with accurate I&Os. repeat echocardiogram on 02/21 revealed EF of 30-35% with grade 2 diastolic dysfunction. Continue carvedilol. started on Entresto per Cardiology recommendations on 02/22. (6) Elevated troponin: Code(s): R77.8 - Other specified abnormalities of plasma proteins Status: Acute Assessment and Plan: Troponin elevated from baseline with peak 5.58. initial documentation states patient complained of chest pressure, however patient denies any episodes of chest pain to me. EKG reviewed. Appreciate cardiology consultation and recommendations. Concern for ACS given troponin rise. Echocardiogram revealed akinesis and hypokinesis of apical and septal wall. patient initially started on heparin drip and cardiac catheterization was considered, however decision was made to proceed with conservative management due to comorbidities and advanced age. Heparin drip discontinued 02/22 and patient restarted on low-dose Eliquis. (7) ESRD on dialysis: Code(s): N18.6 - End stage renal disease; Z99.2 - Dependence on renal dialysis Status: Acute Assessment and Plan: Maintained on hemodialysis on MWF. Missed dialysis on 02/18 due to illness. Seen in consultation this admiss
--- NOTE | 2022-02-25 13:10 | PM.PNNEP ---
Progress Note: A&P Assessment and Plan (1) ESRD (end stage renal disease) on dialysis: Code(s): N18.6 - End stage renal disease; Z99.2 - Dependence on renal dialysis Status: Acute Assessment and Plan: End-stage renal disease Hypertensive renal disease with renal failure Hyperkalemia Hyponatremia Fluid overload CHF as a result next item atrial fibrillation with rapid ventricular response anemia chronic kidney disease secondary hyperparathyroidism Plan -hemodialysis supervised -tolerating 2 L of fluid today -still not back to his baseline energy and strength -increase nutrition and activity -antibiotics with primary care team Subjective Date/time seen: 02/25/22 13:10 End-stage renal disease follow-up Seen and examined on hemodialysis Dialysis supervised 02/26/2020 to Reportedly confused during the course of the treatment Review of Systems Review of Systems: Indicates is not feeling that well, otherwise nonspecific Exam Narrative: Seen and examined on hemodialysis, hemodialysis supervised, av shunt in use, comfortable with breathing, dry oral mucosa, looks dry physically, no edema, regular rate rhythm, lungs clear, soft abdomen Objective Data Vital Signs Vital Signs: Vital Signs - 24 hr 02/24/22 14:48 02/24/22 20:52 02/24/22 20:00 Temperature 36.6 C 36.9 C Pulse Rate 72 72 Respiratory Rate 18 16 Blood Pressure 152/82 H 159/77 H Pulse Oximetry 100 93 Oxygen Delivery Room Air 02/25/22 04:52 02/25/22 06:46 02/25/22 10:14 Temperature 36.7 C Pulse Rate 72 82 Respiratory Rate 24 H 20 Blood Pressure 157/75 H 157/66 H Pulse Oximetry 98 Oxygen Delivery 02/25/22 10:05 02/25/22 10:30 02/25/22 10:50 Temperature 36.5 C Pulse Rate 69 65 66 Respiratory Rate 22 H Blood Pressure 166/91 H 150/83 H 145/82 H Pulse Oximetry Oxygen Delivery 02/25/22 11:10 02/25/22 11:30 02/25/22 11:50 Temperature Pulse Rate 66 81 102 H Respiratory Rate Blood Pressure 151/73 H 195/88 H 121/103 H Pulse Oximetry Oxygen Delivery 02/25/22 12:10 02/25/22 12:30 02/25/22 12:50 Temperature Pulse Rate 109 H 117 H 104 H Respiratory Rate Blood Pressure 113/92 H 145/97 H 118/87 Pulse Oximetry Oxygen Delivery Intake/Output Intake/Output: Intake & Output 02/22/22 02/23/22 02/24/22 02/25/22 23:59 23:59 23:59 23:59 Intake Total 720 730 630 50 Output Total 1100 Balance -380 730 630 50 Meds/Results Medications: Active Medications Generic Name Dose Route Start Last Admin Trade Name Freq PRN Reason Stop Dose Admin Albuterol 2 puff 02/19/22 09:42 Albuterol Sulfate (*Sp) Aerosol 1 Puff INHALATION Q6HRT PRN Shortness Of Breath Allopurinol 150 mg 02/20/22 09:00 02/24/22 08:37 Allopurinol 150 Mg Tablet BY MOUTH 150 mg DAILY LUIS MIGUEL Administration Amiodarone HCl 200 mg 02/20/22 09:00 02/24/22 08:36 Amiodarone Hcl 200 Mg Tablet PO 200 mg DAILY LUIS MIGUEL Administration Apixaban 2.5 mg 02/20/22 09:00 02/24/22 17:47 Apixaban 2.5 Mg Tablet PO 2.5 mg BID LUIS MIGUEL Administration Calcitriol 0.25 mcg 02/20/22 09:00 02/24/22 08:37 Calcitriol 0.25 Mcg Capsule PO 0.25 mcg DAILY LUIS MIGUEL Administration Epoetin Julio-epbx 4,000 units 02/20/22 20:00 02/22/22 13:37 Epoetin Julio-Epbx 4,000 Units/Ml Vial SUB-Q 4,000 units [id number] LUIS MIGUEL Administration Guaifenesin 600 mg 02/19/22 10:20 02/24/22 20:11 Guaifenesin 12 Hr 600 Mg Tabcr PO 600 mg Q12HR LUIS MIGUEL Administration Vancomycin HCl 1,250 mg in 250 mls @ 200 mls/hr 02/25/22 10:00 Vancomycin 1,250 Mg/D5w 250 Ml IVPB PRN LUIS MIGUEL Cefepime HCl 0.5 gm/ Dextrose 50 mls @ 100 mls/hr 02/26/22 09:00 IVPB Q24H LUIS MIGUEL Metoprolol Succinate 25 mg 02/20/22 09:00 02/24/22 08:37 Metoprolol Succinate Ext Rel 25 Mg Tabcr PO 25 mg DAILY LUIS MIGUEL Administration Morphine Sulfate 4 mg 02/19/22 06:05 02/25/22 04:41 Morphine [place]
--- NOTE | 2022-02-25 13:54 | PC.NURSE ---
pt returned from dialysis via bed
[2022-02-25 14:13] LABS: Bilirubin Direct 0.1 mg/dL (0-0.3); Bilirubin Indirect 0.6 mg/dL (0-1.1)
--- NOTE | 2022-02-25 14:39 | PCPTNOTE ---
Attempted to see patient for PT, however patient refused. RN in room at time and asked patient if he wanted to work with therapy and patient refused.
--- NOTE | 2022-02-25 15:00 | PCOTNOTE ---
Per RN, patient just refused PT and is declining therapy at this time. Patient not seen for OT this date. Will continue plan of care.
--- NOTE | 2022-02-25 15:13 | PC.NURSE ---
pt to CT via bed
[2022-02-25 15:22] LABS: Folic Acid > 20.0 ng/mL (2.76->20); Vitamin B12 > 1000.0 pg/mL (239-931)
--- NOTE | 2022-02-25 15:35 | PC.NURSE ---
returned to room from CT
[2022-02-25] MEDS: SEVELAMER CARBONATE 800 MG TABLET PO (17:57)
[2022-02-25] MEDS: APIXABAN 2.5 MG TABLET PO (17:57)
[2022-02-25] MEDS: VENLAFAXINE HCL 75 MG TABLET PO (17:57)
[2022-02-25 18:16] LABS: Hemoglobin 9.3 g/dL (14.0-18.0); Mean Corpuscular Volume 103.1 fl (80-100); Mean Platelet Volume 12.1 fl (7.4-10.4); Platelet Count Result 264 k/mm3 (150-375); Red Blood Count 2.91 M/mm3 (4.6-6.20); White Blood Count 22.8 K/mm3 (4.5-10.0)
[2022-02-25 18:37] LABS: Lymphocytes Absolute Manual 0.68 K/mm3 (1.1-4.5); Lymphocytes Percent Manual 3 % (18-44); Monocytes Absolute Manual 2.28 K/mm3 (0.1-0.90); Monocytes Percent Manual 10 % (3-9); Neutrophils Percent Manual 84 % (46-73); Total Cells Counted 100
[2022-02-25 18:38] LABS: Metamyelocytes Percent 3 %; Nucleated Red Blood Cells 8 %; Platelet Estimate Adequate (Adequate)
[2022-02-25 18:39] LABS: Anisocytosis 1+ (NORMAL)
[2022-02-25 18:40] LABS: Ovalocytes 1+ (NORMAL); Schistocytes None Seen (NORMAL)
[2022-02-25] MEDS: guaiFENesin 12 HR 600 MG TABCR PO (20:01)
[2022-02-25] MEDS: SACUBITRIL/VALSARTAN 24-26 MG TABLET 1 TAB PO (20:01)
[2022-02-26] VITALS (8 sets, daily range): BP systolic 137–149; BP diastolic 79–88; PULSE 62–100; RESP 19–22; TEMP 36.6–37.3; O2SAT 92–99; BMI 10.0; BMI 23.8
[2022-02-26 06:04] LABS: Hematocrit 32.1 % (42.0-52.0); Hemoglobin 9.6 g/dL (14.0-18.0); Mean Corpuscular HGB Conc 29.9 g/dl (32-36); Mean Corpuscular Hemoglobin 31.7 pg (26-34); Mean Corpuscular Volume 105.9 fl (80-100); Mean Platelet Volume 11.7 fl (7.4-10.4); Platelet Count Result 246 k/mm3 (150-375); Red Blood Count 3.03 M/mm3 (4.6-6.20); Red Cell Distribution Width 18.8 % (11.5-14.5); White Blood Count 20.8 K/mm3 (4.5-10.0)
[2022-02-26 06:29] LABS: Alanine Aminotransferase 507 U/L (6-50); Albumin Level 3.5 g/dL (3.5-5.1); Alkaline Phosphatase 117 U/L (38-126); Anion Gap 16 mmol/L (8-16); Aspartate Amino Transferase 443 U/L (17-59); Bilirubin,Total 2.1 mg/dL (0.2-1.3); Blood Urea Nitrogen 59 mg/dL (9-20); Calcium 7.7 mg/dL (8.4-10.2); Carbon Dioxide 22 mmol/L (22-30); Chloride 97 mmol/L (98-107); Estimated CRCL calculation 11 ml/min; Estimated Glomerular Filt Rate 12; Glucose 92 mg/dL (65-110); Potassium 5.1 mmol/L (3.4-5.0); Sodium 135 mmol/L (137-145)
[2022-02-26 07:22] LABS: Band Neutrophils Percent 3 % (0-6); Lymphocytes Absolute Manual 0.41 K/mm3 (1.1-4.5); Metamyelocytes Percent 1 %; Monocytes Percent Manual 13 % (3-9); Myelocytes Percent 2 %; Neutrophils Absolute Manual 17.05 K/mm3 (1.3-6.7); Neutrophils Percent Manual 79 % (46-73); Nucleated Red Blood Cells 10 %; Platelet Estimate Adequate (Adequate); Total Cells Counted 100
[2022-02-26 07:24] LABS: Acanthocytes 1+ (NORMAL); Anisocytosis 1+ (NORMAL); Macrocytosis 1+ (NORMAL); Polychromasia 1+ (NORMAL); Schistocytes None Seen (NORMAL)
[2022-02-26 07:25] LABS: Poikilocytosis 1+ (NORMAL)
--- NOTE | 2022-02-26 08:41 | PM.PNCARD ---
Progress Note: A&P Assessment and Plan (1) Systolic CHF: Code(s): I50.20 - Unspecified systolic (congestive) heart failure Status: Acute Assessment and Plan: Does not appear to be in decompensated HF at this time. Continue current medical regimen. Cardiology will sign off please do not hesitate to contact us with any questions. (2) A-fib: Qualifiers: Atrial fibrillation type: unspecified Qualified Code(s): I48.91 - Unspecified atrial fibrillation Code(s): I48.91 - Unspecified atrial fibrillation Status: Acute Assessment and Plan: Continue amiodarone, metoprolol, and Eliquis. (3) Cardiomyopathy: Qualifiers: Cardiomyopathy type: unspecified Qualified Code(s): I42.9 - Cardiomyopathy, unspecified Code(s): I42.9 - Cardiomyopathy, unspecified Status: Acute Assessment and Plan: Continue GDMT with metoprolol, Entresto. Unable to add other agents to his regimen because of his renal function. Subjective Date/time seen: 02/26/22 08:41 Cardiology follow up for CHF He feels a little worse today but is unable to be specific about his symptoms. Complaining of feeling cold. Breathing is stable, no chest pain or palpitations. Review of Systems Review of Systems: All systems reviewed & are unremarkable except as noted in HPI and below Constitutional: Constitutional: Denies body ache(s) ENT: Reports Normal hearing present Cardiovascular: Cardiovascular: Denies chest pain and Reports leg edema Respiratory: Respiratory: Denies hemoptysis Genitourinary: Genitourinary: Denies hematuria Neurologic: Reports Normal hearing present and Denies confusion Psychiatric: Psychiatric: Denies confusion Exam Const: General: comfortable and no acute distress; No confusion Orientation/consciousness: No confusion Other: Elderly white male supine in bed no distress HENMT: Mouth: Yes moist mucous membranes Eyes: General: appearance normal, both eyes and all related structures Sclera: sclerae normal Neck: Neck: supple and no JVD Resp: Effort & Inspection: normal respiratory effort Auscultation: clear to auscultation bilaterally Cardio: Rate: regular rate Rhythm: regular rhythm Heart sounds: no murmurs Other: Patient has a grade 2/6 holosystolic murmur left sternal border and at the apex GI: Auscultation: normal bowel sounds Skin: General skin exam: normal color Neuro: General: No confusion Cranial nerves: Yes Normal hearing present Speech: normal speech Other: Alert and oriented x3 Extrem: General: normal to inspection and no edema Other: Mild symmetrical pretibial edema Psych: Mental Status: mental status grossly normal Affect: normal affect Objective Data Vital Signs Vital Signs: Vital Signs - 24 hr 02/25/22 10:14 02/25/22 10:05 02/25/22 10:30 Temperature 36.5 C Pulse Rate 82 69 65 Respiratory Rate 22 H Blood Pressure 157/66 H 166/91 H 150/83 H Pulse Oximetry Oxygen Delivery 02/25/22 10:50 02/25/22 11:10 02/25/22 11:30 Temperature Pulse Rate 66 66 81 Respiratory Rate Blood Pressure 145/82 H 151/73 H 195/88 H Pulse Oximetry Oxygen Delivery 02/25/22 11:50 02/25/22 12:10 02/25/22 12:30 Temperature Pulse Rate 102 H 109 H 117 H Respiratory Rate Blood Pressure 121/103 H 113/92 H 145/97 H Pulse Oximetry Oxygen Delivery 02/25/22 12:50 02/25/22 13:15 02/25/22 13:29 Temperature 36.4 C L Pulse Rate 104 H 84 107 H Respiratory Rate 22 H Blood Pressure 118/87 125/92 H 109/91 H Pulse Oximetry Oxygen Delivery 02/25/22 14:00 02/25/22 20:00 02/25/22 20:22 Temperature 36.4 C L 36.6 C Pulse Rate 106 H 115 H Respiratory Rate 18 24 H Blood Pressure 139/97 H 129/88 Pulse Oximetry 100 97 Oxygen Delivery Room Air 02/26/22 05:29 Temperature 36.9 C Pulse Rate 93 Respiratory Rate 20 Blood Pressure 139/82 Pulse Oximetry 96 Oxygen Delivery Intak
[2022-02-26] MEDS: AMIODARONE HCL 200 MG TABLET PO (10:08)
[2022-02-26] MEDS: APIXABAN 2.5 MG TABLET PO ×2 (10:08→17:06)
[2022-02-26] MEDS: allopurinoL 150 MG TABLET BY MOUTH (10:08)
[2022-02-26] MEDS: CEFEPIME 0.5 GM in DEXTROSE 5% IN WATER 50 ML IVPB (10:09)
[2022-02-26] MEDS: calcitrioL 0.25 MCG CAPSULE PO (10:09)
[2022-02-26] MEDS: METOPROLOL SUCCINATE EXT REL 25 MG TABCR PO (10:09)
[2022-02-26] MEDS: CHOLECALCIFEROL 1,000 UNITS TABLET 2000 UNITS PO (10:09)
[2022-02-26] MEDS: SEVELAMER CARBONATE 800 MG TABLET PO ×2 (10:10→17:06)
[2022-02-26] MEDS: SACUBITRIL/VALSARTAN 24-26 MG TABLET 1 TAB PO ×2 (10:10→20:12)
[2022-02-26] MEDS: VENLAFAXINE HCL 75 MG TABLET PO ×2 (10:10→17:06)
--- NOTE | 2022-02-26 11:54 | PC.NURSE ---
Mucinex and Vitamin B Complex held due to difficulty swallowing. These meds cannot be crushed. Will notify Ailyn Rivers on rounds.
--- NOTE | 2022-02-26 16:53 | PM.IMPN ---
Progress Note: A&P Assessment and Plan (1) Sepsis: Code(s): A41.9 - Sepsis, unspecified organism Status: Acute Assessment and Plan: Patient septic evident by leukocytosis, tachypnea, tachycardia in the setting of suspected aspiration pneumonia. WBC Improved to 20.8 today. Repeat blood cultures obtained, awaiting results. MRSA nares screen pending. Procalcitonin elevated, however may be elevated given ESRD. Repeat CXR with increased left lower lobe atelectasis/consolidation and patchy bilateral pulmonary opacities. Concern for aspiration pneumonia and patient was started on vancomycin and cefepime on 02/25. implement aspiration precautions. appreciate speech therapy eval. Recommend mildly thickened liquids and minced and moist diet (2) Acute respiratory failure with hypoxia: Code(s): J96.01 - Acute respiratory failure with hypoxia Status: Acute Assessment and Plan: Presented from nursing facility with sudden onset of shortness of breath and O2 sats 56% on room air. Suspect multifactorial in etiology secondary to hypervolemia from missed dialysis, CHF, COVID-19. CXR revealed diffuse lung disease consistent with pulmonary edema versus pneumonia. He was able to be weaned from BiPAP and is now maintaining adequate O2 sats on room air. Continue supplemental oxygen as needed with goal sats 92% or above. (3) Flash pulmonary edema: Code(s): J81.0 - Acute pulmonary edema Status: Acute Assessment and Plan: Likely secondary to missed dialysis. CXR reveals findings of pulmonary edema and small left pleural effusion. Nephrology consulted for dialysis management and patient had improvement in volume status and respiratory symptoms following hemodialysis. Continue to monitor volume status and continue with dialysis schedule (4) COVID-19: Code(s): U07.1 - COVID-19 Status: Acute Assessment and Plan: COVID positive on 02/17/2022. Patient received 2 doses of steroids at nursing facility. Completed 5 days of IV dexamethasone, discontinued on 02/24 fat as he had no ongoing oxygen requirement. Patient not a candidate for remdesivir given his renal failure. Supportive care provided including bronchodilators, expectorants, incentive spirometry, Cornet. Implement isolation precautions. Patient completed COVID vaccination and booster. monitor inflammatory markers (5) Systolic CHF: Code(s): I50.20 - Unspecified systolic (congestive) heart failure Status: Acute Assessment and Plan: Likely contributing to acute respiratory failure. Last echocardiogram revealed left ventricular systolic function with moderately to severely reduced EF of 35-40%. BNP is >21201. volume status improved with hemodialysis. Continue to monitor volume status with accurate I&Os. repeat echocardiogram on 02/21 revealed EF of 30-35% with grade 2 diastolic dysfunction. Continue carvedilol. started on Entresto per Cardiology recommendations on 02/22. (6) Elevated troponin: Code(s): R77.8 - Other specified abnormalities of plasma proteins Status: Acute Assessment and Plan: Troponin elevated from baseline with peak 5.58. initial documentation states patient complained of chest pressure, however patient denies any episodes of chest pain to me. EKG reviewed. Appreciate cardiology consultation and recommendations. Concern for ACS given troponin rise. Echocardiogram revealed akinesis and hypokinesis of apical and septal wall. patient initially started on heparin drip and cardiac catheterization was considered, however decision was made to proceed with conservative management due to comorbidities and advanced age. Heparin drip discontinued 02/22 and patient restarted on low-dose Eliquis. (7) ESRD on dialysis: Code(s): N18.6 - End stage renal disease; Z99.2 - Dependence on renal dialysis Status: Acute Assessment and Plan: Maintained on hem
[2022-02-26] MEDS: SILVERGEL (ELTA) 45 ML 1 APPLIC TOPICAL (17:07)
[2022-02-26] MEDS: guaiFENesin 12 HR 600 MG TABCR PO (20:12)
[2022-02-27] VITALS (30 sets, daily range): BP systolic 85–163; BP diastolic 45–96; PULSE 65–137; RESP 16–18; TEMP 35.9–37; O2SAT 98–100
[2022-02-27 05:56] LABS: Hematocrit 29.9 % (42.0-52.0); Hemoglobin 9.1 g/dL (14.0-18.0); Mean Corpuscular HGB Conc 30.4 g/dl (32-36); Mean Corpuscular Hemoglobin 31.9 pg (26-34); Mean Corpuscular Volume 104.9 fl (80-100); Mean Platelet Volume 11.6 fl (7.4-10.4); Platelet Count Result 215 k/mm3 (150-375); Red Blood Count 2.85 M/mm3 (4.6-6.20); Red Cell Distribution Width 20.2 % (11.5-14.5); White Blood Count 15.5 K/mm3 (4.5-10.0)
[2022-02-27 06:32] LABS: Anion Gap 14 mmol/L (8-16); Blood Urea Nitrogen 76 mg/dL (9-20); Calcium 7.7 mg/dL (8.4-10.2); Carbon Dioxide 28 mmol/L (22-30); Chloride 96 mmol/L (98-107); Estimated CRCL calculation 8 ml/min; Estimated Glomerular Filt Rate 8; Glucose 96 mg/dL (65-110); Sodium 138 mmol/L (137-145)
[2022-02-27] MEDS: APIXABAN 2.5 MG TABLET PO (08:10)
[2022-02-27] MEDS: CHOLECALCIFEROL 1,000 UNITS TABLET 2000 UNITS PO (08:11)
[2022-02-27] MEDS: METOPROLOL SUCCINATE EXT REL 25 MG TABCR PO ×2 (08:12→20:59)
[2022-02-27] MEDS: SEVELAMER CARBONATE 800 MG TABLET PO (08:12)
[2022-02-27] MEDS: VITAMIN B CMPLX/VIT C/FOLIC AC 1 CAPSULE 1 CAP PO (08:12)
[2022-02-27] MEDS: CEFEPIME 0.5 GM in DEXTROSE 5% IN WATER 50 ML IVPB (08:27)
--- NOTE | 2022-02-27 10:01 | PC.NURSE ---
Addendum entered by Terrie Amos RN 02/27/22 10:25: Pt. taken to ICU-12 for dialysis. Original Note: New difficulty swallowing noted during AM med pass that was not noted from prior shifts. Some medications (not all; see MAR) were administered with pudding and thickened water but with delayed swallowing and coughing. After noted findings, med pass was stopped. Provider rounding at bedside during med pass. Provider made aware and orders were placed.
--- NOTE | 2022-02-27 10:02 | PCSTNOTE ---
Patient refused therapy stating he was not up to exercising for the swallow.
[2022-02-27 11:49] LABS: Alveolar/Arterial O2 Gradient 59.5 mmHg; Base Excess ABG 8.8 mEq/l (+/-2.0); Fractional Inspired Oxygen 28 %; Oxygen Content ABG 13.2 %vol (16.0-22.0); Oxygen Saturation ABG 97.2 % (95.0-100.0); Oxyhemoglobin 95.2 % THb (90.0-100.0); PCO2 ABG 44.3 mmHg (35.0-45.0); PO2 ABG 87.9 mmHg (80.0-100.0); PO2 FiO2 Ratio Arterial Blood 3.14 %; Total Hemoglobin 9.8 g/dL (12.0-18.0)
[2022-02-27 11:50] LABS: Device NASAL CANNULA; Modified Allen's Test Pass; Site Drawn RIGHT RADIAL
--- NOTE | 2022-02-27 11:51 | ECG_ITS ---
Measurements Intervals [place] Rate: 116 P: [place]: 0 QRS: 56 QRSD: 139 T: -77 QT: 326 QTc: 453 Interpretive Statements ATRIAL FIBRILLATION WITH RAPID VENTRICULAR RESPONSE RIGHT BUNDLE BRANCH BLOCK [120+ ms QRS DURATION, UPRIGHT V1, 40+ ms S IN I/aVL/V4/V5/V6] MODERATE T-WAVE ABNORMALITY, CONSIDER LATERAL ISCHEMIA [-0.1+ mV T WAVE IN I/aVL/V5/V6] MODERATE T-WAVE ABNORMALITY, CONSIDER INFERIOR ISCHEMIA [-0.1+ mV T WAVE IN II/aVF] COMPARED TO ECG 02/21/2022 14:08:58 ATRIAL FIBRILLATION NOW PRESENT Electronically Signed On 02-27-2022 13:26:12 OFFICE ASSISTANT by Megha Donahue M.D.
--- NOTE | 2022-02-27 12:37 | PCOTNOTE ---
Attempted to see patient this pm, however patient was off floor for dialysis at this time.
[2022-02-27] MEDS: SODIUM CHLORIDE 0.9% IV 250 ML 125 ML IV CONT (15:32)
[2022-02-27] MEDS: SILVERGEL (ELTA) 45 ML 1 APPLIC TOPICAL (15:33)
--- NOTE | 2022-02-27 16:10 | PM.PNNEP ---
Progress Note: A&P Assessment and Plan (1) ESRD (end stage renal disease) on dialysis: Code(s): N18.6 - End stage renal disease; Z99.2 - Dependence on renal dialysis Status: Acute Assessment and Plan: End-stage renal disease Hypertensive renal disease with renal failure Hyperkalemia Hyponatremia Fluid overload CHF as a result next item atrial fibrillation with rapid ventricular response anemia chronic kidney disease secondary hyperparathyroidism COVID-19 infection, pneumonia, sepsis Plan -hemodialysis done earlier today -ran into problems with arrhythmia -ventricular rate controlled -on vancomycin from a pneumonia microbiology so far negative Subjective Date/time seen: 02/27/22 16:10 End-stage renal disease follow-up Review of Systems Review of Systems: Had dialysis earlier today. Ran into problems with tachycardia. Atrial fibrillation with RVR Is weak. Otherwise no new complaints voiced. Exam Narrative: Elderly, comfortable breathing at rest no edema, hands is, globally weak, no tremors, irregular rhythm rate, diminished breath sounds Objective Data Vital Signs Vital Signs: Vital Signs - 24 hr 02/26/22 20:11 02/26/22 20:01 02/26/22 20:00 Temperature 37.3 C 37.3 C Pulse Rate 73 73 Respiratory Rate 22 H 22 H Blood Pressure 139/79 137/79 Pulse Oximetry 92 92 92 Oxygen Delivery Nasal Cannula Oxygen Flow Rate 2 02/26/22 22:05 02/27/22 03:17 02/27/22 08:04 Temperature 36.9 C Pulse Rate 100 68 108 H Respiratory Rate 18 Blood Pressure 128/87 140/96 H Pulse Oximetry 99 100 Oxygen Delivery Nasal Cannula Oxygen Flow Rate 2 02/27/22 08:12 02/27/22 08:00 02/27/22 10:21 Temperature 37.0 C Pulse Rate 108 H 95 Respiratory Rate 16 Blood Pressure 132/83 Pulse Oximetry 100 Oxygen Delivery Nasal Cannula Oxygen Flow Rate 1 02/27/22 10:26 02/27/22 10:26 02/27/22 10:40 Temperature Pulse Rate 95 128 H Respiratory Rate Blood Pressure 132/83 163/69 H Pulse Oximetry Oxygen Delivery Oxygen Flow Rate 1 02/27/22 11:00 02/27/22 11:20 02/27/22 11:40 Temperature Pulse Rate 122 H 114 H 137 H Respiratory Rate Blood Pressure 134/66 96/54 L 139/73 Pulse Oximetry Oxygen Delivery Oxygen Flow Rate 02/27/22 12:00 02/27/22 12:20 02/27/22 12:40 Temperature Pulse Rate 100 88 78 Respiratory Rate Blood Pressure 115/45 L 122/73 137/67 Pulse Oximetry Oxygen Delivery Oxygen Flow Rate 02/27/22 12:54 02/27/22 13:00 02/27/22 13:20 Temperature Pulse Rate 65 93 71 Respiratory Rate Blood Pressure 85/50 L 134/71 118/71 Pulse Oximetry Oxygen Delivery Oxygen Flow Rate 02/27/22 13:40 02/27/22 13:56 02/27/22 14:08 Temperature 37.0 C Pulse Rate 94 87 117 H Respiratory Rate 16 Blood Pressure 141/66 H 146/82 H 150/77 H Pulse Oximetry Oxygen Delivery Oxygen Flow Rate 02/27/22 15:30 Temperature Pulse Rate Respiratory Rate Blood Pressure 142/83 H Pulse Oximetry Oxygen Delivery Oxygen Flow Rate Intake/Output Intake/Output: Intake & Output 02/24/22 02/25/22 02/26/22 02/27/22 23:59 23:59 23:59 23:59 Intake Total 630 660 620 170 Output Total 1999 1000 Balance 630 -1340 620 -830 Meds/Results Medications: Active Medications Generic Name Dose Route Start Last Admin Trade Name Freq PRN Reason Stop Dose Admin Albuterol 2 puff 02/19/22 09:42 Albuterol Sulfate (*Sp) Aerosol 1 Puff INHALATION Q6HRT PRN Shortness Of Breath Allopurinol 150 mg 02/20/22 09:00 02/27/22 08:42 Allopurinol 150 Mg Tablet BY MOUTH Not Given DAILY [facility] Amiodarone HCl 200 mg 02/20/22 09:00 02/27/22 08:40 Amiodarone Hcl 200 Mg Tablet PO Not Given DAILY LUIS MIGUEL Apixaban 2.5 mg 02/20/22 09:00 02/27/22 08:10 Apixaban 2.5 Mg Tablet PO 2.5 mg BID LUIS MIGUEL Administration Calcitriol 0.25 mcg 02/20/22 09:00 02/27/22 08:40 Calcitriol
--- NOTE | 2022-02-27 17:21 | PM.IMPN ---
Progress Note: A&P Assessment and Plan (1) Sepsis: Code(s): A41.9 - Sepsis, unspecified organism Status: Acute Assessment and Plan: Patient septic evident by leukocytosis, tachypnea, tachycardia in the setting of suspected aspiration pneumonia. WBC continues to improve. Blood culture note growth Repeat blood cultures obtained, No growth to date MRSA nares screen pending. Procalcitonin elevated, however may be elevated given ESRD. Repeat CXR with increased left lower lobe atelectasis/consolidation and patchy bilateral pulmonary opacities. Concern for aspiration pneumonia and patient was started on vancomycin and cefepime on 02/25. implement aspiration precautions. appreciate speech therapy eval. Recommend mildly thickened liquids and minced and moist diet (2) Acute respiratory failure with hypoxia: Code(s): J96.01 - Acute respiratory failure with hypoxia Status: Acute Assessment and Plan: Presented from nursing facility with sudden onset of shortness of breath and O2 sats 56% on room air. Suspect multifactorial in etiology secondary to hypervolemia from missed dialysis, CHF, COVID-19. CXR revealed diffuse lung disease consistent with pulmonary edema versus pneumonia. He was able to be weaned from BiPAP and is now maintaining adequate O2 sats on room air. Continue supplemental oxygen as needed with goal sats 92% or above. (3) Flash pulmonary edema: Code(s): J81.0 - Acute pulmonary edema Status: Acute Assessment and Plan: Likely secondary to missed dialysis. CXR reveals findings of pulmonary edema and small left pleural effusion. Nephrology consulted for dialysis management and patient had improvement in volume status and respiratory symptoms following hemodialysis. Continue to monitor volume status and continue with dialysis schedule repeat chest x-ray today with diffuse opacities improved in the mid and upper lung zones stable in the lung bases consistent with pneumonia versus pulmonary edema (4) COVID-19: Code(s): U07.1 - COVID-19 Status: Acute Assessment and Plan: COVID positive on 02/17/2022. Patient received 2 doses of steroids at nursing facility. Completed 5 days of IV dexamethasone, discontinued on 02/24 fat as he had no ongoing oxygen requirement. Patient not a candidate for remdesivir given his renal failure. Supportive care provided including bronchodilators, expectorants, incentive spirometry, Cornet. Implement isolation precautions. Patient completed COVID vaccination and booster. monitor inflammatory markers Repeat chest x-ray today (5) Systolic CHF: Code(s): I50.20 - Unspecified systolic (congestive) heart failure Status: Acute Assessment and Plan: Likely contributing to acute respiratory failure. Last echocardiogram revealed left ventricular systolic function with moderately to severely reduced EF of 35-40%. BNP is >54723. volume status improved with hemodialysis. Continue to monitor volume status with accurate I&Os. repeat echocardiogram on 02/21 revealed EF of 30-35% with grade 2 diastolic dysfunction. Continue carvedilol. started on Entresto per Cardiology recommendations on 02/22. (6) Elevated troponin: Code(s): R77.8 - Other specified abnormalities of plasma proteins Status: Acute Assessment and Plan: Troponin elevated from baseline with peak 5.58. initial documentation states patient complained of chest pressure, however patient denies any episodes of chest pain to me. EKG reviewed. Appreciate cardiology consultation and recommendations. Concern for ACS given troponin rise. Echocardiogram revealed akinesis and hypokinesis of apical and septal wall. patient initially started on heparin drip and cardiac catheterization was considered, however decision was made to proceed with conservative management due to comorbidities and advanced age. Heparin drip discontinued 02/22 and patient
[2022-02-27] MEDS: METOPROLOL TARTRATE INJ 5 MG/5 ML VIAL IV PUSH ×2 (18:14→23:40)
[2022-02-27] MEDS: EPOETIN ALFA-EPBX 4,000 UNITS/ML VIAL 4000 UNITS SUB-Q (20:43)
[2022-02-27] MEDS: guaiFENesin 12 HR 600 MG TABCR PO (20:58)
[2022-02-27] MEDS: SACUBITRIL/VALSARTAN 24-26 MG TABLET 1 TAB PO (20:58)
[2022-02-27] MEDS: AMIODARONE HCL 200 MG TABLET PO (20:59)
[2022-02-28] VITALS (14 sets, daily range): BP systolic 129–130; BP diastolic 82–92; PULSE 92–135; RESP 18; TEMP 36.5–36.6; O2SAT 91–100
[2022-02-28] MEDS: METOPROLOL TARTRATE INJ 5 MG/5 ML VIAL IV PUSH ×2 (03:35→21:57)
[2022-02-28 05:50] LABS: Basophils Percent Auto 0.2 % (0.2-1.2); Eosinophils Percent Auto 0.1 % (0-4.4); Hematocrit 32.2 % (42.0-52.0); Hemoglobin 9.7 g/dL (14.0-18.0); Immature Granulocyte Absolute 0.31 K/mm3 (0.00-0.031); Immature Granulocyte Percent A 2.1 % (0-0.5); Lymphocytes Absolute Auto 0.57 K/mm3 (0.9-3.2); Lymphocytes Percent Auto 3.9 % (18.3-44.2); Mean Corpuscular HGB Conc 30.1 g/dl (32-36); Mean Corpuscular Volume 106.3 fl (80-100); Mean Platelet Volume 11.3 fl (7.4-10.4); Monocytes Absolute Auto 1.5 K/mm3 (0.1-0.6); Monocytes Percent Auto 10.3 % (2.6-8.5); Neutrophils Absolute Auto 12.2 K/mm3 (1.3-6.7); Neutrophils Percent Auto 83.4 % (45.5-73.1); Nucleated Red Blood Cells Absolute Auto 0.4 K/mm3 (0.0-0.012); Nucleated Red Blood Cells Perc 2.9 % (0.0-0.2); Platelet Count Result 234 k/mm3 (150-375); Red Blood Count 3.03 M/mm3 (4.6-6.20); Red Cell Distribution Width 21.5 % (11.5-14.5); White Blood Count 14.6 K/mm3 (4.5-10.0)
[2022-02-28 06:05] LABS: Alanine Aminotransferase 363 U/L (6-50); Albumin Level 3.3 g/dL (3.5-5.1); Alkaline Phosphatase 104 U/L (38-126); Anion Gap 10 mmol/L (8-16); Aspartate Amino Transferase 329 U/L (17-59); Bilirubin,Total 1.8 mg/dL (0.2-1.3); Blood Urea Nitrogen 47 mg/dL (9-20); Calcium 7.6 mg/dL (8.4-10.2); Carbon Dioxide 31 mmol/L (22-30); Chloride 94 mmol/L (98-107); Estimated CRCL calculation 13 ml/min; Estimated Glomerular Filt Rate 14; Glucose 93 mg/dL (65-110); Magnesium 2.3 mg/dL (1.6-2.3); Potassium 4.2 mmol/L (3.4-5.0); Sodium 135 mmol/L (137-145)
[2022-02-28 07:51] LABS: Anisocytosis 1+ (NORMAL); Platelet Estimate Adequate (Adequate); Schistocytes None Seen (NORMAL)
[2022-02-28] MEDS: AMIODARONE HCL 200 MG TABLET PO (08:56)
[2022-02-28] MEDS: allopurinoL 150 MG TABLET BY MOUTH (08:58)
[2022-02-28] MEDS: CHOLECALCIFEROL 1,000 UNITS TABLET 2000 UNITS PO (08:58)
[2022-02-28] MEDS: calcitrioL 0.25 MCG CAPSULE PO (08:58)
[2022-02-28] MEDS: VITAMIN B CMPLX/VIT C/FOLIC AC 1 CAPSULE 1 CAP PO (08:59)
[2022-02-28] MEDS: VENLAFAXINE HCL 75 MG TABLET PO ×2 (08:59→16:31)
[2022-02-28] MEDS: SEVELAMER CARBONATE 800 MG TABLET PO ×2 (08:59→16:31)
[2022-02-28] MEDS: guaiFENesin 12 HR 600 MG TABCR PO ×2 (08:59→20:44)
[2022-02-28] MEDS: APIXABAN 2.5 MG TABLET PO ×2 (08:59→16:31)
[2022-02-28] MEDS: SACUBITRIL/VALSARTAN 24-26 MG TABLET 1 TAB PO ×2 (08:59→20:44)
[2022-02-28] MEDS: CEFEPIME 0.5 GM in DEXTROSE 5% IN WATER 50 ML IVPB (09:00)
[2022-02-28 09:04] LABS: Procalcitonin 8.5 ng/mL
--- NOTE | 2022-02-28 09:06 | PM.IMPN ---
Progress Note: A&P Assessment and Plan (1) Sepsis: Code(s): A41.9 - Sepsis, unspecified organism Status: Acute Assessment and Plan: Patient septic evident by leukocytosis, tachypnea, tachycardia in the setting of suspected aspiration pneumonia. WBC continues to improve. Blood culture note growth Repeat blood cultures obtained, No growth to date MRSA nares screen pending. Procalcitonin elevated, however may be elevated given ESRD. Repeat CXR with increased left lower lobe atelectasis/consolidation and patchy bilateral pulmonary opacities. Concern for aspiration pneumonia and patient was started on vancomycin and cefepime on 02/25. implement aspiration precautions. appreciate speech therapy eval. Recommend mildly thickened liquids and minced and moist diet continue curent antibioics. check procalcitonin level. wbc improving slowly (2) Acute respiratory failure with hypoxia: Code(s): J96.01 - Acute respiratory failure with hypoxia Status: Acute Assessment and Plan: Presented from nursing facility with sudden onset of shortness of breath and O2 sats 56% on room air. Suspect multifactorial in etiology secondary to hypervolemia from missed dialysis, CHF, COVID-19. CXR revealed diffuse lung disease consistent with pulmonary edema versus pneumonia. He was able to be weaned from BiPAP and is now maintaining adequate O2 sats on room air. Continue supplemental oxygen as needed with goal sats 92% or above. (3) Flash pulmonary edema: Code(s): J81.0 - Acute pulmonary edema Status: Acute Assessment and Plan: Likely secondary to missed dialysis. CXR reveals findings of pulmonary edema and small left pleural effusion. Nephrology consulted for dialysis management and patient had improvement in volume status and respiratory symptoms following hemodialysis. Continue to monitor volume status and continue with dialysis schedule repeat chest x-ray today with diffuse opacities improved in the mid and upper lung zones stable in the lung bases consistent with pneumonia versus pulmonary edema cxr with improving edema (4) COVID-19: Code(s): U07.1 - COVID-19 Status: Acute Assessment and Plan: COVID positive on 02/17/2022. Patient received 2 doses of steroids at nursing facility. Completed 5 days of IV dexamethasone, discontinued on 02/24 fat as he had no ongoing oxygen requirement. Patient not a candidate for remdesivir given his renal failure. Supportive care provided including bronchodilators, expectorants, incentive spirometry, Cornet. Implement isolation precautions. Patient completed COVID vaccination and booster. monitor inflammatory markers Repeat chest x-ray with congestive changes, patchy opacities. reviewed personally. (5) Systolic CHF: Code(s): I50.20 - Unspecified systolic (congestive) heart failure Status: Acute Assessment and Plan: Likely contributing to acute respiratory failure. Last echocardiogram revealed left ventricular systolic function with moderately to severely reduced EF of 35-40%. BNP is >83992. volume status improved with hemodialysis. Continue to monitor volume status with accurate I&Os. repeat echocardiogram on 02/21 revealed EF of 30-35% with grade 2 diastolic dysfunction. Continue carvedilol. started on Entresto per Cardiology recommendations on 02/22. (6) Elevated troponin: Code(s): R77.8 - Other specified abnormalities of plasma proteins Status: Acute Assessment and Plan: Troponin elevated from baseline with peak 5.58. initial documentation states patient complained of chest pressure, however patient denies any episodes of chest pain to me. EKG reviewed. Appreciate cardiology consultation and recommendations. Concern for ACS given troponin rise. Echocardiogram revealed akinesis and hypokinesis of apical and septal wall. patient initially started on heparin drip and cardiac catheterization was co
[2022-02-28] MEDS: METOPROLOL SUCCINATE EXT REL 50 MG TABCR PO (09:31)
[2022-02-28 11:22] LABS: Haptoglobin 53 mg/dL (43-212)
[2022-02-28] MEDS: SILVERGEL (ELTA) 45 ML 1 APPLIC TOPICAL (11:24)
--- NOTE | 2022-02-28 13:23 | PCOTNOTE ---
Attempted to see Patient at this time. Per Patient and Family he just layed down in the bed for a nap, he was up a lot lastnight and family has been here visiting. Per Family, they would like him to sleep while they go to lunch before they return.
--- NOTE | 2022-02-28 14:47 | PCPTNOTE ---
Attempted to see patient for PT, however patient refused. Patient reported he is tired and wants to rest at this time. Educated patient on the importance and benefits of therapy, patient continued to refuse.
[2022-03-01] VITALS (27 sets, daily range): BP systolic 104–151; BP diastolic 64–88; PULSE 99–141; RESP 16–18; TEMP 36–36.5; O2SAT 94–99
[2022-03-01 05:51] LABS: Basophils Percent Auto 0.2 % (0.2-1.2); Eosinophils Percent Auto 0.1 % (0-4.4); Hematocrit 35.3 % (42.0-52.0); Hemoglobin 10.5 g/dL (14.0-18.0); Immature Granulocyte Absolute 0.28 K/mm3 (0.00-0.031); Immature Granulocyte Percent A 1.8 % (0-0.5); Lymphocytes Absolute Auto 0.47 K/mm3 (0.9-3.2); Mean Corpuscular HGB Conc 29.7 g/dl (32-36); Mean Corpuscular Hemoglobin 31.4 pg (26-34); Mean Corpuscular Volume 105.7 fl (80-100); Mean Platelet Volume 11.8 fl (7.4-10.4); Monocytes Percent Auto 12.4 % (2.6-8.5); Neutrophils Absolute Auto 12.9 K/mm3 (1.3-6.7); Neutrophils Percent Auto 82.5 % (45.5-73.1); Nucleated Red Blood Cells Absolute Auto 0.8 K/mm3 (0.0-0.012); Nucleated Red Blood Cells Perc 5.2 % (0.0-0.2); Platelet Count Result 238 k/mm3 (150-375); Red Blood Count 3.34 M/mm3 (4.6-6.20); Red Cell Distribution Width 21.8 % (11.5-14.5); White Blood Count 15.7 K/mm3 (4.5-10.0)
[2022-03-01 06:33] LABS: Anisocytosis 1+ (NORMAL); Macrocytosis 1+ (NORMAL); Platelet Estimate Adequate (Adequate); Poikilocytosis 1+ (NORMAL); Schistocytes Rare (NORMAL)
[2022-03-01 06:34] LABS: Crenated RBC 1+ (NORMAL); Polychromasia 1+ (NORMAL)
[2022-03-01 07:53] LABS: Alanine Aminotransferase 358 U/L (6-50); Albumin Level 3.4 g/dL (3.5-5.1); Alkaline Phosphatase 120 U/L (38-126); Anion Gap 18 mmol/L (8-16); Aspartate Amino Transferase 430 U/L (17-59); Bilirubin,Total 2.3 mg/dL (0.2-1.3); Blood Urea Nitrogen 65 mg/dL (9-20); Calcium 7.8 mg/dL (8.4-10.2); Carbon Dioxide 23 mmol/L (22-30); Chloride 98 mmol/L (98-107); Estimated CRCL calculation 10 ml/min; Estimated Glomerular Filt Rate 11; Glucose 91 mg/dL (65-110); Magnesium 2.4 mg/dL (1.6-2.3); Potassium 5.1 mmol/L (3.4-5.0); Sodium 139 mmol/L (137-145)
[2022-03-01] MEDS: CEFEPIME 0.5 GM in DEXTROSE 5% IN WATER 50 ML IVPB (09:11)
[2022-03-01] MEDS: guaiFENesin 12 HR 600 MG TABCR PO ×2 (09:15→21:46)
[2022-03-01] MEDS: AMIODARONE HCL 200 MG TABLET PO ×2 (09:15→17:58)
[2022-03-01] MEDS: VITAMIN B CMPLX/VIT C/FOLIC AC 1 CAPSULE 1 CAP PO (09:15)
[2022-03-01] MEDS: SEVELAMER CARBONATE 800 MG TABLET PO ×2 (09:15→17:59)
[2022-03-01] MEDS: allopurinoL 150 MG TABLET BY MOUTH (09:15)
[2022-03-01] MEDS: calcitrioL 0.25 MCG CAPSULE PO (09:15)
[2022-03-01] MEDS: VENLAFAXINE HCL 75 MG TABLET PO ×2 (09:16→17:59)
[2022-03-01] MEDS: APIXABAN 2.5 MG TABLET PO ×2 (09:16→17:59)
[2022-03-01] MEDS: SACUBITRIL/VALSARTAN 24-26 MG TABLET 1 TAB PO ×2 (09:16→20:40)
[2022-03-01] MEDS: METOPROLOL SUCCINATE EXT REL 50 MG TABCR PO ×2 (09:16→21:45)
[2022-03-01] MEDS: CHOLECALCIFEROL 1,000 UNITS TABLET 2000 UNITS PO (09:16)
[2022-03-01] MEDS: SILVERGEL (ELTA) 45 ML 1 APPLIC TOPICAL (09:17)
--- NOTE | 2022-03-01 10:20 | PC.NURSE ---
pt to dialysis via bed
--- NOTE | 2022-03-01 11:07 | PCOTNOTE ---
Attempted to see pt for Occupational therapy treatment. Pt is out of room due to having dialysis currently.
--- NOTE | 2022-03-01 11:42 | PM.PNNEP ---
Progress Note: A&P Assessment and Plan (1) ESRD (end stage renal disease) on dialysis: Code(s): N18.6 - End stage renal disease; Z99.2 - Dependence on renal dialysis Status: Acute Assessment and Plan: End-stage renal disease Hypertensive renal disease with renal failure Hyperkalemia Hyponatremia Fluid overload CHF as a result next item atrial fibrillation with rapid ventricular response anemia chronic kidney disease secondary hyperparathyroidism COVID-19 infection, pneumonia, sepsis Plan -hemodialysis Supervised today 03/01/22 - was a left upper arm swelling -ventricular rate controlled -on vancomycin plus cefepime for a suspected pneumonia, microbiology so far negative Subjective Date/time seen: 03/01/22 11:42 ESRD: Seen and examined on hemodialysis today. Hemodialysis supervised. Blood flow 350 mL/min, ultrafiltration 0 today. He has a left upper arm AV fistula. The left upper arm is swollen. No obvious sign of infection. It did edematous. He has cool peripheries. His left radial pulses felt. Tolerating dialysis. No complaints voiced. Exam Narrative: Seen and examined on hemodialysis. See dialysis flow sheet. Internally more awake. Has a left upper arm AV fistula. This is in use. Has left upper arm swelling. JVD under CV, regular rate rhythm, lungs clear, soft abdomen, edema negative in the lower peripheries. no tremors. Objective Data Vital Signs Vital Signs: Vital Signs - 24 hr 02/28/22 14:00 02/28/22 19:50 02/28/22 12:00 Temperature 36.6 C 36.5 C Pulse Rate 92 112 H 135 H Respiratory Rate 18 18 Blood Pressure 129/92 H 129/82 Pulse Oximetry 99 99 Oxygen Delivery Oxygen Flow Rate 02/28/22 16:00 02/28/22 21:57 02/28/22 20:00 Temperature Pulse Rate 115 H 125 H Respiratory Rate Blood Pressure Pulse Oximetry 99 Oxygen Delivery Nasal Cannula Oxygen Flow Rate 1 02/28/22 20:00 03/01/22 00:00 03/01/22 03:17 Temperature 36.4 C L Pulse Rate 128 H 106 H 108 H Respiratory Rate 18 Blood Pressure 133/82 Pulse Oximetry 94 Oxygen Delivery Oxygen Flow Rate 03/01/22 04:00 03/01/22 09:15 03/01/22 09:16 Temperature Pulse Rate 117 H 112 H 112 H Respiratory Rate Blood Pressure Pulse Oximetry Oxygen Delivery Oxygen Flow Rate 03/01/22 10:46 03/01/22 10:35 03/01/22 10:35 Temperature 36.5 C Pulse Rate 103 H 103 H Respiratory Rate 16 Blood Pressure 151/85 H 129/79 Pulse Oximetry Oxygen Delivery Oxygen Flow Rate 1 03/01/22 11:00 03/01/22 11:20 Temperature Pulse Rate 123 H 134 H Respiratory Rate Blood Pressure 125/85 137/88 Pulse Oximetry Oxygen Delivery Oxygen Flow Rate Intake/Output Intake/Output: Intake & Output 02/26/22 02/27/22 02/28/22 03/01/22 23:59 23:59 23:59 23:59 Intake Total 315 807 3025 498 Output Total 1000 0 Balance 620 -580 1070 498 Meds/Results Medications: Active Medications Generic Name Dose Route Start Last Admin Trade Name Freq PRN Reason Stop Dose Admin Albuterol 2 puff 02/19/22 09:42 Albuterol Sulfate (*Sp) Aerosol 1 Puff INHALATION Q6HRT PRN Shortness Of Breath Allopurinol 150 mg 02/20/22 09:00 03/01/22 09:15 Allopurinol 150 Mg Tablet BY MOUTH 150 mg DAILY [facility]IS MIGUEL Administration Amiodarone HCl 200 mg 02/20/22 09:00 03/01/22 09:15 Amiodarone Hcl 200 Mg Tablet PO 200 mg DAILY LUIS MIGUEL Administration Apixaban 2.5 mg 02/20/22 09:00 03/01/22 09:16 Apixaban 2.5 Mg Tablet PO 2.5 mg BID LUIS MIGUEL Administration Calcitriol 0.25 mcg 02/20/22 09:00 03/01/22 09:15 Calcitriol 0.25 Mcg Capsule PO 0.25 mcg DAILY LUIS MIGUEL Administration Epoetin Julio-epbx 4,000 units 02/20/22 20:00 02/27/22 20:43 Epoetin Julio-Epbx 4,000 Units/Ml Vial SUB-Q 4,000 units [id number] REPLACED BY [facility] Administration Guaifenesin 600 mg 02/19/22 10:20 03/01/22 09:15 Guaifenesin 12 Hr 600 Mg Tabcr PO 600 m
--- NOTE | 2022-03-01 13:43 | PCNFU ---
Nutrition Follow-Up Complete: Inadequate oral intake related to swallowing difficulty, loss of appetite, weakness as evidenced by poor intake and refusing meals. Goal:Meet estimated nutrition needs. Pt is progressing towards goal. Continue with same goal. Pt current nutrition is Heart healthy, level 5 minced and moist, level 2 liquids. Nutrition recommendation: Add MAGDA BID for wound healing Last recorded weight is 74.8 kg - down from 79kg on admission. Bowel Motility: no BM recorded Labs Reviewed: K:5.1, BUN:65, Cr:5.2 Meds Noted: laya wilkerson Skin: Stage III to sacrum Additional Notes: Pt continues on a heart healthy diet level 5, level 2 liquids, intake 50-75% average intake. nepro shakes were in place, have been d/c'd. Pt now has a new pressure injury documented. Recommend MAGDA BID for wound healing. Monitoring intakes, wt, labs, skin. Follow up in 5 days
--- NOTE | 2022-03-01 14:24 | PC.NURSE ---
pt returned from dialysis
[2022-03-01] MEDS: METOPROLOL TARTRATE INJ 5 MG/5 ML VIAL IV PUSH (14:29)
--- NOTE | 2022-03-01 14:36 | PCOTNOTE ---
Attempted to see pt for occupational therapy treatment. Pt was very lethargic and had difficulty keeping eyes open, due to decrease alertness therapy session was not completed today. RN was present and states that pt is usually very tired and sleeping following dialysis treatment. Will continue per poc duration/ frequency tomorrow.
--- NOTE | 2022-03-01 15:12 | PCPTNOTE ---
Attempted to see patient for PT, however per RN patient has been unable to be aroused since dialysis and advised PT not to see at this time.
--- NOTE | 2022-03-01 17:07 | PM.IMPN ---
Progress Note: A&P Assessment and Plan (1) Sepsis: Code(s): A41.9 - Sepsis, unspecified organism Status: Acute Assessment and Plan: Patient septic evident by leukocytosis, tachypnea, tachycardia in the setting of suspected aspiration pneumonia. WBC continues to improve. Blood culture note growth Repeat blood cultures obtained, No growth to date MRSA nares screen pending. Procalcitonin elevated, however may be elevated given ESRD. Repeat CXR with increased left lower lobe atelectasis/consolidation and patchy bilateral pulmonary opacities. Concern for aspiration pneumonia and patient was started on vancomycin and cefepime on 02/25. implement aspiration precautions. appreciate speech therapy eval. Recommend mildly thickened liquids and minced and moist diet continue curent antibioics. Procalcitonin level improved but is still elevated wbc stable today (2) Acute respiratory failure with hypoxia: Code(s): J96.01 - Acute respiratory failure with hypoxia Status: Acute Assessment and Plan: Presented from nursing facility with sudden onset of shortness of breath and O2 sats 56% on room air. Suspect multifactorial in etiology secondary to hypervolemia from missed dialysis, CHF, COVID-19. CXR revealed diffuse lung disease consistent with pulmonary edema versus pneumonia. He was able to be weaned from BiPAP and is now maintaining adequate O2 sats on room air. Continue supplemental oxygen as needed with goal sats 92% or above. (3) Flash pulmonary edema: Code(s): J81.0 - Acute pulmonary edema Status: Acute Assessment and Plan: Likely secondary to missed dialysis. CXR reveals findings of pulmonary edema and small left pleural effusion. Nephrology consulted for dialysis management and patient had improvement in volume status and respiratory symptoms following hemodialysis. Continue to monitor volume status and continue with dialysis schedule repeat chest x-ray today with diffuse opacities improved in the mid and upper lung zones stable in the lung bases consistent with pneumonia versus pulmonary edema cxr with improving edema however still congested with bilateral lower extremity edema There are not able to get the fluid off from the dialysis Some reports he still makes urine will give a dose of Lasix IV as tolerated Further AFib control with increased dose of amiodarone and metoprolol (4) COVID-19: Code(s): U07.1 - COVID-19 Status: Acute Assessment and Plan: COVID positive on 02/17/2022. Patient received 2 doses of steroids at nursing facility. Completed 5 days of IV dexamethasone, discontinued on 02/24 fat as he had no ongoing oxygen requirement. Patient not a candidate for remdesivir given his renal failure. Supportive care provided including bronchodilators, expectorants, incentive spirometry, Cornet. Implement isolation precautions. Patient completed COVID vaccination and booster. monitor inflammatory markers Repeat chest x-ray with congestive changes, patchy opacities. reviewed personally. (5) Systolic CHF: Code(s): I50.20 - Unspecified systolic (congestive) heart failure Status: Acute Assessment and Plan: Likely contributing to acute respiratory failure. Last echocardiogram revealed left ventricular systolic function with moderately to severely reduced EF of 35-40%. BNP is >11612. volume status improved with hemodialysis. Continue to monitor volume status with accurate I&Os. repeat echocardiogram on 02/21 revealed EF of 30-35% with grade 2 diastolic dysfunction. Continue carvedilol. started on Entresto per Cardiology recommendations on 02/22. IV Lasix x1 ordered today see if he will make some urine (6) Elevated troponin: Code(s): R77.8 - Other specified abnormalities of plasma proteins Status: Acute Assessment and Plan: Troponin elevated from baseline with peak 5.58. initial documentation states patient complai
[2022-03-01] MEDS: FUROSEMIDE INJ 40 MG/4 ML VIAL IV PUSH (17:59)
[2022-03-01] MEDS: metroNIDAZOLE 500 MG/ISO 100ML 500 MG/100 ML BAG 100 MG IVPB (18:00)
[2022-03-01 20:07] LABS: Vancomycin Random 14.9 ug/mL (10-20)
[2022-03-01] MEDS: EPOETIN ALFA-EPBX 4,000 UNITS/ML VIAL 4000 UNITS SUB-Q (20:40)
[2022-03-02] VITALS (15 sets, daily range): BP systolic 107–117; BP diastolic 74–81; PULSE 78–133; RESP 17–18; TEMP 36.1–36.5; O2SAT 97–99
[2022-03-02] MEDS: metroNIDAZOLE 500 MG/ISO 100ML 500 MG/100 ML BAG 100 MG IVPB ×4 (00:22→17:34)
[2022-03-02] MEDS: METOPROLOL TARTRATE INJ 5 MG/5 ML VIAL IV PUSH (02:40)
[2022-03-02 05:59] LABS: Basophils Percent Auto 0.1 % (0.2-1.2); Eosinophils Percent Auto 0.3 % (0-4.4); Hematocrit 32.6 % (42.0-52.0); Hemoglobin 9.6 g/dL (14.0-18.0); Immature Granulocyte Absolute 0.13 K/mm3 (0.00-0.031); Lymphocytes Absolute Auto 0.64 K/mm3 (0.9-3.2); Lymphocytes Percent Auto 4.7 % (18.3-44.2); Mean Corpuscular HGB Conc 29.4 g/dl (32-36); Mean Corpuscular Hemoglobin 31.9 pg (26-34); Mean Corpuscular Volume 108.3 fl (80-100); Mean Platelet Volume 11.7 fl (7.4-10.4); Monocytes Absolute Auto 1.7 K/mm3 (0.1-0.6); Monocytes Percent Auto 12.3 % (2.6-8.5); Neutrophils Absolute Auto 11.1 K/mm3 (1.3-6.7); Neutrophils Percent Auto 81.6 % (45.5-73.1); Nucleated Red Blood Cells Absolute Auto 0.3 K/mm3 (0.0-0.012); Nucleated Red Blood Cells Perc 2.2 % (0.0-0.2); Platelet Count Result 172 k/mm3 (150-375); Red Blood Count 3.01 M/mm3 (4.6-6.20); Red Cell Distribution Width 22.3 % (11.5-14.5); White Blood Count 13.6 K/mm3 (4.5-10.0)
[2022-03-02 06:11] LABS: Alanine Aminotransferase 273 U/L (6-50); Alkaline Phosphatase 104 U/L (38-126); Anion Gap 9 mmol/L (8-16); Aspartate Amino Transferase 244 U/L (17-59); Bilirubin,Total 1.8 mg/dL (0.2-1.3); Blood Urea Nitrogen 48 mg/dL (9-20); Calcium 7.5 mg/dL (8.4-10.2); Carbon Dioxide 31 mmol/L (22-30); Chloride 98 mmol/L (98-107); Estimated CRCL calculation 13 ml/min; Estimated Glomerular Filt Rate 15; Glucose 92 mg/dL (65-110); Magnesium 2.3 mg/dL (1.6-2.3); Sodium 138 mmol/L (137-145)
[2022-03-02 06:19] LABS: CRP 12.7 mg/dL (<1.0)
[2022-03-02 06:35] LABS: Anisocytosis 1+ (NORMAL); Hypochromasia 1+ (NORMAL); Macrocytosis 1+ (NORMAL); Ovalocytes 1+ (NORMAL); Platelet Estimate Adequate (Adequate); Schistocytes None Seen (NORMAL)
[2022-03-02] MEDS: VITAMIN B CMPLX/VIT C/FOLIC AC 1 CAPSULE 1 CAP PO (10:02)
[2022-03-02] MEDS: CHOLECALCIFEROL 1,000 UNITS TABLET 2000 UNITS PO (10:03)
[2022-03-02] MEDS: calcitrioL 0.25 MCG CAPSULE PO (10:03)
[2022-03-02] MEDS: guaiFENesin 12 HR 600 MG TABCR PO ×2 (10:03→21:25)
[2022-03-02] MEDS: METOPROLOL SUCCINATE EXT REL 50 MG TABCR PO ×2 (10:03→21:25)
[2022-03-02] MEDS: AMIODARONE HCL 200 MG TABLET PO ×2 (10:03→17:33)
[2022-03-02] MEDS: SACUBITRIL/VALSARTAN 24-26 MG TABLET 1 TAB PO ×2 (10:04→21:25)
[2022-03-02] MEDS: APIXABAN 2.5 MG TABLET PO ×2 (10:04→17:33)
[2022-03-02] MEDS: CEFEPIME 0.5 GM in DEXTROSE 5% IN WATER 50 ML IVPB (10:04)
[2022-03-02] MEDS: VENLAFAXINE HCL 75 MG TABLET PO ×2 (10:04→17:34)
[2022-03-02] MEDS: SEVELAMER CARBONATE 800 MG TABLET PO (10:05)
[2022-03-02] MEDS: allopurinoL 150 MG TABLET BY MOUTH (10:05)
[2022-03-02] MEDS: SILVERGEL (ELTA) 45 ML 1 APPLIC TOPICAL (10:05)
--- NOTE | 2022-03-02 11:35 | PCSTNOTE ---
Patient refused speech therapy today.
--- NOTE | 2022-03-02 12:23 | PCOTNOTE ---
Addendum entered by WAI Treviño 03/02/22 13:11: Pt's Son was present at end of session. Therapist updated Pt's son on pt's decrease participation in therapy affecting his strengthening and independence with daily occupations. Original Note: Attempted to see pt for Occupational Therapy treatment. Pt declined to participate in any therapeutic activities due to fatigue, decrease alertness, and unable to keep eyes open. Pt was educated and encouraged to sit up in the recliner however, continues to decline. Pt's SUGAR REFINER reports that he is requiring to be fed from staff. Will continue per poc duration/frequency tomorrow.
--- NOTE | 2022-03-02 14:34 | PM.IMPN ---
Progress Note: A&P Assessment and Plan (1) Sepsis: Code(s): A41.9 - Sepsis, unspecified organism Status: Acute Assessment and Plan: Patient septic evident by leukocytosis, tachypnea, tachycardia in the setting of suspected aspiration pneumonia. WBC continues to improve. Blood culture note growth Repeat blood cultures obtained, No growth to date MRSA nares screen negative Procalcitonin elevated, however may be elevated given ESRD. Repeat CXR with increased left lower lobe atelectasis/consolidation and patchy bilateral pulmonary opacities. Concern for aspiration pneumonia and patient was started on vancomycin and cefepime on 02/25. implement aspiration precautions. appreciate speech therapy eval. Recommend mildly thickened liquids and minced and moist diet continue curent antibioics. Procalcitonin level improved but is still elevated wbc improved Added Flagyl (2) Acute respiratory failure with hypoxia: Code(s): J96.01 - Acute respiratory failure with hypoxia Status: Acute Assessment and Plan: Presented from nursing facility with sudden onset of shortness of breath and O2 sats 56% on room air. Suspect multifactorial in etiology secondary to hypervolemia from missed dialysis, CHF, COVID-19. CXR revealed diffuse lung disease consistent with pulmonary edema versus pneumonia. He was able to be weaned from BiPAP and is now maintaining adequate O2 sats on room air. Continue supplemental oxygen as needed with goal sats 92% or above. (3) Flash pulmonary edema: Code(s): J81.0 - Acute pulmonary edema Status: Acute Assessment and Plan: Likely secondary to missed dialysis. CXR reveals findings of pulmonary edema and small left pleural effusion. Nephrology consulted for dialysis management and patient had improvement in volume status and respiratory symptoms following hemodialysis. Continue to monitor volume status and continue with dialysis schedule repeat chest x-ray today with diffuse opacities improved in the mid and upper lung zones stable in the lung bases consistent with pneumonia versus pulmonary edema cxr with improving edema however still congested with bilateral lower extremity edema There are not able to get the fluid off from the dialysis Some reports he still makes urine will give a dose of Lasix IV as tolerated Further AFib control with increased dose of amiodarone and metoprolol Another dose of Lasix 80 mg IV x1 today (4) COVID-19: Code(s): U07.1 - COVID-19 Status: Acute Assessment and Plan: COVID positive on 02/17/2022. Patient received 2 doses of steroids at nursing facility. Completed 5 days of IV dexamethasone, discontinued on 02/24 fat as he had no ongoing oxygen requirement. Patient not a candidate for remdesivir given his renal failure. Supportive care provided including bronchodilators, expectorants, incentive spirometry, Cornet. Implement isolation precautions. Patient completed COVID vaccination and booster. monitor inflammatory markers Repeat chest x-ray with congestive changes, patchy opacities. reviewed personally. (5) Systolic CHF: Code(s): I50.20 - Unspecified systolic (congestive) heart failure Status: Acute Assessment and Plan: Likely contributing to acute respiratory failure. Last echocardiogram revealed left ventricular systolic function with moderately to severely reduced EF of 35-40%. BNP is >62060. volume status improved with hemodialysis. Continue to monitor volume status with accurate I&Os. repeat echocardiogram on 02/21 revealed EF of 30-35% with grade 2 diastolic dysfunction. Continue carvedilol. started on Entresto per Cardiology recommendations on 02/22. IV Lasix x1 ordered again to see if he will make some urine (6) Elevated troponin: Code(s): R77.8 - Other specified abnormalities of plasma proteins Status: Acute Assessment and Plan: Troponin elevated from baseline with pe
[2022-03-02] MEDS: FUROSEMIDE INJ 100 MG/10 ML VIAL 80 MG IV PUSH (15:37)
[2022-03-03] VITALS (14 sets, daily range): BP systolic 108–125; BP diastolic 74–91; PULSE 91–118; RESP 16–18; TEMP 36.4–36.6; O2SAT 90–99
[2022-03-03] MEDS: metroNIDAZOLE 500 MG/ISO 100ML 500 MG/100 ML BAG 100 MG IVPB ×5 (00:04→23:07)
[2022-03-03 05:44] LABS: Basophils Percent Auto 0.1 % (0.2-1.2); Eosinophils Percent Auto 0.2 % (0-4.4); Hematocrit 33.4 % (42.0-52.0); Immature Granulocyte Absolute 0.13 K/mm3 (0.00-0.031); Immature Granulocyte Percent A 0.9 % (0-0.5); Lymphocytes Absolute Auto 0.56 K/mm3 (0.9-3.2); Mean Corpuscular HGB Conc 29.9 g/dl (32-36); Mean Corpuscular Hemoglobin 32.3 pg (26-34); Mean Corpuscular Volume 107.7 fl (80-100); Mean Platelet Volume 11.7 fl (7.4-10.4); Monocytes Absolute Auto 1.7 K/mm3 (0.1-0.6); Monocytes Percent Auto 12.1 % (2.6-8.5); Neutrophils Absolute Auto 11.5 K/mm3 (1.3-6.7); Neutrophils Percent Auto 82.7 % (45.5-73.1); Nucleated Red Blood Cells Absolute Auto 0.2 K/mm3 (0.0-0.012); Nucleated Red Blood Cells Perc 1.4 % (0.0-0.2); Platelet Count Result 161 k/mm3 (150-375); Red Cell Distribution Width 22.2 % (11.5-14.5); White Blood Count 13.9 K/mm3 (4.5-10.0)
[2022-03-03 07:09] LABS: Platelet Estimate Adequate (Adequate)
[2022-03-03 07:10] LABS: Anisocytosis 2+ (NORMAL); Hypochromasia 1+ (NORMAL); Macrocytosis 1+ (NORMAL); Ovalocytes 1+ (NORMAL); Target Cells 1+ (NORMAL); Tear Drop Cells 1+ (NORMAL)
[2022-03-03 07:11] LABS: Alanine Aminotransferase 251 U/L (6-50); Albumin Level 2.7 g/dL (3.5-5.1); Alkaline Phosphatase 101 U/L (38-126); Aspartate Amino Transferase 172 U/L (17-59); Bilirubin,Total 1.6 mg/dL (0.2-1.3); Blood Urea Nitrogen 59 mg/dL (9-20); Calcium 7.8 mg/dL (8.4-10.2); Carbon Dioxide 30 mmol/L (22-30); Estimated CRCL calculation 10 ml/min; Estimated Glomerular Filt Rate 10; Glucose 88 mg/dL (65-110); Magnesium 2.4 mg/dL (1.6-2.3); Poikilocytosis 1+ (NORMAL); Potassium 4.5 mmol/L (3.4-5.0); Schistocytes None Seen (NORMAL); Sodium 135 mmol/L (137-145)
[2022-03-03 07:25] LABS: Anion Gap 11 mmol/L (8-16); Chloride 94 mmol/L (98-107)
--- NOTE | 2022-03-03 08:00 | PCOTNOTE ---
Decreased frequency of OT treatments to 2-3x/wk, as pt. displays decreased interest and refuses to participate in OT treatments at higher frequency of treatment
[2022-03-03] MEDS: AMIODARONE HCL 200 MG TABLET PO ×2 (09:18→17:07)
[2022-03-03] MEDS: allopurinoL 150 MG TABLET BY MOUTH (09:18)
[2022-03-03] MEDS: SACUBITRIL/VALSARTAN 24-26 MG TABLET 1 TAB PO ×2 (09:19→20:04)
[2022-03-03] MEDS: calcitrioL 0.25 MCG CAPSULE PO (09:19)
[2022-03-03] MEDS: APIXABAN 2.5 MG TABLET PO ×2 (09:19→17:08)
[2022-03-03] MEDS: CHOLECALCIFEROL 1,000 UNITS TABLET 2000 UNITS PO (09:19)
[2022-03-03] MEDS: guaiFENesin 12 HR 600 MG TABCR PO ×2 (09:19→20:04)
[2022-03-03] MEDS: SEVELAMER CARBONATE 800 MG TABLET PO ×2 (09:20→17:08)
[2022-03-03] MEDS: VENLAFAXINE HCL 75 MG TABLET PO ×2 (09:20→17:08)
[2022-03-03] MEDS: VITAMIN B CMPLX/VIT C/FOLIC AC 1 CAPSULE 1 CAP PO (09:20)
[2022-03-03] MEDS: METOPROLOL SUCCINATE EXT REL 25 MG TABCR 75 MG PO ×2 (09:29→20:04)
[2022-03-03] MEDS: CEFEPIME 0.5 GM in DEXTROSE 5% IN WATER 50 ML IVPB (09:30)
--- NOTE | 2022-03-03 10:46 | P.PNIM_ITS ---
Progress Note: A&P Assessment and Plan (1) Sepsis: Code(s): A41.9 - Sepsis, unspecified organism Status: Acute Assessment and Plan: Patient septic evident by leukocytosis, tachypnea, tachycardia in the setting of suspected aspiration pneumonia. WBC continues to improve. Blood culture note growth Repeat blood cultures obtained, No growth to date MRSA nares screen negative Procalcitonin elevated, however may be elevated given ESRD. Repeat CXR with increased left lower lobe atelectasis/consolidation and patchy bilateral pulmonary opacities. Concern for aspiration pneumonia and patient was started on vancomycin and cefepime on 02/25. implement aspiration precautions. appreciate speech therapy eval. Recommend mildly thickened liquids and minced and moist diet continue curent antibioics. Procalcitonin level improved but is still elevated wbc improved Added Flagyl (2) Acute respiratory failure with hypoxia: Code(s): J96.01 - Acute respiratory failure with hypoxia Status: Acute Assessment and Plan: Presented from nursing facility with sudden onset of shortness of breath and O2 sats 56% on room air. Suspect multifactorial in etiology secondary to hypervolemia from missed dialysis, CHF, COVID-19. CXR revealed diffuse lung disease consistent with pulmonary edema versus pneumonia. He was able to be weaned from BiPAP and is now maintaining adequate O2 sats on room air. Continue supplemental oxygen as needed with goal sats 92% or above. (3) Flash pulmonary edema: Code(s): J81.0 - Acute pulmonary edema Status: Acute Assessment and Plan: Likely secondary to missed dialysis. CXR reveals findings of pulmonary edema and small left pleural effusion. Nephrology consulted for dialysis management and patient had improvement in volume status and respiratory symptoms following hemodialysis. Continue to monitor volume status and continue with dialysis schedule repeat chest x-ray today with diffuse opacities improved in the mid and upper lung zones stable in the lung bases consistent with pneumonia versus pulmonary edema cxr with improving edema however still congested with bilateral lower extremity edema There are not able to get the fluid off from the dialysis Some reports he still makes urine will give a dose of Lasix IV as tolerated Further AFib control with increased dose of amiodarone and metoprolol Another dose of Lasix 80 mg IV x1 03/02/2022 with not much urine output (4) COVID-19: Code(s): U07.1 - COVID-19 Status: Acute Assessment and Plan: COVID positive on 02/17/2022. Patient received 2 doses of steroids at nursing facility. Completed 5 days of IV dexamethasone, discontinued on 02/24 fat as he had no ongoing oxygen requirement. Patient not a candidate for remdesivir given his renal failure. Supportive care provided including bronchodilators, expectorants, incentive spirometry, Cornet. Implement isolation precautions. Patient completed COVID vaccination and booster. monitor inflammatory markers Repeat chest x-ray with congestive changes, patchy opacities. reviewed personally. (5) Systolic CHF: Code(s): I50.20 - Unspecified systolic (congestive) heart failure Status: Acute Assessment and Plan: Likely contributing to acute respiratory failure. Last echocardiogram revealed left ventricular systolic function with moderately to severely reduced EF of 35- 40%. BNP is >90937. volume status improved with hemodialysis. Continue to monitor volume status with accurate I&Os. repeat echocardiogram on 02/21 revealed EF of 30-35% with grade 2 diastolic dysfunction. Co
[2022-03-03] MEDS: SILVERGEL (ELTA) 45 ML 1 APPLIC TOPICAL (10:50)
[2022-03-04] VITALS (24 sets, daily range): BP systolic 93–139; BP diastolic 69–91; PULSE 87–128; RESP 16–18; TEMP 36–36.5; O2SAT 94–99; BMI 11.0
[2022-03-04] MEDS: metroNIDAZOLE 500 MG/ISO 100ML 500 MG/100 ML BAG 100 MG IVPB ×4 (05:18→23:36)
[2022-03-04 05:40] LABS: Basophils Percent Auto 0.1 % (0.2-1.2); Eosinophils Percent Auto 0.2 % (0-4.4); Hematocrit 35.1 % (42.0-52.0); Hemoglobin 10.6 g/dL (14.0-18.0); Immature Granulocyte Percent A 0.8 % (0-0.5); Lymphocytes Absolute Auto 0.64 K/mm3 (0.9-3.2); Lymphocytes Percent Auto 4.9 % (18.3-44.2); Mean Corpuscular HGB Conc 30.2 g/dl (32-36); Mean Corpuscular Hemoglobin 31.8 pg (26-34); Mean Corpuscular Volume 105.4 fl (80-100); Mean Platelet Volume 11.7 fl (7.4-10.4); Monocytes Absolute Auto 1.6 K/mm3 (0.1-0.6); Neutrophils Absolute Auto 10.8 K/mm3 (1.3-6.7); Nucleated Red Blood Cells Absolute Auto 0.2 K/mm3 (0.0-0.012); Nucleated Red Blood Cells Perc 1.1 % (0.0-0.2); Platelet Count Result 155 k/mm3 (150-375); Red Blood Count 3.33 M/mm3 (4.6-6.20); Red Cell Distribution Width 22.3 % (11.5-14.5); White Blood Count 13.2 K/mm3 (4.5-10.0)
[2022-03-04 05:50] LABS: Alanine Aminotransferase 192 U/L (6-50); Albumin Level 3.1 g/dL (3.5-5.1); Alkaline Phosphatase 100 U/L (38-126); Anion Gap 12 mmol/L (8-16); Aspartate Amino Transferase 141 U/L (17-59); Bilirubin,Total 1.8 mg/dL (0.2-1.3); Blood Urea Nitrogen 74 mg/dL (9-20); Calcium 7.7 mg/dL (8.4-10.2); Carbon Dioxide 27 mmol/L (22-30); Chloride 97 mmol/L (98-107); Estimated CRCL calculation 9 ml/min; Estimated Glomerular Filt Rate 9; Glucose 93 mg/dL (65-110); Magnesium 2.5 mg/dL (1.6-2.3); Potassium 4.6 mmol/L (3.4-5.0); Sodium 136 mmol/L (137-145)
[2022-03-04 06:34] LABS: Platelet Estimate Adequate (Adequate)
[2022-03-04 06:35] LABS: Anisocytosis 1+ (NORMAL); Poikilocytosis 1+ (NORMAL); Polychromasia 1+ (NORMAL)
[2022-03-04 06:36] LABS: Burr Cells 2+ (NORMAL); Macrocytosis 1+ (NORMAL)
[2022-03-04 06:37] LABS: Schistocytes Rare (NORMAL); Tear Drop Cells 1+ (NORMAL)
--- NOTE | 2022-03-04 09:28 | PCSTNOTE ---
The patient treatment was not able to be completed on 03/04 due to not wanting/feeling up to swallowing therapy. Will plan to continue treatment per plan of care.
[2022-03-04] MEDS: allopurinoL 150 MG TABLET BY MOUTH (10:09)
[2022-03-04] MEDS: AMIODARONE HCL 200 MG TABLET PO ×2 (10:09→20:10)
[2022-03-04] MEDS: CHOLECALCIFEROL 1,000 UNITS TABLET 2000 UNITS PO (10:10)
[2022-03-04] MEDS: APIXABAN 2.5 MG TABLET PO ×2 (10:10→20:10)
[2022-03-04] MEDS: SEVELAMER CARBONATE 800 MG TABLET PO ×2 (10:12→20:10)
[2022-03-04] MEDS: SACUBITRIL/VALSARTAN 24-26 MG TABLET 1 TAB PO ×2 (10:12→20:11)
[2022-03-04] MEDS: VENLAFAXINE HCL 75 MG TABLET PO ×2 (10:13→20:10)
[2022-03-04] MEDS: CEFEPIME 0.5 GM in DEXTROSE 5% IN WATER 50 ML IVPB (10:22)
[2022-03-04] MEDS: SILVERGEL (ELTA) 45 ML 1 APPLIC TOPICAL (10:26)
--- NOTE | 2022-03-04 10:45 | PCOTNOTE ---
Attempted to see patient this am, however patient refused. Pt difficult to understand at times due to unclear speech. Encouraged patient to participate and pt replied, No, I'm wore out. Continued to encourage, however patient closed eyes and stopped answering.
--- NOTE | 2022-03-04 12:49 | PM.PNNEP ---
Progress Note: A&P Assessment and Plan (1) ESRD (end stage renal disease) on dialysis: Code(s): N18.6 - End stage renal disease; Z99.2 - Dependence on renal dialysis Status: Acute Assessment and Plan: End-stage renal disease Hypertensive renal disease with renal failure Hyperkalemia Hyponatremia Fluid overload CHF as a result next item atrial fibrillation with rapid ventricular response anemia chronic kidney disease secondary hyperparathyroidism COVID-19 infection, pneumonia, sepsis plan: - Dialysis today - getting edema of legs - try small amount of fluid removal - needs to increase mobility as possible - follow-up of ESRD and related needs Subjective Date/time seen: 03/04/22 12:49 End-stage renal disease follow-up Review of Systems Review of Systems: not talking too much, globally weak, indicates is feeling okay, is not visibly short of breath, is on oxygen. Exam Narrative: Elderly, seems to be getting depressed, ABD negative, regular rate rhythm, no gallop, equal breath sounds, rhonchi wheeze, soft nontender abdomen, edematous legs, av shunt is patent Objective Data Vital Signs Vital Signs: Vital Signs - 24 hr 03/03/22 14:00 03/03/22 16:00 03/03/22 17:07 Temperature 36.6 C Pulse Rate 91 99 98 Respiratory Rate 18 Blood Pressure 123/79 Pulse Oximetry 99 Oxygen Delivery Oxygen Flow Rate 03/03/22 19:51 03/03/22 20:04 03/03/22 20:00 Temperature 36.4 C Pulse Rate 100 100 111 H Respiratory Rate 16 Blood Pressure 108/74 Pulse Oximetry 99 Oxygen Delivery Oxygen Flow Rate 03/04/22 00:00 03/04/22 04:00 03/04/22 06:56 Temperature 36.5 C Pulse Rate 104 H 106 H 97 Respiratory Rate 16 Blood Pressure 109/73 Pulse Oximetry 94 Oxygen Delivery Oxygen Flow Rate 03/04/22 10:09 03/04/22 08:00 03/04/22 08:00 Temperature Pulse Rate 89 87 Respiratory Rate Blood Pressure Pulse Oximetry 94 Oxygen Delivery Nasal Cannula Oxygen Flow Rate 1 Intake/Output Intake/Output: Intake & Output 03/01/22 03/02/22 03/03/22 03/04/22 23:59 23:59 23:59 23:59 Intake Total 1168 1980 840 450 Output Total 0 450 25 10 Balance 1168 1530 815 440 Meds/Results Medications: Active Medications Generic Name Dose Route Start Last Admin Trade Name Freq PRN Reason Stop Dose Admin Albuterol 2 puff 02/19/22 09:42 Albuterol Sulfate (*Sp) Aerosol 1 Puff INHALATION Q6HRT PRN Shortness Of Breath Allopurinol 150 mg 02/20/22 09:00 03/04/22 10:09 Allopurinol 150 Mg Tablet BY MOUTH 150 mg DAILY LUIS MIGUEL Administration Amiodarone HCl 200 mg 03/01/22 17:00 03/04/22 10:09 Amiodarone Hcl 200 Mg Tablet PO 200 mg BID LUIS MIGUEL Administration Apixaban 2.5 mg 02/20/22 09:00 03/04/22 10:10 Apixaban 2.5 Mg Tablet PO 2.5 mg BID LUIS MIGUEL Administration Calcitriol 0.25 mcg 02/20/22 09:00 03/04/22 10:16 Calcitriol 0.25 Mcg Capsule PO Not Given DAILY LUIS MIGUEL Epoetin Julio-epbx 4,000 units 02/20/22 20:00 03/01/22 20:40 Epoetin Juloi-Epbx 4,000 Units/Ml Vial SUB-Q 4,000 units [id number] [facility] Administration Guaifenesin 600 mg 02/19/22 10:20 03/04/22 10:16 Guaifenesin 12 Hr 600 Mg Tabcr PO Not Given Q12HR LUIS MIGUEL Cefepime HCl 0.5 gm/ Dextrose 50 mls @ 100 mls/hr 02/26/22 09:00 03/04/22 10:52 IVPB Infused Q24H LUIS MIGUEL Infusion Vancomycin HCl 1,250 mg in 250 mls @ 200 mls/hr 02/27/22 20:25 Vancomycin 1,250 Mg/D5w 250 Ml IVPB PRN PRN Kinetics Consult Metronidazole 500 mg in 100 mls @ 100 mls/hr 03/01/22 18:00 03/04/22 06:18 Flagyl 500 Mg/Iso Soln 100 Ml IVPB Infused Q6HR LUIS MIGUEL Infusion Sodium Chloride 1,000 mls @ 999 mls/hr 03/04/22 12:30 Normal Saline Iv IV CONT 03/04/22 13:30 .Q1H1M ONE Albumin Human 100 mls @ 60 mls/hr 03/04/22 12:40 Albutein IVPB 03/04/22 14:19 ONCE ONE Metoprolol Succinate 75 mg 03/03/22 09:00 03/04/22 1
--- NOTE | 2022-03-04 14:49 | PM.IMPN ---
Progress Note: A&P Assessment and Plan (1) Sepsis: Code(s): A41.9 - Sepsis, unspecified organism Status: Acute Assessment and Plan: Patient septic evident by leukocytosis, tachypnea, tachycardia in the setting of suspected aspiration pneumonia. WBC continues to improve. Blood culture note growth Repeat blood cultures obtained, No growth to date MRSA nares screen negative Procalcitonin elevated, however may be elevated given ESRD. Repeat CXR with increased left lower lobe atelectasis/consolidation and patchy bilateral pulmonary opacities. Concern for aspiration pneumonia and patient was started on vancomycin and cefepime on 02/25. implement aspiration precautions. appreciate speech therapy eval. Recommend mildly thickened liquids and minced and moist diet continue curent antibioics. Procalcitonin level improved but is still elevated wbc improved Added Flagyl cultures all negative. will stop vancomycin today. (2) Acute respiratory failure with hypoxia: Code(s): J96.01 - Acute respiratory failure with hypoxia Status: Acute Assessment and Plan: Presented from nursing facility with sudden onset of shortness of breath and O2 sats 56% on room air. Suspect multifactorial in etiology secondary to hypervolemia from missed dialysis, CHF, COVID-19. CXR revealed diffuse lung disease consistent with pulmonary edema versus pneumonia. He was able to be weaned from BiPAP and is now maintaining adequate O2 sats on room air. Continue supplemental oxygen as needed with goal sats 92% or above. dialysis prn. discussed with repulping supervisor for removal of fluid. (3) Flash pulmonary edema: Code(s): J81.0 - Acute pulmonary edema Status: Acute Assessment and Plan: Likely secondary to missed dialysis. CXR reveals findings of pulmonary edema and small left pleural effusion. Nephrology consulted for dialysis management and patient had improvement in volume status and respiratory symptoms following hemodialysis. Continue to monitor volume status and continue with dialysis schedule repeat chest x-ray today with diffuse opacities improved in the mid and upper lung zones stable in the lung bases consistent with pneumonia versus pulmonary edema cxr with improving edema however still congested with bilateral lower extremity edema There are not able to get the fluid off from the dialysis Some reports he still makes urine will give a dose of Lasix IV as tolerated Further AFib control with increased dose of amiodarone and metoprolol Another dose of Lasix 80 mg IV x1 03/02/2022 with not much urine output (4) COVID-19: Code(s): U07.1 - COVID-19 Status: Acute Assessment and Plan: COVID positive on 02/17/2022. Patient received 2 doses of steroids at nursing facility. Completed 5 days of IV dexamethasone, discontinued on 02/24 fat as he had no ongoing oxygen requirement. Patient not a candidate for remdesivir given his renal failure. Supportive care provided including bronchodilators, expectorants, incentive spirometry, Cornet. Implement isolation precautions. Patient completed COVID vaccination and booster. monitor inflammatory markers Repeat chest x-ray with congestive changes, patchy opacities. reviewed personally. (5) Systolic CHF: Code(s): I50.20 - Unspecified systolic (congestive) heart failure Status: Acute Assessment and Plan: Likely contributing to acute respiratory failure. Last echocardiogram revealed left ventricular systolic function with moderately to severely reduced EF of 35-40%. BNP is >71220. volume status improved with hemodialysis. Continue to monitor volume status with accurate I&Os. repeat echocardiogram on 02/21 revealed EF of 30-35% with grade 2 diastolic dysfunction. Continue carvedilol. started on Entresto per Cardiology recommendations on 02/22. IV Lasix x1 ordered again to see if he will make some urine (6) Elevated troponin: Code(s)
[2022-03-04] MEDS: ALBUMIN HUMAN 25% 12.5 GM/50ML 100 ML IVPB (15:58)
[2022-03-04] MEDS: SODIUM CHLORIDE 0.9% IV 1,000 ML 999 ML IV CONT (15:58)
[2022-03-04] MEDS: guaiFENesin 12 HR 600 MG TABCR PO (20:10)
[2022-03-04] MEDS: METOPROLOL TARTRATE TAB 25 MG, METOPROLOL TARTRATE TAB 50 MG 75 MG PO (20:11)
[2022-03-04] MEDS: EPOETIN ALFA-EPBX 10,000 UNITS/ML VIAL 4000 UNITS SUB-Q (20:26)
[2022-03-04 20:45] LABS: Vancomycin Random 19.5 ug/mL (10-20)
[2022-03-05] VITALS (14 sets, daily range): BP systolic 103–125; BP diastolic 71–92; PULSE 68–119; RESP 16–18; TEMP 36.1–37.1; O2SAT 94–100
[2022-03-05] MEDS: metroNIDAZOLE 500 MG/ISO 100ML 500 MG/100 ML BAG 100 MG IVPB ×4 (05:05→23:09)
[2022-03-05 05:20] LABS: Mean Corpuscular HGB Conc 29.7 g/dl (32-36); Mean Corpuscular Hemoglobin 32.4 pg (26-34); Mean Corpuscular Volume 108.8 fl (80-100); Mean Platelet Volume 11.4 fl (7.4-10.4); Platelet Count Result 143 k/mm3 (150-375); Red Cell Distribution Width 23.1 % (11.5-14.5); White Blood Count 12.2 K/mm3 (4.5-10.0)
[2022-03-05 05:33] LABS: Alanine Aminotransferase 159 U/L (6-50); Albumin Level 2.8 g/dL (3.5-5.1); Alkaline Phosphatase 90 U/L (38-126); Anion Gap 9 mmol/L (8-16); Aspartate Amino Transferase 111 U/L (17-59); Bilirubin,Total 1.7 mg/dL (0.2-1.3); Blood Urea Nitrogen 44 mg/dL (9-20); Calcium 7.5 mg/dL (8.4-10.2); Carbon Dioxide 25 mmol/L (22-30); Chloride 98 mmol/L (98-107); Estimated CRCL calculation 13 ml/min; Estimated Glomerular Filt Rate 14; Glucose 72 mg/dL (65-110); Magnesium 2.4 mg/dL (1.6-2.3); Potassium 3.7 mmol/L (3.4-5.0); Sodium 132 mmol/L (137-145)
[2022-03-05 06:10] LABS: Band Neutrophils Percent 1 % (0-6); Eosinophils Absolute Manual 0.12 K/mm3 (0.02-0.5); Eosinophils Percent Manual 1 % (0-4); Lymphocytes Absolute Manual 1.22 K/mm3 (1.1-4.5); Macrocytosis 2+ (NORMAL); Monocytes Absolute Manual 0.97 K/mm3 (0.1-0.90); Monocytes Percent Manual 8 % (3-9); Neutrophils Absolute Manual 9.88 K/mm3 (1.3-6.7); Neutrophils Percent Manual 80 % (46-73); Nucleated Red Blood Cells 1 %; Platelet Estimate Decreased (Adequate); Schistocytes None Seen (NORMAL); Smudge Cells PRESENT; Target Cells 1+ (NORMAL); Total Cells Counted 100
[2022-03-05 06:11] LABS: Acanthocytes 1+ (NORMAL); Burr Cells 1+ (NORMAL); Crenated RBC 1+ (NORMAL); Spherocytes 1+ (NORMAL)
--- NOTE | 2022-03-05 09:04 | PM.PNNEP ---
Progress Note: A&P Assessment and Plan (1) ESRD (end stage renal disease) on dialysis: Code(s): N18.6 - End stage renal disease; Z99.2 - Dependence on renal dialysis Status: Acute Assessment and Plan: End-stage renal disease Hypertensive renal disease with renal failure Hyperkalemia Hyponatremia Fluid overload CHF as a result next item atrial fibrillation with rapid ventricular response anemia chronic kidney disease secondary hyperparathyroidism COVID-19 infection, pneumonia, sepsis Plan ?plan: -? Dialysis Tomorrow - remove fluid as tolerated - follow-up of ESRD and related needs Subjective Date/time seen: 03/05/22 09:04 end-stage renal disease follow-up. Not much verbal. Pretty months same as yesterday. Exam Narrative: Elderly, weak globally, JVD negative, regular rate rhythm, diminished breath sounds, no rub wheeze, soft nontender abdomen, edema of legs noted, awakens and answers weakly. Objective Data Vital Signs Vital Signs: Vital Signs - 24 hr 03/04/22 10:09 03/04/22 12:00 03/04/22 14:37 Temperature 36.4 C Pulse Rate 89 99 98 Respiratory Rate 16 Blood Pressure 139/84 Pulse Oximetry Fraction of Inspired Oxygen 03/04/22 14:37 03/04/22 14:48 03/04/22 15:00 Temperature Pulse Rate 89 94 Respiratory Rate Blood Pressure 131/91 H 136/87 Pulse Oximetry Fraction of Inspired Oxygen 2 03/04/22 15:20 03/04/22 15:40 03/04/22 16:00 Temperature Pulse Rate 119 H 121 H 120 H Respiratory Rate Blood Pressure 127/89 105/75 105/69 Pulse Oximetry Fraction of Inspired Oxygen 03/04/22 16:20 03/04/22 16:40 03/04/22 17:00 Temperature Pulse Rate 123 H 126 H 126 H Respiratory Rate Blood Pressure 93/82 L 95/70 L 96/70 L Pulse Oximetry Fraction of Inspired Oxygen 03/04/22 17:20 03/04/22 17:40 03/04/22 16:00 Temperature Pulse Rate 126 H 126 H 121 H Respiratory Rate Blood Pressure 115/83 113/74 Pulse Oximetry Fraction of Inspired Oxygen 03/04/22 18:00 03/04/22 18:19 03/04/22 18:35 Temperature 36.3 C L Pulse Rate 128 H 121 H 121 H Respiratory Rate 16 Blood Pressure 122/82 108/86 137/87 Pulse Oximetry Fraction of Inspired Oxygen 03/04/22 19:57 03/04/22 20:10 03/04/22 20:11 Temperature 36.2 C L Pulse Rate 112 H 110 H 110 H Respiratory Rate 18 Blood Pressure 113/79 Pulse Oximetry 99 Fraction of Inspired Oxygen 03/04/22 20:00 03/05/22 00:00 03/05/22 04:00 Temperature Pulse Rate 109 H 110 H 101 H Respiratory Rate Blood Pressure Pulse Oximetry Fraction of Inspired Oxygen 03/05/22 04:49 Temperature 36.1 C L Pulse Rate 112 H Respiratory Rate 16 Blood Pressure 124/86 Pulse Oximetry 100 Fraction of Inspired Oxygen Intake/Output Intake/Output: Intake & Output 03/02/22 03/03/22 03/04/22 03/05/22 23:59 23:59 23:59 23:59 Intake Total 1980 840 650 200 Output Total 948 54 8617 0 Balance 1530 815 -1360 200 Meds/Results Medications: Active Medications Generic Name Dose Route Start Last Admin Trade Name Freq PRN Reason Stop Dose Admin Albuterol 2 puff 02/19/22 09:42 Albuterol Sulfate (*Sp) Aerosol 1 Puff INHALATION Q6HRT PRN Shortness Of Breath Allopurinol 150 mg 02/20/22 09:00 03/04/22 10:09 Allopurinol 150 Mg Tablet BY MOUTH 150 mg DAILY LUIS MIGUEL Administration Amiodarone HCl 200 mg 03/01/22 17:00 03/04/22 20:10 Amiodarone Hcl 200 Mg Tablet PO 200 mg BID LUIS MIGUEL Administration Apixaban 2.5 mg 02/20/22 09:00 03/04/22 20:10 Apixaban 2.5 Mg Tablet PO 2.5 mg BID LUIS MIGUEL Administration Calcitriol 0.25 mcg 02/20/22 09:00 03/04/22 10:16 Calcitriol 0.25 Mcg Capsule PO Not Given DAILY [facility] Epoetin Julio-epbx 4,000 units 03/06/22 20:00 Epoetin Julio-Epbx 4,000 Units/Ml Vial SUB-Q [id number] [facility] Guaifenesin 600 mg 02/19/22 10:20 03/04/22 20:10 Guaifenesin 12 Hr 600 M
[2022-03-05] MEDS: allopurinoL 150 MG TABLET BY MOUTH (09:43)
[2022-03-05] MEDS: APIXABAN 2.5 MG TABLET PO ×2 (09:44→17:41)
[2022-03-05] MEDS: METOPROLOL TARTRATE 50 MG TAB 100 MG PO ×2 (09:44→20:46)
[2022-03-05] MEDS: AMIODARONE HCL 200 MG TABLET PO ×2 (09:45→17:41)
[2022-03-05] MEDS: SACUBITRIL/VALSARTAN 24-26 MG TABLET 1 TAB PO ×2 (09:46→20:46)
[2022-03-05] MEDS: CEFEPIME 0.5 GM in DEXTROSE 5% IN WATER 50 ML IVPB (09:50)
--- NOTE | 2022-03-05 13:18 | PM.IMPN ---
Progress Note: A&P Assessment and Plan (1) Sepsis: Code(s): A41.9 - Sepsis, unspecified organism Status: Acute Assessment and Plan: Patient septic evident by leukocytosis, tachypnea, tachycardia in the setting of suspected aspiration pneumonia. WBC continues to improve but mildly persistent. Blood culture no growth Repeat blood cultures obtained, No growth to date MRSA nares screen negative Procalcitonin elevated, however may be elevated given ESRD. Repeat CXR with increased left lower lobe atelectasis/consolidation and patchy bilateral pulmonary opacities. Concern for aspiration pneumonia and patient was started on vancomycin 02/25 to 03/04. Continue cefepime started on 02/25. implement aspiration precautions. appreciate speech therapy eval. Recommend mildly thickened liquids and minced and moist diet continue curent antibioics. Procalcitonin level improved but is still elevated. Will recheck procalcitonin today wbc improved Added Flagyl 03/01/2022- cultures all negative. Finished vancomycin course (2) Acute respiratory failure with hypoxia: Code(s): J96.01 - Acute respiratory failure with hypoxia Status: Acute Assessment and Plan: Presented from nursing facility with sudden onset of shortness of breath and O2 sats 56% on room air. Suspect multifactorial in etiology secondary to hypervolemia from missed dialysis, CHF, COVID-19. CXR revealed diffuse lung disease consistent with pulmonary edema versus pneumonia. He was able to be weaned from BiPAP and is now maintaining adequate O2 sats on room air. Continue supplemental oxygen as needed with goal sats 92% or above. dialysis prn. discussed with induction heat treater for removal of fluid. Hemodialysis 03/04/2022 2 L removed Continue dialysis to remove fluid as tolerated (3) Flash pulmonary edema: Code(s): J81.0 - Acute pulmonary edema Status: Acute Assessment and Plan: Likely secondary to missed dialysis. CXR reveals findings of pulmonary edema and small left pleural effusion. Nephrology consulted for dialysis management and patient had improvement in volume status and respiratory symptoms following hemodialysis. Continue to monitor volume status and continue with dialysis schedule repeat chest x-ray today with diffuse opacities improved in the mid and upper lung zones stable in the lung bases consistent with pneumonia versus pulmonary edema cxr with improving edema however still congested with bilateral lower extremity edema There are not able to get the fluid off from the dialysis Some reports he still makes urine will give a dose of Lasix IV as tolerated Further AFib control with increased dose of amiodarone and metoprolol Another dose of Lasix 80 mg IV x1 03/02/2022 with not much urine output Continue hemodialysis to remove fluid as tolerated (4) COVID-19: Code(s): U07.1 - COVID-19 Status: Acute Assessment and Plan: COVID positive on 02/17/2022. Patient received 2 doses of steroids at nursing facility. Completed 5 days of IV dexamethasone, discontinued on 02/24 fat as he had no ongoing oxygen requirement. Patient not a candidate for remdesivir given his renal failure. Supportive care provided including bronchodilators, expectorants, incentive spirometry, Cornet. Implement isolation precautions. Patient completed COVID vaccination and booster. monitor inflammatory markers Repeat chest x-ray with congestive changes, patchy opacities. reviewed personally. (5) Systolic CHF: Code(s): I50.20 - Unspecified systolic (congestive) heart failure Status: Acute Assessment and Plan: Likely contributing to acute respiratory failure. Last echocardiogram revealed left ventricular systolic function with moderately to severely reduced EF of 35-40%. BNP is >93459. volume status improved with hemodialysis. Continue to monitor volume status with accurate I&Os. repeat echocardiogram on 02/21 revealed EF
[2022-03-05] MEDS: MEGESTROL ACETATE (*CHEMO) ORAL SUSP 40 MG/ML SYR 400 MG PO (17:40)
[2022-03-05] MEDS: VENLAFAXINE HCL 75 MG TABLET PO (17:41)
[2022-03-05] MEDS: SILVERGEL (ELTA) 45 ML 1 APPLIC TOPICAL (17:42)
[2022-03-05] MEDS: VENLAFAXINE HCL 25 MG TABLET PO (17:42)
[2022-03-05] MEDS: guaiFENesin 12 HR 600 MG TABCR PO (20:46)
[2022-03-05 21:47] LABS: Procalcitonin 4.3 ng/mL
[2022-03-06] VITALS (24 sets, daily range): BP systolic 79–130; BP diastolic 52–82; PULSE 86–123; RESP 12–20; TEMP 36–36.9; O2SAT 96–98
[2022-03-06] MEDS: metroNIDAZOLE 500 MG/ISO 100ML 500 MG/100 ML BAG 100 MG IVPB ×4 (05:12→23:36)
[2022-03-06 05:44] LABS: Basophils Percent Auto 0.1 % (0.2-1.2); Eosinophils Percent Auto 0.2 % (0-4.4); Hematocrit 34.3 % (42.0-52.0); Hemoglobin 10.3 g/dL (14.0-18.0); Immature Granulocyte Absolute 0.09 K/mm3 (0.00-0.031); Immature Granulocyte Percent A 0.8 % (0-0.5); Lymphocytes Absolute Auto 0.82 K/mm3 (0.9-3.2); Lymphocytes Percent Auto 7.6 % (18.3-44.2); Mean Corpuscular Hemoglobin 31.9 pg (26-34); Mean Corpuscular Volume 106.2 fl (80-100); Mean Platelet Volume 10.5 fl (7.4-10.4); Monocytes Absolute Auto 1.4 K/mm3 (0.1-0.6); Monocytes Percent Auto 12.5 % (2.6-8.5); Neutrophils Absolute Auto 8.5 K/mm3 (1.3-6.7); Neutrophils Percent Auto 78.8 % (45.5-73.1); Nucleated Red Blood Cells Perc 0.4 % (0.0-0.2); Platelet Count Result 141 k/mm3 (150-375); Red Blood Count 3.23 M/mm3 (4.6-6.20); Red Cell Distribution Width 22.5 % (11.5-14.5); White Blood Count 10.8 K/mm3 (4.5-10.0)
[2022-03-06 05:55] LABS: Alanine Aminotransferase 130 U/L (6-50); Albumin Level 2.7 g/dL (3.5-5.1); Alkaline Phosphatase 93 U/L (38-126); Anion Gap 10 mmol/L (8-16); Aspartate Amino Transferase 101 U/L (17-59); Bilirubin,Total 1.7 mg/dL (0.2-1.3); Blood Urea Nitrogen 57 mg/dL (9-20); Calcium 7.6 mg/dL (8.4-10.2); Carbon Dioxide 30 mmol/L (22-30); Chloride 99 mmol/L (98-107); Estimated CRCL calculation 10 ml/min; Estimated Glomerular Filt Rate 10; Glucose 81 mg/dL (65-110); Magnesium 2.3 mg/dL (1.6-2.3); Potassium 3.4 mmol/L (3.4-5.0); Sodium 139 mmol/L (137-145)
[2022-03-06] MEDS: MEGESTROL ACETATE (*CHEMO) ORAL SUSP 40 MG/ML SYR 400 MG PO (06:23)
[2022-03-06 06:43] LABS: Target Cells 1+ (NORMAL)
[2022-03-06 06:44] LABS: Anisocytosis 1+ (NORMAL); Macrocytosis 1+ (NORMAL); Microcytosis 1+ (NORMAL); Schistocytes Rare (NORMAL)
[2022-03-06 06:45] LABS: Poikilocytosis 1+ (NORMAL)
[2022-03-06] MEDS: SODIUM CHLORIDE 0.9% IV 1,000 ML 999 ML IV CONT ×2 (08:46)
[2022-03-06] MEDS: EPOETIN ALFA-EPBX 4,000 UNITS/ML VIAL 4000 UNITS SUB-Q (08:47)
--- NOTE | 2022-03-06 10:35 | PC.NURSE ---
pt returned from dialysis via bed
--- NOTE | 2022-03-06 10:52 | PM.PNNEP ---
Progress Note: A&P Assessment and Plan (1) ESRD (end stage renal disease) on dialysis: Code(s): N18.6 - End stage renal disease; Z99.2 - Dependence on renal dialysis Status: Acute Assessment and Plan: End-stage renal disease Hypertensive renal disease with renal failure Hyperkalemia Hyponatremia Fluid overload CHF as a result next item atrial fibrillation with rapid ventricular response anemia chronic kidney disease secondary hyperparathyroidism COVID-19 infection, pneumonia, sepsis plan: -ultrafiltration not tolerated -dialyze - blood pressure support -will discuss with hospitalist team, is on metoprolol for heart rate control, however blood pressure running low. Will need to discuss with Cardiology team as well to see if there is any other way to get heart rate down, and keep blood pressure sustained Subjective Date/time seen: 03/06/22 10:52 End-stage renal disease follow up Review of Systems Review of Systems: had dialysis earlier today. Did not tolerate. No fluid removal. Still has swelling. Exam Narrative: Seen and examined in the room, diabetes negative, regular rate rhythm, no gallop, no rub , abdomen soft nontender abdomen, edematous legs. Objective Data Vital Signs Vital Signs: Vital Signs - 24 hr 03/05/22 12:00 03/05/22 14:00 03/05/22 17:41 Temperature 37.1 C Pulse Rate 114 H 68 102 H Respiratory Rate 16 Blood Pressure 125/92 H Pulse Oximetry 99 Oxygen Flow Rate 03/05/22 19:10 03/05/22 16:00 03/05/22 20:46 Temperature 36.2 C L Pulse Rate 110 H 99 105 H Respiratory Rate 18 Blood Pressure 103/71 Pulse Oximetry 94 Oxygen Flow Rate 03/05/22 20:00 03/06/22 00:00 03/06/22 03:05 Temperature 36.1 C L Pulse Rate 107 H 86 113 H Respiratory Rate 17 Blood Pressure 114/74 Pulse Oximetry 97 Oxygen Flow Rate 03/06/22 04:00 03/06/22 06:44 03/06/22 07:00 Temperature 36.3 C L Pulse Rate 104 H 114 H Respiratory Rate 12 Blood Pressure 130/82 Pulse Oximetry Oxygen Flow Rate 1 03/06/22 07:00 03/06/22 07:30 03/06/22 08:00 Temperature Pulse Rate 108 H 119 H 115 H Respiratory Rate Blood Pressure 119/80 99/62 L 86/52 L Pulse Oximetry Oxygen Flow Rate 03/06/22 08:15 03/06/22 08:30 Temperature Pulse Rate 120 H 121 H Respiratory Rate Blood Pressure 79/63 L 104/64 Pulse Oximetry Oxygen Flow Rate Intake/Output Intake/Output: Intake & Output 03/03/22 03/04/22 03/05/22 03/06/22 23:59 23:59 23:59 23:59 Intake Total 840 650 615 310 Output Total 2009 0 0 Balance 815 -1360 615 310 Meds/Results Medications: Active Medications Generic Name Dose Route Start Last Admin Trade Name Freq PRN Reason Stop Dose Admin Albuterol 2 puff 02/19/22 09:42 Albuterol Sulfate (*Sp) Aerosol 1 Puff INHALATION Q6HRT PRN Shortness Of Breath Allopurinol 150 mg 02/20/22 09:00 03/05/22 09:43 Allopurinol 150 Mg Tablet BY MOUTH 150 mg DAILY LUIS MIGUEL Administration Amiodarone HCl 200 mg 03/01/22 17:00 03/05/22 17:41 Amiodarone Hcl 200 Mg Tablet PO 200 mg BID LUIS MIGUEL Administration Apixaban 2.5 mg 02/20/22 09:00 03/05/22 17:41 Apixaban 2.5 Mg Tablet PO 2.5 mg BID LUIS MIGUEL Administration Calcitriol 0.25 mcg 02/20/22 09:00 03/05/22 10:41 Calcitriol 0.25 Mcg Capsule PO Not Given DAILY LUIS MIGUEL Epoetin Julio-epbx 4,000 units 03/06/22 20:00 03/06/22 08:47 Epoetin Julio-Epbx 4,000 Units/Ml Vial SUB-Q 4,000 units [id number] LUIS MIGUEL Administration Guaifenesin 600 mg 02/19/22 10:20 03/05/22 20:46 Guaifenesin 12 Hr 600 Mg Tabcr PO 600 mg Q12HR LUIS MIGUEL Administration Cefepime HCl 0.5 gm/ Dextrose 50 mls @ 100 mls/hr 02/26/22 09:00 03/05/22 10:20 IVPB Infused Q24H LUIS MIGUEL Infusion Metronidazole 500 mg in 100 mls @ 100 mls/hr 03/01/22 18:00 03/06/22 06:12 Flagyl 500 Mg/Iso Soln 100 Ml IVPB Infused Q6HR LUIS MIGUEL Infusion Megestrol A
--- NOTE | 2022-03-06 11:30 | PCNFU ---
Nutrition Follow-Up Complete: Inadequate oral intake related to swallowing difficulty, loss of appetite, weakness as evidenced by poor intake and refusing meals. Goal:Meet estimated nutrition needs - Not meeting goal. Continue with same goal Pt current nutrition is Heart healthy diet. Aime BID for wound healing. Intakes 0-10% Nutrition recommendation: Continue with current diet and supplements. Pt refused Nepro so it was discontinued. Last recorded weight is 76.4 kg. - wt loss from 79.5 kg 02/26 related to dialysis Bowel Motility: + BM 03/05/22 Labs Reviewed: Alb 2.7, BUN 47, Cre 5.4. 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 He is now requiring full assist for meals. Intakes are poor. Started on appetite stimulant 03/05/22, will continue to monitor to see if this helps. Monitoring intakes, labs, swallowing ability, supplement tolerance, plan of care Follow up in 5 days
[2022-03-06] MEDS: CEFEPIME 0.5 GM in DEXTROSE 5% IN WATER 50 ML IVPB (11:32)
[2022-03-06] MEDS: METOPROLOL TARTRATE 50 MG TAB PO (11:38)
[2022-03-06] MEDS: VENLAFAXINE HCL 25 MG TABLET PO ×2 (11:39→18:17)
[2022-03-06] MEDS: VENLAFAXINE HCL 75 MG TABLET PO ×2 (11:39→18:16)
[2022-03-06] MEDS: APIXABAN 2.5 MG TABLET PO ×2 (11:39→18:16)
[2022-03-06] MEDS: AMIODARONE HCL 200 MG TABLET PO ×2 (11:39→18:15)
[2022-03-06] MEDS: allopurinoL 150 MG TABLET BY MOUTH (11:40)
[2022-03-06] MEDS: SACUBITRIL/VALSARTAN 24-26 MG TABLET 1 TAB PO ×2 (11:41→20:30)
[2022-03-06] MEDS: VITAMIN B CMPLX/VIT C/FOLIC AC 1 CAPSULE 1 CAP PO (11:41)
[2022-03-06] MEDS: guaiFENesin 12 HR 600 MG TABCR PO ×2 (11:41→20:30)
[2022-03-06] MEDS: CHOLECALCIFEROL 1,000 UNITS TABLET 2000 UNITS PO (11:41)
[2022-03-06] MEDS: calcitrioL 0.25 MCG CAPSULE PO (11:41)
--- NOTE | 2022-03-06 14:06 | PM.IMPN ---
Progress Note: A&P Assessment and Plan (1) Sepsis: Code(s): A41.9 - Sepsis, unspecified organism Status: Acute Assessment and Plan: Patient septic today evident by leukocytosis, tachypnea, tachycardia. WBC increased to 26.0 today. Etiology not clear at this time. Repeat blood cultures obtained, await results. Urine culture. MRSA nares screen. Procalcitonin elevated, however may be elevated given ESRD. Repeat CXR with increased left lower lobe atelectasis/consolidation and patchy bilateral pulmonary opacities. Concern for possible aspiration pneumonia. Begin vancomycin and cefepime. Repeat CBC in 12 hours to assess for improvement. 03/06/2021 interval history: Today patient remains quite somnolent his is present in the room, patient went to dialysis were not able to remove any fluids as patient was hypotensive, seen his nephrology recommending to consult Cardiology to help maintain blood pressure during dialysis, will consult zanjero and further recommendation to follow. (2) Acute respiratory failure with hypoxia: Code(s): J96.01 - Acute respiratory failure with hypoxia Status: Acute Assessment and Plan: Presented from nursing facility with sudden onset of shortness of breath and O2 sats 56% on room air. Suspect multifactorial in etiology secondary to hypervolemia from missed dialysis, CHF, COVID-19. CXR revealed diffuse lung disease consistent with pulmonary edema versus pneumonia. He was able to be weaned from BiPAP and is now maintaining adequate O2 sats on room air. Continue supplemental oxygen as needed with goal sats 92% or above. (3) Flash pulmonary edema: Code(s): J81.0 - Acute pulmonary edema Status: Acute Assessment and Plan: Likely secondary to missed dialysis. CXR reveals findings of pulmonary edema and small left pleural effusion. Nephrology consulted for dialysis management and patient had improvement in volume status and respiratory symptoms following hemodialysis. Continue to monitor volume status and continue with dialysis schedule (4) COVID-19: Code(s): U07.1 - COVID-19 Status: Acute Assessment and Plan: COVID positive on 02/17/2022. Patient received 2 doses of steroids at nursing facility. Completed 5 days of IV dexamethasone, discontinued on 02/24 fat as he had no ongoing oxygen requirement. Patient not a candidate for remdesivir given his renal failure. Supportive care provided including bronchodilators, expectorants, incentive spirometry, Cornet. Implement isolation precautions. Patient completed COVID vaccination and booster. Inflammatory markers remain elevated (5) Systolic CHF: Code(s): I50.20 - Unspecified systolic (congestive) heart failure Status: Acute Assessment and Plan: Likely contributing to acute respiratory failure. Last echocardiogram revealed left ventricular systolic function with moderately to severely reduced EF of 35-40%. BNP is >20500. volume status improved with hemodialysis. Continue to monitor volume status with accurate I&Os. repeat echocardiogram on 02/21 revealed EF of 30-35% with grade 2 diastolic dysfunction. Continue carvedilol. started on Entresto per Cardiology recommendations on 02/22. (6) Elevated troponin: Code(s): R77.8 - Other specified abnormalities of plasma proteins Status: Acute Assessment and Plan: Troponin elevated from baseline with peak 5.58. initial documentation states patient complained of chest pressure, however patient denies any episodes of chest pain to me. EKG reviewed. Appreciate cardiology consultation and recommendations. Concern for ACS given troponin rise. Echocardiogram revealed akinesis and hypokinesis of apical and septal wall. patient initially started on heparin drip and cardiac catheterization was considered, however decision was made to proceed with conservative management due to comorbidities and advanced
[2022-03-06] MEDS: SEVELAMER CARBONATE 800 MG TABLET PO (18:16)
[2022-03-06] MEDS: SILVERGEL (ELTA) 45 ML 1 APPLIC TOPICAL (18:16)
[2022-03-06] MEDS: METOPROLOL TARTRATE 50 MG TAB 100 MG PO (20:30)
[2022-03-07] VITALS (12 sets, daily range): BP systolic 116–137; BP diastolic 75–80; PULSE 106–119; RESP 16–21; TEMP 36.4–36.8; O2SAT 98–100
[2022-03-07] MEDS: metroNIDAZOLE 500 MG/ISO 100ML 500 MG/100 ML BAG 100 MG IVPB ×4 (05:52→23:31)
[2022-03-07] MEDS: MEGESTROL ACETATE (*CHEMO) ORAL SUSP 40 MG/ML SYR 400 MG PO (05:52)
[2022-03-07 05:59] LABS: Estimated CRCL calculation 13 ml/min; Estimated Glomerular Filt Rate 15
[2022-03-07] MEDS: SILVERGEL (ELTA) 45 ML 1 APPLIC TOPICAL (09:35)
[2022-03-07] MEDS: AMIODARONE HCL 200 MG TABLET PO (09:41)
[2022-03-07] MEDS: calcitrioL 0.25 MCG CAPSULE PO (09:41)
[2022-03-07] MEDS: VENLAFAXINE HCL 25 MG TABLET PO ×2 (09:41→16:24)
[2022-03-07] MEDS: METOPROLOL TARTRATE 50 MG TAB 100 MG PO ×2 (09:42→20:42)
[2022-03-07] MEDS: APIXABAN 2.5 MG TABLET PO ×2 (09:42→16:23)
[2022-03-07] MEDS: allopurinoL 150 MG TABLET BY MOUTH (09:42)
[2022-03-07] MEDS: SEVELAMER CARBONATE 800 MG TABLET PO ×2 (09:42→16:23)
[2022-03-07] MEDS: CHOLECALCIFEROL 1,000 UNITS TABLET 2000 UNITS PO (09:42)
[2022-03-07] MEDS: VENLAFAXINE HCL 75 MG TABLET PO ×2 (09:42→16:24)
[2022-03-07] MEDS: guaiFENesin 12 HR 600 MG TABCR PO ×2 (09:42→20:42)
[2022-03-07] MEDS: VITAMIN B CMPLX/VIT C/FOLIC AC 1 CAPSULE 1 CAP PO (09:42)
[2022-03-07] MEDS: CEFEPIME 0.5 GM in DEXTROSE 5% IN WATER 50 ML IVPB (09:58)
--- NOTE | 2022-03-07 10:21 | PCSTNOTE ---
Patient is being discharged from [facility] this date as he has refused to participate for the past week and his condition contributes to poor interest/ability to participate in active therapy exercises. Dr. Bravo aware and in agreement.
--- NOTE | 2022-03-07 14:17 | PM.IMPN ---
Progress Note: A&P Assessment and Plan (1) Sepsis: Code(s): A41.9 - Sepsis, unspecified organism Status: Acute Assessment and Plan: Patient septic today evident by leukocytosis, tachypnea, tachycardia. WBC increased to 26.0 today. Etiology not clear at this time. Repeat blood cultures obtained, await results. Urine culture. MRSA nares screen. Procalcitonin elevated, however may be elevated given ESRD. Repeat CXR with increased left lower lobe atelectasis/consolidation and patchy bilateral pulmonary opacities. Concern for possible aspiration pneumonia. Begin vancomycin and cefepime. Repeat CBC in 12 hours to assess for improvement. 03/07/2021 interval history: Today patient remains quite somnolent his daughter and son in law are present in the room, on 03/06 patient went to dialysis were not able to remove any fluids as patient was hypotensive, seen his nephrology recommending to consult Cardiology to help maintain blood pressure during dialysis, today patient was seen by infection prevention coordinator will his medications to help maintain his BP during dialysis, today discuss with patient son and daughter, would like to try couple dialysis treatments, if there is no improvement, may consider hospice or comfort care for the patient. (2) Acute respiratory failure with hypoxia: Code(s): J96.01 - Acute respiratory failure with hypoxia Status: Acute Assessment and Plan: Presented from nursing facility with sudden onset of shortness of breath and O2 sats 56% on room air. Suspect multifactorial in etiology secondary to hypervolemia from missed dialysis, CHF, COVID-19. CXR revealed diffuse lung disease consistent with pulmonary edema versus pneumonia. He was able to be weaned from BiPAP and is now maintaining adequate O2 sats on room air. Continue supplemental oxygen as needed with goal sats 92% or above. (3) Flash pulmonary edema: Code(s): J81.0 - Acute pulmonary edema Status: Acute Assessment and Plan: Likely secondary to missed dialysis. CXR reveals findings of pulmonary edema and small left pleural effusion. Nephrology consulted for dialysis management and patient had improvement in volume status and respiratory symptoms following hemodialysis. Continue to monitor volume status and continue with dialysis schedule (4) COVID-19: Code(s): U07.1 - COVID-19 Status: Acute Assessment and Plan: COVID positive on 02/17/2022. Patient received 2 doses of steroids at nursing facility. Completed 5 days of IV dexamethasone, discontinued on 02/24 fat as he had no ongoing oxygen requirement. Patient not a candidate for remdesivir given his renal failure. Supportive care provided including bronchodilators, expectorants, incentive spirometry, Cornet. Implement isolation precautions. Patient completed COVID vaccination and booster. Inflammatory markers remain elevated (5) Systolic CHF: Code(s): I50.20 - Unspecified systolic (congestive) heart failure Status: Acute Assessment and Plan: Likely contributing to acute respiratory failure. Last echocardiogram revealed left ventricular systolic function with moderately to severely reduced EF of 35-40%. BNP is >03894. volume status improved with hemodialysis. Continue to monitor volume status with accurate I&Os. repeat echocardiogram on 02/21 revealed EF of 30-35% with grade 2 diastolic dysfunction. Continue carvedilol. started on Entresto per Cardiology recommendations on 02/22. (6) Elevated troponin: Code(s): R77.8 - Other specified abnormalities of plasma proteins Status: Acute Assessment and Plan: Troponin elevated from baseline with peak 5.58. initial documentation states patient complained of chest pressure, however patient denies any episodes of chest pain to me. EKG reviewed. Appreciate cardiology consultation and recommendations. Concern for ACS given troponin rise. Echocardiogram revealed a
--- NOTE | 2022-03-07 14:26 | PM.PNCARD ---
Progress Note: A&P Assessment and Plan (1) ESRD (end stage renal disease) on dialysis: Code(s): N18.6 - End stage renal disease; Z99.2 - Dependence on renal dialysis Status: Acute (2) Systolic CHF: Code(s): I50.20 - Unspecified systolic (congestive) heart failure Status: Acute (3) Sepsis: Code(s): A41.9 - Sepsis, unspecified organism Status: Acute (4) Leukocytosis: Code(s): D72.829 - Elevated white blood cell count, unspecified Status: Acute (5) Transaminitis: Code(s): R74.01 - Elevation of levels of liver transaminase levels Status: Acute Plan I am going to stop his Entresto, and this should avoid any further hypotension. Continue with Metoprolol, Eliquis. Patient has been on Amiodarone 200mg BID for a while now, will decrease dose to 200mg QD. Subjective Date/time seen: 03/07/22 14:26 Interval history: Reason for visit: Hypotension. Cardiology asked to see patient again. Patient was not able to tolerate dialysis yesterday due to low blood pressure. Patient seen and examined at bedside, family at bedside. Patient somnolent today. Review of Systems Review of Systems: ROS unobtainable: Yes unobtainable due to mental status Exam Const: General: comfortable and no acute distress HENMT: Mouth: Yes moist mucous membranes Eyes: General: appearance normal, both eyes and all related structures Sclera: sclerae normal Neck: Neck: supple Resp: Effort & Inspection: normal respiratory effort Auscultation: clear to auscultation bilaterally Cardio: Rate: tachycardic Rhythm: regular rhythm Heart sounds: no murmurs Other: Patient has a grade 2/6 holosystolic murmur left sternal border and at the apex Skin: General skin exam: normal color Neuro: General: confusion Objective Data Vital Signs Vital Signs: Vital Signs - 24 hr 03/06/22 18:15 03/06/22 16:00 03/06/22 20:30 Temperature Pulse Rate 109 H 100 110 H Respiratory Rate Blood Pressure Pulse Oximetry Oxygen Delivery 03/06/22 21:59 03/06/22 20:00 03/07/22 00:00 Temperature 36.9 C Pulse Rate 121 H 111 H 119 H Respiratory Rate 20 Blood Pressure 100/72 Pulse Oximetry 98 Oxygen Delivery 03/07/22 04:00 03/07/22 06:00 03/07/22 09:41 Temperature 36.6 C Pulse Rate 116 H 119 H 115 H Respiratory Rate 21 H Blood Pressure 137/75 Pulse Oximetry 100 Oxygen Delivery 03/07/22 09:42 03/07/22 09:30 03/07/22 08:00 Temperature Pulse Rate 115 H 114 H Respiratory Rate Blood Pressure Pulse Oximetry Oxygen Delivery Room Air 03/07/22 12:03 Temperature Pulse Rate 112 H Respiratory Rate Blood Pressure Pulse Oximetry Oxygen Delivery Intake/Output Intake/Output: Intake & Output 03/04/22 03/05/22 03/06/22 03/07/22 23:59 23:59 23:59 23:59 Intake Total 650 615 680 300 Output Total 2009 0 333 100 Balance -1360 615 347 200 Meds/Results Medications: Active Medications Generic Name Dose Route Start Last Admin Trade Name Freq PRN Reason Stop Dose Admin Albuterol 2 puff 02/19/22 09:42 Albuterol Sulfate (*Sp) Aerosol 1 Puff INHALATION Q6HRT PRN Shortness Of Breath Allopurinol 150 mg 02/20/22 09:00 03/07/22 09:42 Allopurinol 150 Mg Tablet BY MOUTH 150 mg DAILY LUIS MIGUEL Administration Amiodarone HCl 200 mg 03/01/22 17:00 03/07/22 09:41 Amiodarone Hcl 200 Mg Tablet PO 200 mg BID LUIS MIGUEL Administration Apixaban 2.5 mg 02/20/22 09:00 03/07/22 09:42 Apixaban 2.5 Mg Tablet PO 2.5 mg BID LUIS MIGUEL Administration Calcitriol 0.25 mcg 02/20/22 09:00 03/07/22 09:41 Calcitriol 0.25 Mcg Capsule PO 0.25 mcg DAILY LUIS MIGUEL Administration Epoetin Julio-epbx 4,000 units 03/06/22 20:00 03/06/22 08:47 Epoetin Julio-Epbx 4,000 Units/Ml Vial SUB-Q 4,000 units [id number] [facility] Administration Guaifenesin 600 mg 02/19/22 10:20 03/07/22 09:42 Guaifenesin 12 Hr 600 Mg Tabcr PO
--- NOTE | 2022-03-07 14:53 | PM.PNNEP ---
Progress Note: A&P Assessment and Plan (1) ESRD (end stage renal disease) on dialysis: Code(s): N18.6 - End stage renal disease; Z99.2 - Dependence on renal dialysis Status: Acute Assessment and Plan: End-stage renal disease Hypertensive renal disease with renal failure Hyperkalemia Hyponatremia Fluid overload CHF as a result next item atrial fibrillation with rapid ventricular response anemia chronic kidney disease secondary hyperparathyroidism COVID-19 infection, pneumonia, sepsis plan: -dialysis tomorrow -off Entresto - we will see how he tolerates dialysis tomorrow -Discussed with patient, family at bedside Subjective Date/time seen: 03/07/22 14:53 ESRD follow-up looks a bit better today family at bedside Entresto has been discontinued by lace stripper Review of Systems Review of Systems: no shortness of breath Has some leg swelling Poor appetite Exam Narrative: elderly, comfortable with breathing in a supine position, no pallor, no icterus, most on Cozaar, JVD negative cardiac regular rhythm rate, equal breath sounds, no rub is anteriorly, soft nontender abdomen, edematous legs, alert oriented to situation, no tremors Objective Data Vital Signs Vital Signs: Vital Signs - 24 hr 03/06/22 18:15 03/06/22 16:00 03/06/22 20:30 Temperature Pulse Rate 109 H 100 110 H Respiratory Rate Blood Pressure Pulse Oximetry Oxygen Delivery 03/06/22 21:59 03/06/22 20:00 03/07/22 00:00 Temperature 36.9 C Pulse Rate 121 H 111 H 119 H Respiratory Rate 20 Blood Pressure 100/72 Pulse Oximetry 98 Oxygen Delivery 03/07/22 04:00 03/07/22 06:00 03/07/22 09:41 Temperature 36.6 C Pulse Rate 116 H 119 H 115 H Respiratory Rate 21 H Blood Pressure 137/75 Pulse Oximetry 100 Oxygen Delivery 03/07/22 09:42 03/07/22 09:30 03/07/22 08:00 Temperature Pulse Rate 115 H 114 H Respiratory Rate Blood Pressure Pulse Oximetry Oxygen Delivery Room Air 03/07/22 12:03 03/07/22 14:00 Temperature 36.8 C Pulse Rate 112 H 110 H Respiratory Rate 18 Blood Pressure 116/76 Pulse Oximetry 98 Oxygen Delivery Intake/Output Intake/Output: Intake & Output 01/02/03/05/22 03/06/22 03/07/22 23:59 23:59 23:59 23:59 Intake Total 650 615 680 410 Output Total 2009 0 333 100 Balance -1360 615 021 310 Meds/Results Medications: Active Medications Generic Name Dose Route Start Last Admin Trade Name Freq PRN Reason Stop Dose Admin Albuterol 2 puff 02/19/22 09:42 Albuterol Sulfate (*Sp) Aerosol 1 Puff INHALATION Q6HRT PRN Shortness Of Breath Allopurinol 150 mg 02/20/22 09:00 03/07/22 09:42 Allopurinol 150 Mg Tablet BY MOUTH 150 mg DAILY LUIS MIGUEL Administration Amiodarone HCl 200 mg 03/08/22 08:00 Amiodarone Hcl 200 Mg Tablet PO DAILY@0800 LUIS MIGUEL Apixaban 2.5 mg 02/20/22 09:00 03/07/22 09:42 Apixaban 2.5 Mg Tablet PO 2.5 mg BID LUIS MIGUEL Administration Calcitriol 0.25 mcg 02/20/22 09:00 03/07/22 09:41 Calcitriol 0.25 Mcg Capsule PO 0.25 mcg DAILY LUIS MIGUEL Administration Epoetin Julio-epbx 4,000 units 03/06/22 20:00 03/06/22 08:47 Epoetin Julio-Epbx 4,000 Units/Ml Vial SUB-Q 4,000 units [id number] LUIS MIGUEL Administration Guaifenesin 600 mg 02/19/22 10:20 03/07/22 09:42 Guaifenesin 12 Hr 600 Mg Tabcr PO 600 mg Q12HR LUIS MIGUEL Administration Cefepime HCl 0.5 gm/ Dextrose 50 mls @ 100 mls/hr 02/26/22 09:00 03/07/22 10:28 IVPB Infused Q24H LUIS MIGUEL Infusion Metronidazole 500 mg in 100 mls @ 100 mls/hr 03/01/22 18:00 03/07/22 13:52 Flagyl 500 Mg/Iso Soln 100 Ml IVPB Infused Q6HR LUIS MIGUEL Infusion Sodium Chloride 1,000 mls @ 999 mls/hr 03/07/22 14:50 Normal Saline Iv IV CONT 03/07/22 15:50 .Q1H1M ONE Sodium Chloride 1,000 mls @ 0 mls/hr 03/07/22 14:50 Normal Saline Iv IV CONT 03/07/22 14:51 .Q0M ONE Per Protocol Megestrol Acetat
--- NOTE | 2022-03-07 15:48 | PCPTNOTE ---
Attempted PT re-evaluation, pt refused. Pt did not give a reason for refusal. Therapist spent time speaking to family about pt refusing therapy the past 2 weeks. Will follow.
--- NOTE | 2022-03-07 16:24 | PCOTNOTE ---
Attempted OT re-evaluation, pt refused. Pt did not give a reason for refusal. Therapist spent time speaking to family about pt refusing therapy the past 2 weeks. Will follow.
[2022-03-08] VITALS (26 sets, daily range): BP systolic 102–145; BP diastolic 53–91; PULSE 80–128; RESP 14–16; TEMP 36–36.5; O2SAT 91–100
[2022-03-08] MEDS: metroNIDAZOLE 500 MG/ISO 100ML 500 MG/100 ML BAG 100 MG IVPB ×4 (05:12→23:50)
[2022-03-08 05:46] LABS: Hematocrit 38.5 % (42.0-52.0); Hemoglobin 11.5 g/dL (14.0-18.0); Mean Corpuscular HGB Conc 29.9 g/dl (32-36); Mean Corpuscular Hemoglobin 32.3 pg (26-34); Mean Corpuscular Volume 108.1 fl (80-100); Mean Platelet Volume 10.6 fl (7.4-10.4); Platelet Count Result 122 k/mm3 (150-375); Red Blood Count 3.56 M/mm3 (4.6-6.20); Red Cell Distribution Width 23.2 % (11.5-14.5); White Blood Count 8.2 K/mm3 (4.5-10.0)
[2022-03-08] MEDS: MEGESTROL ACETATE (*CHEMO) ORAL SUSP 40 MG/ML SYR 400 MG PO (06:09)
[2022-03-08 06:10] LABS: Anion Gap 10 mmol/L (8-16); Blood Urea Nitrogen 45 mg/dL (9-20); Calcium 7.7 mg/dL (8.4-10.2); Carbon Dioxide 29 mmol/L (22-30); Chloride 93 mmol/L (98-107); Estimated CRCL calculation 12 ml/min; Estimated Glomerular Filt Rate 12; Glucose 66 mg/dL (65-110); Potassium 3.6 mmol/L (3.4-5.0); Sodium 132 mmol/L (137-145)
[2022-03-08] MEDS: VENLAFAXINE HCL 25 MG TABLET PO ×2 (09:36→18:39)
[2022-03-08] MEDS: APIXABAN 2.5 MG TABLET PO ×2 (09:36→18:39)
[2022-03-08] MEDS: VENLAFAXINE HCL 75 MG TABLET PO ×2 (09:36→18:39)
[2022-03-08] MEDS: SEVELAMER CARBONATE 800 MG TABLET PO ×2 (09:36→18:39)
[2022-03-08] MEDS: SILVERGEL (ELTA) 45 ML 1 APPLIC TOPICAL (09:44)
--- NOTE | 2022-03-08 11:39 | PM.PNNEP ---
Progress Note: A&P Assessment and Plan (1) ESRD (end stage renal disease) on dialysis: Code(s): N18.6 - End stage renal disease; Z99.2 - Dependence on renal dialysis Status: Acute Assessment and Plan: End-stage renal disease Hypertensive renal disease with renal failure Hyperkalemia Hyponatremia Fluid overload CHF as a result next item atrial fibrillation with rapid ventricular response anemia chronic kidney disease secondary hyperparathyroidism COVID-19 infection, pneumonia, sepsis Plan Plan: -in dialysis today : Dialysis supervised 03/08/2022, so far tolerating. - Entresto was stopped yesterday - blood pressure is still low -we will see how much fluid removal he tolerates today Subjective Date/time seen: 03/08/22 11:39 Seen and examined earlier today and again on hemodialysis currently at 2:34 p.m.. Procedure note: -Blood flow of 390 mL/min, dialysate flow of 500 mL/min, trying ultrafiltration of 2 L rest as per orders. Review of Systems Review of Systems: Patient's family at bedside when seen earlier, now seen on hemodialysis. More awake and alert and has been. He is edematous, exhibiting negative, irregular rhythm rate, lungs clear, soft abdomen, alert awake Objective Data Vital Signs Vital Signs: Vital Signs - 24 hr 03/07/22 12:03 03/07/22 14:00 03/07/22 16:00 Temperature 36.8 C Pulse Rate 112 H 110 H 107 H Respiratory Rate 18 Blood Pressure 116/76 Pulse Oximetry 98 Oxygen Delivery 03/07/22 20:42 03/07/22 20:00 03/07/22 22:57 Temperature 36.4 C Pulse Rate 106 H 112 H 107 H Respiratory Rate 16 Blood Pressure 124/80 Pulse Oximetry 99 Oxygen Delivery 03/08/22 00:00 03/08/22 04:00 03/08/22 04:31 Temperature 36.5 C Pulse Rate 115 H 114 H 100 Respiratory Rate 14 Blood Pressure 116/76 Pulse Oximetry 97 Oxygen Delivery 03/08/22 09:38 Temperature Pulse Rate Respiratory Rate Blood Pressure Pulse Oximetry Oxygen Delivery Room Air Intake/Output Intake/Output: Intake & Output 03/05/22 03/06/22 03/07/22 03/08/22 23:59 23:59 23:59 23:59 Intake Total 233 045 7240 380 Output Total 0 333 100 25 Balance 016 133 7285 355 Meds/Results Medications: Active Medications Generic Name Dose Route Start Last Admin Trade Name Freq PRN Reason Stop Dose Admin Albuterol 2 puff 02/19/22 09:42 Albuterol Sulfate (*Sp) Aerosol 1 Puff INHALATION Q6HRT PRN Shortness Of Breath Allopurinol 150 mg 02/20/22 09:00 03/07/22 09:42 Allopurinol 150 Mg Tablet BY MOUTH 150 mg DAILY [facility] Administration Amiodarone HCl 200 mg 03/08/22 08:00 Amiodarone Hcl 200 Mg Tablet PO DAILY@0800 [facility] Apixaban 2.5 mg 02/20/22 09:00 03/08/22 09:36 Apixaban 2.5 Mg Tablet PO 2.5 mg BID [facility] Administration Artificial Tears 1 drop 03/07/22 16:40 Artificial Tears Ophth Soln 15 Ml Bottle EACH EYE QID PRN Dry Eye(s) Calcitriol 0.25 mcg 02/20/22 09:00 03/07/22 09:41 Calcitriol 0.25 Mcg Capsule PO 0.25 mcg DAILY [facility] Administration Epoetin Julio-epbx 4,000 units 03/06/22 20:00 03/06/22 08:47 Epoetin Julio-Epbx 4,000 Units/Ml Vial SUB-Q 4,000 units [id number] [facility] Administration Guaifenesin 600 mg 02/19/22 10:20 03/07/22 20:42 Guaifenesin 12 Hr 600 Mg Tabcr PO 600 mg Q12HR [facility] Administration Metronidazole 500 mg in 100 mls @ 100 mls/hr 03/01/22 18:00 03/08/22 05:12 Flagyl 500 Mg/Iso Soln 100 Ml IVPB 100 mls/hr Q6HR [facility] Administration Cefepime HCl 0.5 gm/ Dextrose 50 mls @ 100 mls/hr 03/08/22 09:00 IVPB Q24H [facility] Megestrol Acetate 400 mg 03/05/22 14:00 03/08/22 06:09 Megestrol Acetate (*Chemo) Oral Susp 40 Mg/Ml Syr PO 400 mg DAILY@0630 [facility] Administration Metoprolol Tartrate 5 mg 02/27/22 14:55 03/02/22 02:40 Metoprolol Tartrate Inj 5 Mg/5 Ml Vial IV PUSH 5 mg Q4HR PRN Administration Tachycardia Metoprolol Tartrate
--- NOTE | 2022-03-08 14:32 | PM.PNNEP ---
Subjective Date/time seen: 03/08/22 14:32 Objective Data Vital Signs Vital Signs: Vital Signs - 24 hr 03/07/22 16:00 03/07/22 20:42 03/07/22 20:00 Temperature Pulse Rate 107 H 106 H 112 H Respiratory Rate Blood Pressure Pulse Oximetry Oxygen Delivery 03/07/22 22:57 03/08/22 00:00 03/08/22 04:00 Temperature 36.4 C Pulse Rate 107 H 115 H 114 H Respiratory Rate 16 Blood Pressure 124/80 Pulse Oximetry 99 Oxygen Delivery 03/08/22 04:31 03/08/22 09:38 03/08/22 08:00 Temperature 36.5 C Pulse Rate 100 117 H Respiratory Rate 14 Blood Pressure 116/76 Pulse Oximetry 97 Oxygen Delivery Room Air 03/08/22 12:04 03/08/22 14:00 Temperature 36.5 C Pulse Rate 116 H 101 H Respiratory Rate 14 Blood Pressure 112/73 Pulse Oximetry 100 Oxygen Delivery Intake/Output Intake/Output: Intake & Output 03/05/22 03/06/22 03/07/22 03/08/22 23:59 23:59 23:59 23:59 Intake Total 767 458 8999 480 Output Total 0 333 100 25 Balance 930 610 2812 455 Meds/Results Medications: Active Medications Generic Name Dose Route Start Last Admin Trade Name Freq PRN Reason Stop Dose Admin Albuterol 2 puff 02/19/22 09:42 Albuterol Sulfate (*Sp) Aerosol 1 Puff INHALATION Q6HRT PRN Shortness Of Breath Allopurinol 150 mg 02/20/22 09:00 03/07/22 09:42 Allopurinol 150 Mg Tablet BY MOUTH 150 mg DAILY [facility] Administration Amiodarone HCl 200 mg 03/08/22 08:00 Amiodarone Hcl 200 Mg Tablet PO DAILY@0800 [facility] Apixaban 2.5 mg 02/20/22 09:00 03/08/22 09:36 Apixaban 2.5 Mg Tablet PO 2.5 mg BID [facility] Administration Artificial Tears 1 drop 03/07/22 16:40 Artificial Tears Ophth Soln 15 Ml Bottle EACH EYE QID PRN Dry Eye(s) Calcitriol 0.25 mcg 02/20/22 09:00 03/07/22 09:41 Calcitriol 0.25 Mcg Capsule PO 0.25 mcg DAILY [facility] Administration Epoetin Julio-epbx 4,000 units 03/06/22 20:00 03/06/22 08:47 Epoetin Julio-Epbx 4,000 Units/Ml Vial SUB-Q 4,000 units [id number] [facility] Administration Guaifenesin 600 mg 02/19/22 10:20 03/07/22 20:42 Guaifenesin 12 Hr 600 Mg Tabcr PO 600 mg Q12HR [facility] Administration Metronidazole 500 mg in 100 mls @ 100 mls/hr 03/01/22 18:00 03/08/22 12:20 Flagyl 500 Mg/Iso Soln 100 Ml IVPB 100 mls/hr Q6HR [facility] Administration Cefepime HCl 0.5 gm/ Dextrose 50 mls @ 100 mls/hr 03/08/22 09:00 IVPB Q24H [facility] Megestrol Acetate 400 mg 03/05/22 14:00 03/08/22 06:09 Megestrol Acetate (*Chemo) Oral Susp 40 Mg/Ml Syr PO 400 mg DAILY@0630 [facility] Administration Metoprolol Tartrate 5 mg 02/27/22 14:55 03/02/22 02:40 Metoprolol Tartrate Inj 5 Mg/5 Ml Vial IV PUSH 5 mg Q4HR PRN Administration Tachycardia Metoprolol Tartrate 100 mg 03/05/22 09:00 03/07/22 20:42 Metoprolol Tartrate 50 Mg Tab PO 100 mg Q12HR [facility] Administration Ondansetron HCl 4 mg 02/19/22 06:05 Ondansetron Inj 4 Mg/2 Ml Vial IV PUSH Q4H PRN Nausea Sevelamer Carbonate 800 mg 02/19/22 17:45 03/08/22 09:36 Sevelamer Carbonate 800 Mg Tablet PO 800 mg BID [facility] Administration Silver Nitrate 1 applic 02/26/22 09:00 03/08/22 09:44 Silvergel (Elta) 45 Ml TOPICAL 1 applic DAILY [facility] Administration Venlafaxine HCl 25 mg 03/05/22 17:00 03/08/22 09:36 Venlafaxine Hcl 25 Mg Tablet PO 25 mg BID [facility] Administration Venlafaxine HCl 75 mg 03/05/22 17:00 03/08/22 09:36 Venlafaxine Hcl 75 Mg Tablet PO 75 mg BID [facility] Administration Vitamin B Complex/Folic Acid 1 cap 02/20/22 09:00 03/07/22 09:42 Vitamin B Cmplx/Vit C/Folic Ac 1 Capsule PO 1 cap DAILY [facility] Administration Vitamin D 2,000 units 02/20/22 09:00 03/07/22 09:42 Cholecalciferol 1,000 Units Tablet PO 2,000 units DAILY [facility] Administration Radiology Results: ITS Impressions Abdomen Ultrasound 02/23/22 10:10 IMPRESSION: 1. Borderline increased portal veno
--- NOTE | 2022-03-08 16:31 | PM.IMPN ---
Progress Note: A&P Assessment and Plan (1) Sepsis: Code(s): A41.9 - Sepsis, unspecified organism Status: Acute Assessment and Plan: Patient septic today evident by leukocytosis, tachypnea, tachycardia. WBC increased to 26.0 today. Etiology not clear at this time. Repeat blood cultures obtained, await results. Urine culture. MRSA nares screen. Procalcitonin elevated, however may be elevated given ESRD. Repeat CXR with increased left lower lobe atelectasis/consolidation and patchy bilateral pulmonary opacities. Concern for possible aspiration pneumonia. Begin vancomycin and cefepime. Repeat CBC in 12 hours to assess for improvement. 03/08/2021 interval history: on 03/07 patient was quite somnolent his daughter and son in law were present in the room, on 03/06 patient went to dialysis were not able to remove any fluids as patient was hypotensive, seen his nephrology recommending to consult Cardiology to help maintain blood pressure during dialysis, on 03/07 patient was seen by master steam yacht and entersto was stopped to increase his BP, also on 03/07 discussed with patient son and daughter, would like to try couple dialysis treatments, if there is no improvement, may consider hospice or comfort care for the patient. today patient BP is still soft, patient will have dialysis will monitor and further recommendation to follow. (2) Acute respiratory failure with hypoxia: Code(s): J96.01 - Acute respiratory failure with hypoxia Status: Acute Assessment and Plan: Presented from nursing facility with sudden onset of shortness of breath and O2 sats 56% on room air. Suspect multifactorial in etiology secondary to hypervolemia from missed dialysis, CHF, COVID-19. CXR revealed diffuse lung disease consistent with pulmonary edema versus pneumonia. He was able to be weaned from BiPAP and is now maintaining adequate O2 sats on room air. Continue supplemental oxygen as needed with goal sats 92% or above. (3) Flash pulmonary edema: Code(s): J81.0 - Acute pulmonary edema Status: Acute Assessment and Plan: Likely secondary to missed dialysis. CXR reveals findings of pulmonary edema and small left pleural effusion. Nephrology consulted for dialysis management and patient had improvement in volume status and respiratory symptoms following hemodialysis. Continue to monitor volume status and continue with dialysis schedule (4) COVID-19: Code(s): U07.1 - COVID-19 Status: Acute Assessment and Plan: COVID positive on 02/17/2022. Patient received 2 doses of steroids at nursing facility. Completed 5 days of IV dexamethasone, discontinued on 02/24 fat as he had no ongoing oxygen requirement. Patient not a candidate for remdesivir given his renal failure. Supportive care provided including bronchodilators, expectorants, incentive spirometry, Cornet. Implement isolation precautions. Patient completed COVID vaccination and booster. Inflammatory markers remain elevated (5) Systolic CHF: Code(s): I50.20 - Unspecified systolic (congestive) heart failure Status: Acute Assessment and Plan: Likely contributing to acute respiratory failure. Last echocardiogram revealed left ventricular systolic function with moderately to severely reduced EF of 35-40%. BNP is >19310. volume status improved with hemodialysis. Continue to monitor volume status with accurate I&Os. repeat echocardiogram on 02/21 revealed EF of 30-35% with grade 2 diastolic dysfunction. Continue carvedilol. started on Entresto per Cardiology recommendations on 02/22. (6) Elevated troponin: Code(s): R77.8 - Other specified abnormalities of plasma proteins Status: Acute Assessment and Plan: Troponin elevated from baseline with peak 5.58. initial documentation states patient complained of chest pressure, however patient denies any episodes of chest pain to me. EKG reviewed. Appreciate card
--- NOTE | 2022-03-08 17:32 | PCOTNOTE ---
D/C pt from therapy at this time due to limited progress and participation in therapy services. Hospitalist, Dr. Bravo in agreement. Re-order if pt. displays improvement in condition and willingness to participate in therapy services.
[2022-03-08] MEDS: CEFEPIME 0.5 GM in DEXTROSE 5% IN WATER 50 ML IVPB (18:34)
[2022-03-08] MEDS: CHOLECALCIFEROL 1,000 UNITS TABLET 2000 UNITS PO (18:36)
[2022-03-08] MEDS: guaiFENesin 12 HR 600 MG TABCR PO ×2 (18:36→20:12)
[2022-03-08] MEDS: VITAMIN B CMPLX/VIT C/FOLIC AC 1 CAPSULE 1 CAP PO (18:36)
[2022-03-08] MEDS: AMIODARONE HCL 200 MG TABLET PO (18:36)
[2022-03-08] MEDS: allopurinoL 150 MG TABLET BY MOUTH (18:37)
[2022-03-08] MEDS: calcitrioL 0.25 MCG CAPSULE PO (18:37)
[2022-03-08] MEDS: ARTIFICIAL TEARS OPHTH SOLN 15 ML BOTTLE 1 DROP EACH EYE (18:49)
[2022-03-08] MEDS: METOPROLOL TARTRATE 50 MG TAB 100 MG PO (18:51)
[2022-03-08] MEDS: EPOETIN ALFA-EPBX 4,000 UNITS/ML VIAL 4000 UNITS SUB-Q (20:12)
[2022-03-09] VITALS (12 sets, daily range): BP systolic 100–111; BP diastolic 77–80; PULSE 98–119; RESP 16–18; TEMP 36.1–36.8; O2SAT 97–98
[2022-03-09] MEDS: metroNIDAZOLE 500 MG/ISO 100ML 500 MG/100 ML BAG 100 MG IVPB ×3 (05:37→17:04)
[2022-03-09] MEDS: MEGESTROL ACETATE (*CHEMO) ORAL SUSP 40 MG/ML SYR 400 MG PO (05:38)
[2022-03-09] MEDS: CEFEPIME 0.5 GM in DEXTROSE 5% IN WATER 50 ML IVPB (08:21)
[2022-03-09] MEDS: VITAMIN B CMPLX/VIT C/FOLIC AC 1 CAPSULE 1 CAP PO (08:32)
[2022-03-09] MEDS: VENLAFAXINE HCL 25 MG TABLET PO ×2 (08:32→16:55)
[2022-03-09] MEDS: guaiFENesin 12 HR 600 MG TABCR PO ×2 (08:32→20:34)
[2022-03-09] MEDS: METOPROLOL TARTRATE 50 MG TAB 100 MG PO ×2 (08:32→20:34)
[2022-03-09] MEDS: calcitrioL 0.25 MCG CAPSULE PO (08:33)
[2022-03-09] MEDS: CHOLECALCIFEROL 1,000 UNITS TABLET 2000 UNITS PO (08:33)
[2022-03-09] MEDS: allopurinoL 150 MG TABLET BY MOUTH (08:33)
[2022-03-09] MEDS: SEVELAMER CARBONATE 800 MG TABLET PO ×2 (08:33→16:55)
[2022-03-09] MEDS: AMIODARONE HCL 200 MG TABLET PO (08:33)
[2022-03-09] MEDS: APIXABAN 2.5 MG TABLET PO ×2 (08:34→16:55)
[2022-03-09] MEDS: VENLAFAXINE HCL 75 MG TABLET PO ×2 (08:34→16:55)
[2022-03-09] MEDS: SILVERGEL (ELTA) 45 ML 1 APPLIC TOPICAL (08:35)
[2022-03-09 09:23] LABS: Hematocrit 37.3 % (42.0-52.0); Hemoglobin 11.5 g/dL (14.0-18.0); Mean Corpuscular HGB Conc 30.8 g/dl (32-36); Mean Corpuscular Hemoglobin 32.2 pg (26-34); Mean Corpuscular Volume 104.5 fl (80-100); Mean Platelet Volume 10.6 fl (7.4-10.4); Platelet Count Result 112 k/mm3 (150-375); Red Blood Count 3.57 M/mm3 (4.6-6.20); White Blood Count 7.9 K/mm3 (4.5-10.0)
[2022-03-09 09:35] LABS: Albumin Level 2.7 g/dL (3.5-5.1); Anion Gap 9 mmol/L (8-16); Blood Urea Nitrogen 27 mg/dL (9-20); Calcium 7.5 mg/dL (8.4-10.2); Carbon Dioxide 29 mmol/L (22-30); Chloride 97 mmol/L (98-107); Estimated CRCL calculation 15 ml/min; Estimated Glomerular Filt Rate 17; Glucose 80 mg/dL (65-110); Magnesium 2.1 mg/dL (1.6-2.3); Phosphorus 3.3 mg/dL (2.5-4.5); Potassium 3.3 mmol/L (3.4-5.0); Sodium 135 mmol/L (137-145)
--- NOTE | 2022-03-09 10:38 | PM.IMPN ---
Progress Note: A&P Assessment and Plan (1) Sepsis: Code(s): A41.9 - Sepsis, unspecified organism Status: Acute Assessment and Plan: Patient septic today evident by leukocytosis, tachypnea, tachycardia. WBC increased to 26.0 today. Etiology not clear at this time. Repeat blood cultures obtained, await results. Urine culture. MRSA nares screen. Procalcitonin elevated, however may be elevated given ESRD. Repeat CXR with increased left lower lobe atelectasis/consolidation and patchy bilateral pulmonary opacities. Concern for possible aspiration pneumonia. Begin vancomycin and cefepime. Repeat CBC in 12 hours to assess for improvement. 03/09/2021 interval history: on 03/07 patient was quite somnolent his daughter and son in law were present in the room, on 03/06 patient went to dialysis were not able to remove any fluids as patient was hypotensive, seen his nephrology recommending to consult Cardiology to help maintain blood pressure during dialysis, on 03/07 patient was seen by plumbing designer and entersto was stopped to increase his BP, also on 03/07 discussed with patient son and daughter, would like to try couple dialysis treatments, if there is no improvement, may consider hospice or comfort care for the patient. on 03/08 patient BP was still soft, patient had dialysis and was able to remove 1.5L today patient remains clinically stable, his BP is still soft, patient will have dialysis on Friday will monitor and further recommendation to follow. today patient grand son is present in the room. (2) Acute respiratory failure with hypoxia: Code(s): J96.01 - Acute respiratory failure with hypoxia Status: Acute Assessment and Plan: Presented from nursing facility with sudden onset of shortness of breath and O2 sats 56% on room air. Suspect multifactorial in etiology secondary to hypervolemia from missed dialysis, CHF, COVID-19. CXR revealed diffuse lung disease consistent with pulmonary edema versus pneumonia. He was able to be weaned from BiPAP and is now maintaining adequate O2 sats on room air. Continue supplemental oxygen as needed with goal sats 92% or above. (3) Flash pulmonary edema: Code(s): J81.0 - Acute pulmonary edema Status: Acute Assessment and Plan: Likely secondary to missed dialysis. CXR reveals findings of pulmonary edema and small left pleural effusion. Nephrology consulted for dialysis management and patient had improvement in volume status and respiratory symptoms following hemodialysis. Continue to monitor volume status and continue with dialysis schedule (4) COVID-19: Code(s): U07.1 - COVID-19 Status: Acute Assessment and Plan: COVID positive on 02/17/2022. Patient received 2 doses of steroids at nursing facility. Completed 5 days of IV dexamethasone, discontinued on 02/24 fat as he had no ongoing oxygen requirement. Patient not a candidate for remdesivir given his renal failure. Supportive care provided including bronchodilators, expectorants, incentive spirometry, Cornet. Implement isolation precautions. Patient completed COVID vaccination and booster. Inflammatory markers remain elevated (5) Systolic CHF: Code(s): I50.20 - Unspecified systolic (congestive) heart failure Status: Acute Assessment and Plan: Likely contributing to acute respiratory failure. Last echocardiogram revealed left ventricular systolic function with moderately to severely reduced EF of 35-40%. BNP is >06713. volume status improved with hemodialysis. Continue to monitor volume status with accurate I&Os. repeat echocardiogram on 02/21 revealed EF of 30-35% with grade 2 diastolic dysfunction. Continue carvedilol. started on Entresto per Cardiology recommendations on 02/22. (6) Elevated troponin: Code(s): R77.8 - Other specified abnormalities of plasma proteins Status: Acute Assessment and Plan: Troponin elevated from b
[2022-03-10] VITALS (10 sets, daily range): BP systolic 108–136; BP diastolic 57–89; PULSE 67–125; RESP 14–18; TEMP 36.2–36.8; O2SAT 92–100
[2022-03-10] MEDS: metroNIDAZOLE 500 MG/ISO 100ML 500 MG/100 ML BAG 100 MG IVPB ×4 (00:17→17:51)
[2022-03-10] MEDS: MEGESTROL ACETATE (*CHEMO) ORAL SUSP 40 MG/ML SYR 400 MG PO (05:14)
[2022-03-10] MEDS: allopurinoL 150 MG TABLET BY MOUTH (08:30)
[2022-03-10] MEDS: VENLAFAXINE HCL 25 MG TABLET PO ×2 (08:30→17:50)
[2022-03-10] MEDS: METOPROLOL TARTRATE 50 MG TAB 100 MG PO ×2 (08:31→21:47)
[2022-03-10] MEDS: APIXABAN 2.5 MG TABLET PO ×2 (08:31→17:50)
[2022-03-10] MEDS: AMIODARONE HCL 200 MG TABLET PO (08:31)
[2022-03-10] MEDS: guaiFENesin 12 HR 600 MG TABCR PO ×2 (08:31→21:47)
[2022-03-10] MEDS: VITAMIN B CMPLX/VIT C/FOLIC AC 1 CAPSULE 1 CAP PO (08:31)
[2022-03-10] MEDS: SEVELAMER CARBONATE 800 MG TABLET PO ×2 (08:31→17:50)
[2022-03-10] MEDS: VENLAFAXINE HCL 75 MG TABLET PO ×2 (08:31→17:50)
[2022-03-10] MEDS: calcitrioL 0.25 MCG CAPSULE PO (08:32)
[2022-03-10] MEDS: CHOLECALCIFEROL 1,000 UNITS TABLET 2000 UNITS PO (08:32)
[2022-03-10] MEDS: CEFEPIME 0.5 GM in DEXTROSE 5% IN WATER 50 ML IVPB (08:49)
[2022-03-10] MEDS: SILVERGEL (ELTA) 45 ML 1 APPLIC TOPICAL (08:55)
--- NOTE | 2022-03-10 11:22 | PM.IMPN ---
Progress Note: A&P Assessment and Plan (1) Sepsis: Code(s): A41.9 - Sepsis, unspecified organism Status: Acute Assessment and Plan: Patient septic today evident by leukocytosis, tachypnea, tachycardia. WBC increased to 26.0 today. Etiology not clear at this time. Repeat blood cultures obtained, await results. Urine culture. MRSA nares screen. Procalcitonin elevated, however may be elevated given ESRD. Repeat CXR with increased left lower lobe atelectasis/consolidation and patchy bilateral pulmonary opacities. Concern for possible aspiration pneumonia. Begin vancomycin and cefepime. Repeat CBC in 12 hours to assess for improvement. 03/10/2021 interval history: on 03/07 patient was quite somnolent his daughter and son in law were present in the room, on 03/06 patient went to dialysis were not able to remove any fluids as patient was hypotensive, seen his nephrology recommending to consult Cardiology to help maintain blood pressure during dialysis, on 03/07 patient was seen by heating and ventilating worker and entersto was stopped to increase his BP, also on 03/07 discussed with patient son and daughter, would like to try couple dialysis treatments, if there is no improvement, may consider hospice or comfort care for the patient. on 03/08 patient BP was still soft, patient had dialysis and was able to remove 1.5L today patient remains clinically stable, his BP and HR are rising patient will have dialysis on Friday will monitor and further recommendation to follow. today patient's family is not present in the room. (2) Acute respiratory failure with hypoxia: Code(s): J96.01 - Acute respiratory failure with hypoxia Status: Acute Assessment and Plan: Presented from nursing facility with sudden onset of shortness of breath and O2 sats 56% on room air. Suspect multifactorial in etiology secondary to hypervolemia from missed dialysis, CHF, COVID-19. CXR revealed diffuse lung disease consistent with pulmonary edema versus pneumonia. He was able to be weaned from BiPAP and is now maintaining adequate O2 sats on room air. Continue supplemental oxygen as needed with goal sats 92% or above. (3) Flash pulmonary edema: Code(s): J81.0 - Acute pulmonary edema Status: Acute Assessment and Plan: Likely secondary to missed dialysis. CXR reveals findings of pulmonary edema and small left pleural effusion. Nephrology consulted for dialysis management and patient had improvement in volume status and respiratory symptoms following hemodialysis. Continue to monitor volume status and continue with dialysis schedule (4) COVID-19: Code(s): U07.1 - COVID-19 Status: Acute Assessment and Plan: COVID positive on 02/17/2022. Patient received 2 doses of steroids at nursing facility. Completed 5 days of IV dexamethasone, discontinued on 02/24 fat as he had no ongoing oxygen requirement. Patient not a candidate for remdesivir given his renal failure. Supportive care provided including bronchodilators, expectorants, incentive spirometry, Cornet. Implement isolation precautions. Patient completed COVID vaccination and booster. Inflammatory markers remain elevated (5) Systolic CHF: Code(s): I50.20 - Unspecified systolic (congestive) heart failure Status: Acute Assessment and Plan: Likely contributing to acute respiratory failure. Last echocardiogram revealed left ventricular systolic function with moderately to severely reduced EF of 35-40%. BNP is >71274. volume status improved with hemodialysis. Continue to monitor volume status with accurate I&Os. repeat echocardiogram on 02/21 revealed EF of 30-35% with grade 2 diastolic dysfunction. Continue carvedilol. started on Entresto per Cardiology recommendations on 02/22. (6) Elevated troponin: Code(s): R77.8 - Other specified abnormalities of plasma proteins Status: Acute Assessment and Plan: Troponin elevated
[2022-03-10] MEDS: NYSTATIN 100,000 UNITS/ML SUSP 5 ML ORAL.SUSP PO ×2 (17:51→21:47)
[2022-03-11] VITALS (8 sets, daily range): BP systolic 119–131; BP diastolic 75–84; PULSE 105–120; RESP 12–18; TEMP 36.4–37.1; O2SAT 93–99
[2022-03-11] MEDS: metroNIDAZOLE 500 MG/ISO 100ML 500 MG/100 ML BAG 100 MG IVPB ×2 (00:59→06:12)
[2022-03-11 05:51] LABS: Hemoglobin 11.8 g/dL (14.0-18.0); Mean Corpuscular HGB Conc 30.3 g/dl (32-36); Mean Corpuscular Hemoglobin 32.7 pg (26-34); Mean Platelet Volume 10.6 fl (7.4-10.4); Platelet Count Result 96 k/mm3 (150-375); Red Blood Count 3.61 M/mm3 (4.6-6.20); Red Cell Distribution Width 22.4 % (11.5-14.5); White Blood Count 6.9 K/mm3 (4.5-10.0)
[2022-03-11 05:58] LABS: Albumin Level 2.8 g/dL (3.5-5.1); Anion Gap 10 mmol/L (8-16); Blood Urea Nitrogen 43 mg/dL (9-20); Calcium 7.9 mg/dL (8.4-10.2); Carbon Dioxide 32 mmol/L (22-30); Chloride 93 mmol/L (98-107); Estimated CRCL calculation 11 ml/min; Estimated Glomerular Filt Rate 11; Glucose 84 mg/dL (65-110); Magnesium 2.3 mg/dL (1.6-2.3); Phosphorus 4.7 mg/dL (2.5-4.5); Potassium 3.6 mmol/L (3.4-5.0); Sodium 135 mmol/L (137-145)
[2022-03-11] MEDS: MEGESTROL ACETATE (*CHEMO) ORAL SUSP 40 MG/ML SYR 400 MG PO (06:15)
[2022-03-11] MEDS: AMIODARONE HCL 200 MG TABLET PO (09:35)
[2022-03-11] MEDS: METOPROLOL TARTRATE 50 MG TAB 100 MG PO (09:35)
[2022-03-11] MEDS: SEVELAMER CARBONATE 800 MG TABLET PO (09:35)
[2022-03-11] MEDS: VENLAFAXINE HCL 25 MG TABLET PO ×2 (09:36→17:02)
[2022-03-11] MEDS: APIXABAN 2.5 MG TABLET PO ×2 (09:36→17:02)
[2022-03-11] MEDS: calcitrioL 0.25 MCG CAPSULE PO (09:36)
[2022-03-11] MEDS: VENLAFAXINE HCL 75 MG TABLET PO ×2 (09:36→17:02)
[2022-03-11] MEDS: allopurinoL 150 MG TABLET BY MOUTH (09:36)
--- NOTE | 2022-03-11 11:34 | PM.PNNEP ---
Progress Note: A&P Assessment and Plan (1) ESRD (end stage renal disease) on dialysis: Code(s): N18.6 - End stage renal disease; Z99.2 - Dependence on renal dialysis Status: Acute Assessment and Plan: End-stage renal disease Hypertensive renal disease with renal failure Hyperkalemia Hyponatremia Fluid overload CHF as a result next item atrial fibrillation with rapid ventricular response anemia chronic kidney disease secondary hyperparathyroidism COVID-19 infection, pneumonia, sepsis plan: -1.5 L of fluid removed on Friday -daughter is at the patient's bedside, I discussed with her that it probably is best to think about dialysis withdrawal. The practicality of this patient going to and from dialysis unit, and also being successful at any fluid removal is going to be very limited if at all. We may be able to remove fluid in the hospital but this 1 necessarily be the case on an outpatient basis. Neurologically also he has been slowly declining as has been physically since especially after his fracture. Given his age, the rehab options are going to be limited and expect poor success. -hands as an option dialysis withdrawal are to be considered. Patient's daughter at bedside and she will discuss with her brother -dialysis as per schedule Subjective Date/time seen: 03/11/22 11:34 End-stage renal disease follow-up Review of Systems Review of Systems: Patient indicates that he is not feeling that well No indication that he has shortness of breath He has bilateral lower extremity swelling Constitutional: Comments: Unable to get Exam Narrative: This is a generalized global deterioration in the patient's health. Globally weak. Edematous legs, GI to see going regular rhythm rate, lungs clear, soft abdomen, has simple questions Objective Data Vital Signs Vital Signs: Vital Signs - 24 hr 03/10/22 12:00 03/10/22 14:00 03/10/22 20:54 Temperature 36.2 C L 36.8 C Pulse Rate 109 H 67 114 H Respiratory Rate 14 16 Blood Pressure 108/57 L 123/88 Pulse Oximetry 92 100 Oxygen Delivery 03/10/22 21:47 03/10/22 20:00 03/10/22 20:00 Temperature Pulse Rate 119 H 112 H Respiratory Rate Blood Pressure Pulse Oximetry Oxygen Delivery Room Air 03/11/22 00:00 03/11/22 04:00 03/11/22 06:00 Temperature 37.1 C Pulse Rate 119 H 106 H 118 H Respiratory Rate 12 Blood Pressure 131/79 Pulse Oximetry 99 Oxygen Delivery Intake/Output Intake/Output: Intake & Output 03/08/22 03/09/22 03/10/22 03/11/22 23:59 23:59 23:59 23:59 Intake Total 780 700 650 100 Output Total 1635 35 100 Balance -855 665 550 100 Meds/Results Medications: Active Medications Generic Name Dose Route Start Last Admin Trade Name Freq PRN Reason Stop Dose Admin Albuterol 2 puff 02/19/22 09:42 Albuterol Sulfate (*Sp) Aerosol 1 Puff INHALATION Q6HRT PRN Shortness Of Breath Allopurinol 150 mg 02/20/22 09:00 03/11/22 09:36 Allopurinol 150 Mg Tablet BY MOUTH 150 mg DAILY [facility] Administration Amiodarone HCl 200 mg 03/08/22 08:00 03/11/22 09:35 Amiodarone Hcl 200 Mg Tablet PO 200 mg DAILY@0800 [facility] Administration Apixaban 2.5 mg 02/20/22 09:00 03/11/22 09:36 Apixaban 2.5 Mg Tablet PO 2.5 mg BID [facility] Administration Artificial Tears 1 drop 03/07/22 16:40 03/08/22 18:49 Artificial Tears Ophth Soln 15 Ml Bottle EACH EYE 1 drop QID PRN Administration Dry Eye(s) Calcitriol 0.25 mcg 02/20/22 09:00 03/11/22 09:36 Calcitriol 0.25 Mcg Capsule PO 0.25 mcg DAILY [facility] Administration Epoetin Julio-epbx 4,000 units 03/06/22 20:00 03/08/22 20:12 Epoetin Julio-Epbx 4,000 Units/Ml Vial SUB-Q 4,000 units [id number] [facility] Administration Guaifenesin 600 mg 02/19/22 10:20 03/11/22 11:05 Guaifenesin 12 Hr 600 Mg Tabcr PO Not Given Q12HR [facility] Metronidazole 500 mg in 100 mls @ 100 mls/hr 03/01/22 18:00 03/11/22 0
--- NOTE | 2022-03-11 13:15 | PCNFU ---
Nutrition Follow-Up Complete: Inadequate oral intake related to swallowing difficulty, loss of appetite, weakness as evidenced by poor intake and refusing meals. Goal: Meet estimated nutrition needs - Not meeting goal Pt current nutrition is Heart healthy diet Minced & moist with slightly thickened liquids. Intakes very poor. Refused 3/5 of last meals. Will not drink Nepro supplement. Nutrition recommendation: No new recommendations. Continue same care plan, diet and supplements. Encourage intakes Last recorded weight is 80.5 kg. Bowel Motility: Last BM 03/09/22 Labs Reviewed:Hgb 11.8, Hct 39, Alb 2.8, Na 135, BUN 43, Cr 5.0 Meds Noted: Eliquis, Zofran, Megace Skin: Stage III pressure medial sacrum. Aime is ordered Additional Notes: having continued discussion with family re: goals of care. Agree with current diet orders and supplements. Monitoring intakes, labs, swallowing ability, supplement tolerance, plan of care Follow up in 3 days
--- NOTE | 2022-03-11 13:54 | PM.IMPN ---
Progress Note: A&P Assessment and Plan (1) Sepsis: Code(s): A41.9 - Sepsis, unspecified organism Status: Acute Assessment and Plan: Patient septic today evident by leukocytosis, tachypnea, tachycardia. WBC increased to 26.0 today. Etiology not clear at this time. Repeat blood cultures obtained, await results. Urine culture. MRSA nares screen. Procalcitonin elevated, however may be elevated given ESRD. Repeat CXR with increased left lower lobe atelectasis/consolidation and patchy bilateral pulmonary opacities. Concern for possible aspiration pneumonia. Begin vancomycin and cefepime. Repeat CBC in 12 hours to assess for improvement. 03/11/2021 interval history: on 03/07 patient was quite somnolent his daughter and son in law were present in the room, on 03/06 patient went to dialysis were not able to remove any fluids as patient was hypotensive, seen his nephrology recommending to consult Cardiology to help maintain blood pressure during dialysis, on 03/07 patient was seen by nuclear plant operator and entersto was stopped to increase his BP, also on 03/07 discussed with patient son and daughter, would like to try couple dialysis treatments, if there is no improvement, may consider hospice or comfort care for the patient. on 03/08 patient BP was still soft, patient had dialysis and was able to remove 1.5L today patient remains clinically stable, his BP and HR are rising patient appears tired, he had difficulty swallowing his medications, his daughter is present and feeding patient, patient will have dialysis today, will monitor and further recommendation to follow. (2) Acute respiratory failure with hypoxia: Code(s): J96.01 - Acute respiratory failure with hypoxia Status: Acute Assessment and Plan: Presented from nursing facility with sudden onset of shortness of breath and O2 sats 56% on room air. Suspect multifactorial in etiology secondary to hypervolemia from missed dialysis, CHF, COVID-19. CXR revealed diffuse lung disease consistent with pulmonary edema versus pneumonia. He was able to be weaned from BiPAP and is now maintaining adequate O2 sats on room air. Continue supplemental oxygen as needed with goal sats 92% or above. (3) Flash pulmonary edema: Code(s): J81.0 - Acute pulmonary edema Status: Acute Assessment and Plan: Likely secondary to missed dialysis. CXR reveals findings of pulmonary edema and small left pleural effusion. Nephrology consulted for dialysis management and patient had improvement in volume status and respiratory symptoms following hemodialysis. Continue to monitor volume status and continue with dialysis schedule (4) COVID-19: Code(s): U07.1 - COVID-19 Status: Acute Assessment and Plan: COVID positive on 02/17/2022. Patient received 2 doses of steroids at nursing facility. Completed 5 days of IV dexamethasone, discontinued on 02/24 fat as he had no ongoing oxygen requirement. Patient not a candidate for remdesivir given his renal failure. Supportive care provided including bronchodilators, expectorants, incentive spirometry, Cornet. Implement isolation precautions. Patient completed COVID vaccination and booster. Inflammatory markers remain elevated (5) Systolic CHF: Code(s): I50.20 - Unspecified systolic (congestive) heart failure Status: Acute Assessment and Plan: Likely contributing to acute respiratory failure. Last echocardiogram revealed left ventricular systolic function with moderately to severely reduced EF of 35-40%. BNP is >15672. volume status improved with hemodialysis. Continue to monitor volume status with accurate I&Os. repeat echocardiogram on 02/21 revealed EF of 30-35% with grade 2 diastolic dysfunction. Continue carvedilol. started on Entresto per Cardiology recommendations on 02/22. (6) Elevated troponin: Code(s): R77.8 - Other specified abnormalities of plasma proteins
[2022-03-11] MEDS: SILVERGEL (ELTA) 45 ML 1 APPLIC TOPICAL (17:02)
[2022-03-11] MEDS: CEFEPIME 0.5 GM in DEXTROSE 5% IN WATER 50 ML IVPB (19:19)
[2022-03-12 06:24] VITALS: BP 128/85; PULSE 122; RESP 16; TEMP 36.6; O2SAT 99
--- NOTE | 2022-03-12 09:02 | PM.DS ---
DS: Admitting Diagnosis Discharge Date 03/12/2022 Admitting Diagnosis Respiratory failure DS: Discharge Diagnosis Discharge Diagnosis (1) Sepsis: Code(s): A41.9 - Sepsis, unspecified organism Status: Acute Assessment and Plan: Patient septic today evident by leukocytosis, tachypnea, tachycardia. WBC increased to 26.0 today. Etiology not clear at this time. Repeat blood cultures obtained, await results. Urine culture. MRSA nares screen. Procalcitonin elevated, however may be elevated given ESRD. Repeat CXR with increased left lower lobe atelectasis/consolidation and patchy bilateral pulmonary opacities. Concern for possible aspiration pneumonia. Begin vancomycin and cefepime. Repeat CBC in 12 hours to assess for improvement. 03/11/2021 interval history: on 03/07 patient was quite somnolent his daughter and son in law were present in the room, on 03/06 patient went to dialysis were not able to remove any fluids as patient was hypotensive, seen his nephrology recommending to consult Cardiology to help maintain blood pressure during dialysis, on 03/07 patient was seen by hot metal charger and entersto was stopped to increase his BP, also on 03/07 discussed with patient son and daughter, would like to try couple dialysis treatments, if there is no improvement, may consider hospice or comfort care for the patient. on 03/08 patient BP was still soft, patient had dialysis and was able to remove 1.5L today patient remains clinically stable, his BP and HR are rising patient appears tired, he had difficulty swallowing his medications, his daughter is present and feeding patient, patient will have dialysis today, will monitor and further recommendation to follow. (2) Acute respiratory failure with hypoxia: Code(s): J96.01 - Acute respiratory failure with hypoxia Status: Acute Assessment and Plan: Presented from nursing facility with sudden onset of shortness of breath and O2 sats 56% on room air. Suspect multifactorial in etiology secondary to hypervolemia from missed dialysis, CHF, COVID-19. CXR revealed diffuse lung disease consistent with pulmonary edema versus pneumonia. He was able to be weaned from BiPAP and is now maintaining adequate O2 sats on room air. Continue supplemental oxygen as needed with goal sats 92% or above. (3) Flash pulmonary edema: Code(s): J81.0 - Acute pulmonary edema Status: Acute Assessment and Plan: Likely secondary to missed dialysis. CXR reveals findings of pulmonary edema and small left pleural effusion. Nephrology consulted for dialysis management and patient had improvement in volume status and respiratory symptoms following hemodialysis. Continue to monitor volume status and continue with dialysis schedule (4) COVID-19: Code(s): U07.1 - COVID-19 Status: Acute Assessment and Plan: COVID positive on 02/17/2022. Patient received 2 doses of steroids at nursing facility. Completed 5 days of IV dexamethasone, discontinued on 02/24 fat as he had no ongoing oxygen requirement. Patient not a candidate for remdesivir given his renal failure. Supportive care provided including bronchodilators, expectorants, incentive spirometry, Cornet. Implement isolation precautions. Patient completed COVID vaccination and booster. Inflammatory markers remain elevated (5) Systolic CHF: Code(s): I50.20 - Unspecified systolic (congestive) heart failure Status: Acute Assessment and Plan: Likely contributing to acute respiratory failure. Last echocardiogram revealed left ventricular systolic function with moderately to severely reduced EF of 35-40%. BNP is >77570. volume status improved with hemodialysis. Continue to monitor volume status with accurate I&Os. repeat echocardiogram on 02/21 revealed EF of 30-35% with grade 2 diastolic dysfunction. Continue carvedilol. started on Entresto per Cardiology recommendations on 02/22. (6)
[2022-03-12] MEDS: SILVERGEL (ELTA) 45 ML 1 APPLIC TOPICAL (11:11)
== END 2022-03-12 11:35 | disposition hospice, home (50) | DRG 640 ==
LOC: ANHED 06:44 → ANHIMU 08:23 → ANH2MED 02-22 21:22
PROVIDERS: Internal Medicine; Internal Medicine Cardiovascular Disease; Internal Medicine Nephrology; Physician Assistant; Admitting Provider Internal Medicine; Emergency Provider Emergency Medicine; PCP Internal Medicine; Visit Provider Family Medicine
DX: E87.70 Fluid overload, unspecified (principal); A41.9 Sepsis, unspecified organism; J69.0 Pneumonitis due to inhalation of food and vomit; J96.01 Acute respiratory failure with hypoxia; N18.6 End stage renal disease; U07.1 COVID-19; I13.2 Hypertensive heart and chronic kidney disease with heart failure and with stage 5 chronic kidney disease, or end stage renal disease; I50.43 Acute on chronic combined systolic (congestive) and diastolic (congestive) heart failure; I48.20 Chronic atrial fibrillation, unspecified; N25.81 Secondary hyperparathyroidism of renal origin; Z99.2 Dependence on renal dialysis; Z79.01 Long term (current) use of anticoagulants; D50.9 Iron deficiency anemia, unspecified; G47.33 Obstructive sleep apnea (adult) (pediatric); N40.0 Benign prostatic hyperplasia without lower urinary tract symptoms; E87.5 Hyperkalemia; E87.1 Hypo-osmolality and hyponatremia; D63.1 Anemia in chronic kidney disease; Z87.891 Personal history of nicotine dependence; Z82.49 Family history of ischemic heart disease and other diseases of the circulatory system; Z79.899 Other long term (current) drug therapy
CPT/HCPCS: 36415; 36600; 70450; 71045; 74176; 76705; 80048; 80053; 80069; 80074; 80076; 80202; 82248; 82550; 82565; 82607; 82746; 82805; 83010; 83615; 83735; 83880; 84132; 84145; 84484; 85025; 85027; 85055; 85610; 85730; 86140; 87040; 87081; 87086; 87636; 92526; 92610; 93005; 93306; 94002; 94003; 94660; 96374; 96375; 97110; 97161; 97164; 97165; 97530; 99285; A9270; G0257; G0378; J0610; J0692; J1100; J1644; J1815; J1940; J2270; J3370; J7030; J7050; P9047; Q5105